=== PATIENT | male | born 1945 | race Caucasian/White ===

== ENCOUNTER → 2018-01-15 10:30 | Outpatient (CLI) | payer MEDICARE, SELFPAY ==
[2018-01-15 12:42] LABS: Absolute Neutrophil Count 4.2 X10^3/uL (2.0-7.7); Basophil# 0.05 X10^3/uL; Basophil% 0.7 % (0-1); Eosinophil# 0.19 X10^3/uL; Eosinophils% 2.8 % (0-5); Hemoglobin 14.4 g/dl (13.0-16.5); Lymphocyte % 23.9 % (19-41); Mean Corp Hgb Conc 34.3 g/gl (32-36); Mean Corpuscular Hgb 31.2 pg (27.0-32.0); Mean Corpuscular Volume 90.9 fL (80-94); Mean Platelet Vol. 11.2 fl (6.2-12.0); Monocyte# 0.69 X10^3/uL; Monocyte% 10.3 % (0-10); Neutrophil # 4.16 X10^3/uL (2.7-7.7); Neutrophil % 62.2 % (47-70); Platelet Count 171 K/mm3 (150-450); RBC Distribution Width CV 13.9 % (11.6-14.6); RBC Distribution Width SD 45.8 fl (35.1-43.9); Red Blood Count 4.62 M/mm3 (4.6-6.2); White Blood Count 6.7 K/mm3 (4.4-11.0)
[2018-01-15 12:48] LABS: POSITIVE COUNT NO; POSITIVE DIFFERENTIAL NO; POSITIVE MORPHOLOGY NO
[2018-01-15 13:01] LABS: ALB/GLOB Ratio 1.2 RATIO (0.9-2.4); AST(SGOT) 18 U/L (15-37); Alanine Aminotransfer ALT/SGPT 34 U/L (16-61); Albumin, Serum 3.8 g/dL (3.2-5.0); Alkaline Phosphatase 65 U/L (45-117); Anion Gap 4 (5-15); BUN 12 mg/dL (7-18); Calcium,Total 8.7 mg/dL (8.5-10.1); Chloride 111 mmol/L (98-107); Creatinine, Serum 1.09 mg/dL (0.70-1.30); EST Glomerular Filtration Rate 71 mL/min (>60); Est Glom Filt Rate - Afr Amer 86 mL/min (>60); Globulin 3.3 g/dL (2.2-4.2); Glucose 91 mg/dL (74-106); Potassium 4.7 mmol/L (3.5-5.1); Protein, Total 7.1 g/dL (6.4-8.2); Sodium Level 142 mmol/L (136-145); Thyroid Stim Hormone (TSH) 4.47 uIU/mL (0.358-3.74)
[2018-01-16 10:02] LABS: Vitamin D,25 Hydroxy 24.5 ng/mL (29.95-100.01)
== END ==
PROVIDERS: Family Provider Family Medicine Geriatric Medicine; PCP Family Medicine Geriatric Medicine; Visit Provider Family Medicine Geriatric Medicine
DX: E55.9 Vitamin D deficiency, unspecified (principal); F52.8 Other sexual dysfunction not due to a substance or known physiological condition; R53.83 Other fatigue
CPT/HCPCS: 36415; 80053; 82306; 84403; 84443; 85025

== ENCOUNTER → 2018-02-04 16:32 | Outpatient (CLI) | payer MEDICARE, SELFPAY ==
--- NOTE | 2018-02-04 16:40 | CT_ITS ---
STUDY: CT ABDOMEN AND PELVIS WITHOUT AND WITH CONTRAST REASON FOR EXAM: Male, 73 years old. Microhematuria RADIATION DOSAGE (If Supplied By Facility): CTDIvol = ( 19.08 ) mGy, DLP = ( 1478.71 ) mGycm TECHNIQUE: Transaxial images were obtained from the lower chest to the upper thighs without oral contrast. Imaging was obtained before and after administration of 100 ml of Isovue 300. Sagittal and coronal images were reconstructed. Individualized dose optimization techniques were used for this CT. COMPARISON: July 14, 2017 FINDINGS: There is minimal dependent atelectasis in both lung bases. There is no pleural effusion. The heart is normal in size. Numerous cysts are again seen in the liver with the largest measuring about 8.2 cm. The gallbladder is not visualized and is presumed surgically absent. The spleen is unremarkable. The pancreas is unremarkable. The adrenal glands are unremarkable. There are cysts in the right kidney with the largest measuring 4 cm in the upper pole. None show abnormal enhancement. There is no dilatation of the collecting system in the right kidney. There are cysts in the left kidney with the largest measuring 4.4 cm in the midpole. None show abnormal enhancement. There is no dilatation of the collecting system in the left kidney. The stomach is unremarkable. The small bowel is unremarkable. There are diverticula in the distal colon without adjacent stranding. The appendix is visualized and appears normal. There are minimal vascular calcifications. The inferior vena cava is unremarkable. The retroperitoneum is unremarkable. There is no free fluid in the abdomen. The urinary bladder is unremarkable. The prostate is normal in size with calcifications. There is a small umbilical hernia containing fat. There are mild degenerative changes in the visualized spine. CT/CT Abd/Pelvis W/WO Contrast IMPRESSION: No acute abnormalities are seen in the abdomen or pelvis. There are benign-appearing cysts in both kidneys. No renal stones are visualized. There is no urinary tract dilatation. No abnormalities are seen in the bladder. Again seen is diverticulosis of the distal colon. There are no acute bowel abnormalities. Electronically Signed: Amy Guo MD at 9:02 EDT Tel Direct: [phone], Service support ,
== END ==
PROVIDERS: Family Provider Family Medicine Geriatric Medicine; PCP Family Medicine Geriatric Medicine; Visit Provider Nurse Practitioner Adult Health
DX: R31.29 Other microscopic hematuria (principal)
CPT/HCPCS: 74178; Q9967

== ENCOUNTER → 2018-07-15 11:58 | Outpatient (CLI) | payer MEDICARE, SELFPAY ==
[2018-07-15 15:39] LABS: Absolute Lymphocyte Count 1.63 X10^3/ul (0.83-4.51); Absolute Neutrophil Count 4.6 X10^3/uL (2.0-7.7); Basophil# 0.04 X10^3/uL; Basophil% 0.6 % (0-1); Eosinophil# 0.13 X10^3/uL; Eosinophils% 1.9 % (0-5); Hematocrit 41.3 % (40-54); Hemoglobin 13.9 g/dl (13.0-16.5); Lymphocyte # 1.63 X10^3/ul (4.0); Lymphocyte % 23.4 % (19-41); Mean Corp Hgb Conc 33.7 g/gl (32-36); Mean Corpuscular Hgb 30.7 pg (27.0-32.0); Mean Corpuscular Volume 91.2 fL (80-94); Mean Platelet Vol. 11.1 fl (6.2-12.0); Monocyte# 0.57 X10^3/uL; Monocyte% 8.2 % (0-10); Neutrophil # 4.58 X10^3/uL (2.7-7.7); Neutrophil % 65.8 % (47-70); Platelet Count 168 K/mm3 (150-450); RBC Distribution Width SD 46.2 fl (35.1-43.9); Red Blood Count 4.53 M/mm3 (4.6-6.2)
[2018-07-15 15:47] LABS: POSITIVE COUNT NO; POSITIVE DIFFERENTIAL NO; POSITIVE MORPHOLOGY NO
[2018-07-15 16:01] LABS: Vitamin D,25 Hydroxy 20.1 ng/mL (29.95-100.01)
[2018-07-15 16:09] LABS: ALB/GLOB Ratio 1.2 RATIO (0.9-2.4); AST(SGOT) 16 U/L (15-37); Alanine Aminotransfer ALT/SGPT 32 U/L (16-61); Albumin, Serum 3.7 g/dL (3.2-5.0); Alkaline Phosphatase 66 U/L (45-117); Anion Gap 10 (5-15); BUN 16 mg/dL (7-18); BUN/Creat Ratio 15.5 RATIO (10-20); Calcium,Total 8.5 mg/dL (8.5-10.1); Chloride 111 mmol/L (98-107); Creatinine, Serum 1.03 mg/dL (0.70-1.30); EST Glomerular Filtration Rate 76 mL/min (>60); Est Glom Filt Rate - Afr Amer 91 mL/min (>60); Globulin 3.2 g/dL (2.2-4.2); Glucose 110 mg/dL (74-106); Potassium 3.9 mmol/L (3.5-5.1); Protein, Total 6.9 g/dL (6.4-8.2); Sodium Level 143 mmol/L (136-145); Thyroid Stim Hormone (TSH) 2.83 uIU/mL (0.358-3.74)
--- OUTSIDE RECORDS SUMMARY | 2018-10-16 16:25 | XMS RPT_ITS ---
:1945 Author Organization [facility] Care Team Providers Name Role Phone Steven, Francois Chi Attending Unavailable Steven, Francois Chi Primary Care Unavailable Steven, Francois Chi Attending Unavailable Steven, Francois Chi Primary Care Unavailable Vikki Kay Attending Unavailable Vikki Kay Referring Unavailable Steven, Francois Chi Primary Care Unavailable PROBLEMS PROBLEMS No Problem Records FoundPROCEDURES PROCEDURES No Procedure Records FoundRESULTS RESULTS CBC W/DIFF, AUTOMATED Collected: 07/15/2018 Status: F Source: [place] 12:00 PM [facility] REPOSITORY TYPE CODE TESTS RESULT OUT OF RANGE REFERENCE UNITS LAB L100.1000 4.4-11.0 K/mm3 Normal WBC 7.0 LAB L100.1200 4.6-6.2 M/mm3 Low RBC 4.53 LAB L100.1300 13.0-16.5 g/dl Normal HGB 13.9 LAB L100.1400 40-54 % Normal HCT 41.3 LAB L100.1500 80-94 fL Normal MCV 91.2 LAB L100.1600 27.0-32.0 pg Normal MCH 30.7 LAB L100.1700 32-36 g/gl Normal MCHC 33.7 LAB L100.1810 11.6-14.6 % Normal RDW CV 14.0 LAB L100.1820 35.1-43.9 fl High RDW SD 46.2 LAB L100.1900 150-450 K/mm3 Normal PLT 168 LAB L100.2000 6.2-12.0 fl Normal MPV 11.1 LAB L100.2100 47-70 % Normal NEUT% 65.8 LAB L100.2200 19-41 % Normal LY% 23.4 LAB L100.2300 0-10 % Normal MONO% 8.2 LAB L100.2400 0-5 % Normal EO% 1.9 LAB L100.2500 0-1 % Normal BASO% 0.6 LAB L100.2550 0.0-0.9 % Normal IM GRAN % 0.100 Result Comment: IG% - Immature Granulocytes (promyelocytes, myelocytes and metamyelocytes) > 1% indicates that a LEFT SHIFT is Present. LAB L100.2620 2.0-7.7 X10 3/uL Normal Absolute Neut 4.6 LAB L100.2720 0.83-4.51 X10 3/ul Normal Absolute Lymph 1.63 Performed By: #### L100.0100 #### [facility] [address] [place], [place], [address] VITAMIN D,25 HYDROXY Collected: 07/15/2018 Status: F Source: [place] 12:00 [facility] REPOSITORY TYPE CODE TESTS RESULT OUT OF REFERENCE UNITS RANGE LAB L506.1000 29.95-100.01 ng/mL Low Vitamin D 20.1 25-OH Result Comment: Vitamin D 25(OH) Status Range Deficiency <20 ng/mL (50nmol/L) Insuffciency 20 - 30 ng/mL (50 - 75 nmol/L) Sufficiency 30 - 100 ng/mL (75 - 250 nmol/L) Toxicity >100 ng/mL (>250 nmol/L) Performed By: #### L506.1000, L509.3000 #### [facility] [address] [place], [place], [address] TESTOSTERONE, SERUM TOTAL Collected: 07/15/2018 Status: F Source: [place] 12:00 PM [facility] REPOSITORY TYPE CODE TESTS RESULT OUT OF REFERENCE UNITS RANGE LAB L509.3000 ng/dL Testosterone Normal 452.06 Result Comment: NORMAL REFERENCE RANGES MALE AGE <50 123.06 - 813.86 ng/dL MALE AGE >50 89.98 - 780.10 ng/dL FEMALE PREMENOPAUSE AGE 21 - 60 9.01 - 47.94 ng/dL FEMALE POSTMENOPAUSE AGE 45 - 89 <7.00 - 45.62 ng/dL REFERENCE RANGE AND METHODOLOGY CHANGED 07/16/2017 Performed By: #### L506.1000, L509.3000 #### [facility] [address] [place], [address] COMPREHENSIVE METABOLIC Collected: 07/15/2018 Status: F [facility] REPOSITORY TYPE CODE TESTS RESULT OUT OF RANGE REFERENCE UNITS LAB L501.0100 74-106 mg/dL High GLU 110 Result Comment: Fasting Glucose result from 100 to 125 mg/dL suggests IMPAIRED HOMEOSTASIS per A.D.A. criteria. Please note revised GLUCOSE reference range effective 2017. LAB L501.1000 7-18 mg/dL Normal BUN 16 LAB L501.1100 0.70-1.30 mg/dL Normal CREAT,SERUM 1.03 Result Comment: The validity of the calculated GFR AND GFRAA in patients over 70 years has not been determined. Clinical correlation is essential. LAB L501.1110 >60 mL/min Normal EST GFR 76 Result Comment: Non- GFR Calc LAB L501.1115 >60 mL/min Normal EST GFR - AA 91 Result Comment: GFR Calc LAB L501.1300 10-20 RATIO Normal BUN/CRE 15.5 LAB L501.1500 6.4-8.2 g/dL T Normal PROT 6.9 LAB L501.1800 3.2-5.0 g/dL Normal ALB 3.7 LAB L501.1950 2.2-4.2 g/dL Normal GLOB 3.2 LAB L501.2000 0.9-2.4 RATIO Normal A/G 1.2 LAB L501.2200 8.5-10.1 mg/dL CA Normal 8.5 LAB L501.4100 15-37 U/L Normal AST 16 LAB L501.4305 45-117 U/L Normal ALK P 66 LAB L501.4405 16-61 U/L Normal ALT 32 LAB L501.4600 0.20-1.00 mg/dL T Normal BILI 0.40 LAB L501.5300 136-145 mmol/L NA Normal 143 LAB L501.5600 3.5-5.1 mmol/L K Normal 3.9 LAB L501.5900 98-107 mmol/L High CL 111 LAB L501.6100 21.0-32.0 mmol/L Normal CO2 22.0 LAB L501.6200 5-15 Normal GAP 10 Performed By: #### L500.4050, L501.9520 #### [facility] [address] [place], [address] THYROID STIM HORMONE Collected: 07/15/2018 Status: F Source: [place] (TSH) 12:00 PM [facility] REPOSITORY TYPE CODE TESTS RESULT OUT OF RANGE REFERENCE UNITS LAB L501.9520 0.358-3.74 uIU/mL Normal TSH 2.83 Performed By: #### L500.4050, L501.9520 #### [facility] [address] [place], [address] CT ABD/PELVIS W/WO Observed: 02/04/2018 Status: F Source: [place] CONTRAST 4:40 PM [facility] REPOSITORY [facility] Imaging Services [address] [place] [address] CT Abd/Pelvis W/WO Contrast MR#: [id number] Acct: [id number] Name: LEWIS WALLER Rep #: [id number] : 1945 M 73 From: Amy Guo MD PCP: Steven ANSARI,[facility] Status: REG CLI Study: CT Abd/Pelvis W/WO Contrast Date of Exam: 02/04/18 Exam# [id number] 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 Microhematuria RADIATION DOSAGE (If Supplied By Facility): CTDIvol = ( 19.08 ) mGy, DLP = ( 1478.71 ) mGycm TECHNIQUE: Transaxial images were obtained from the lower chest to the upper thighs without oral contrast. Imaging was obtained before and after administration of 100 ml of Isovue 300. Sagittal and coronal images were reconstructed. Individualized dose optimization techniques were used for this CT. COMPARISON: July 14, 2017 FINDINGS: There is minimal dependent atelectasis in both lung bases. There is no pleural effusion. The heart is normal in size. Numerous cysts are again seen in the liver with the largest measuring about 8.2 cm. The gallbladder is not visualized and is presumed surgically absent. The spleen is unremarkable. The pancreas is unremarkable. The adrenal glands are unremarkable. There are cysts in the right kidney with the largest measuring 4 cm in the upper pole. None show abnormal enhancement. There is no dilatation of the collecting system in the right kidney. There are cysts in the left kidney with the largest measuring 4.4 cm in the midpole. None show abnormal enhancement. There is no dilatation of the collecting system in the left kidney. The stomach is unremarkable. The small bowel is unremarkable. There are diverticula in the distal colon without adjacent stranding. The appendix is visualized and appears normal. There are minimal vascular calcifications. The inferior vena cava is unremarkable. The retroperitoneum is unremarkable. There is no free fluid in the abdomen. The urinary bladder is unremarkable. The prostate is normal in size with calcifications. There is a small umbilical hernia containing fat. There are mild degenerative changes in the visualized spine. CT/CT Abd/Pelvis W/WO Contrast IMPRESSION: No acute abnormalities are seen in the abdomen or pelvis. There are benign-appearing cysts in both kidneys. No renal stones are visualized. There is no urinary tract dilatation. No abnormalities are seen in the bladder. Again seen is diverticulosis of the distal colon. There are no acute bowel abnormalities. 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 CBC W/DIFF, AUTOMATED Collected: 01/15/2018 Status: F Source: [place] 10:31 AM [facility] REPOSITORY TYPE CODE TESTS RESULT OUT OF RANGE REFERENCE UNITS LAB L100.1000 4.4-11.0 K/mm3 Normal WBC 6.7 LAB L100.1200 4.6-6.2 M/mm3 Normal RBC 4.62 LAB L100.1300 13.0-16.5 g/dl Normal HGB 14.4 LAB L100.1400 40-54 % Normal HCT 42.0 LAB L100.1500 80-94 fL Normal MCV 90.9 LAB L100.1600 27.0-32.0 pg Normal MCH 31.2 LAB L100.1700 32-36 g/gl Normal MCHC 34.3 LAB L100.1810 11.6-14.6 % Normal RDW CV 13.9 LAB L100.1820 35.1-43.9 fl High RDW SD 45.8 LAB L100.1900 150-450 K/mm3 Normal PLT 171 LAB L100.2000 6.2-12.0 fl Normal MPV 11.2 LAB L100.2100 47-70 % Normal NEUT% 62.2 LAB L100.2200 19-41 % Normal LY% 23.9 LAB L100.2300 0-10 % High MONO% 10.3 LAB L100.2400 0-5 % Normal EO% 2.8 LAB L100.2500 0-1 % Normal BASO% 0.7 LAB L100.2550 0.0-0.9 % Normal IM GRAN % 0.100 Result Comment: IG% - Immature Granulocytes (promyelocytes, myelocytes and metamyelocytes) > 1% indicates that a LEFT SHIFT is Present. LAB L100.2620 2.0-7.7 X10 3/uL Normal Absolute Neut 4.2 LAB L100.2720 0.83-4.51 X10 3/ul Normal Absolute Lymph 1.60 Performed By: #### L100.0100 #### [facility] [address] [place], [address] COMPREHENSIVE METABOLIC Collected: 01/15/2018 Status: F Source: [facility] 10:31 AM [facility] REPOSITORY TYPE CODE TESTS RESULT OUT OF RANGE REFERENCE UNITS LAB L501.0100 74-106 mg/dL Normal GLU 91 Result Comment: Please note revised GLUCOSE reference range effective 2017. LAB L501.1000 7-18 mg/dL Normal BUN 12 LAB L501.1100 0.70-1.30 mg/dL Normal CREAT,SERUM 1.09 Result Comment: The validity of the calculated GFR AND GFRAA in patients over 70 years has not been determined. Clinical correlation is essential. LAB L501.1110 >60 mL/min Normal EST GFR 71 Result Comment: Non- GFR Calc LAB L501.1115 >60 mL/min Normal EST GFR - AA 86 Result Comment: GFR Calc LAB L501.1300 10-20 RATIO Normal BUN/CRE 11.0 LAB L501.1500 6.4-8.2 g/dL T Normal PROT 7.1 LAB L501.1800 3.2-5.0 g/dL Normal ALB 3.8 LAB L501.1950 2.2-4.2 g/dL Normal GLOB 3.3 LAB L501.2000 0.9-2.4 RATIO Normal A/G 1.2 LAB L501.2200 8.5-10.1 mg/dL CA Normal 8.7 LAB L501.4100 15-37 U/L Normal AST 18 LAB L501.4305 45-117 U/L Normal ALK P 65 LAB L501.4405 16-61 U/L Normal ALT 34 LAB L501.4600 0.20-1.00 mg/dL T Normal BILI 0.60 LAB L501.5300 136-145 mmol/L NA Normal 142 LAB L501.5600 3.5-5.1 mmol/L K Normal 4.7 LAB L501.5900 98-107 mmol/L High CL 111 LAB L501.6100 21.0-32.0 mmol/L Normal CO2 27.0 LAB L501.6200 5-15 Low GAP 4 Performed By: #### L500.4050, L501.9520 #### [facility] [address] [facility] [place], [place], [address] THYROID STIM HORMONE Collected: 01/15/2018 Status: F Source: [place] (TSH) 10:31 AM [facility] REPOSITORY TYPE CODE TESTS RESULT OUT OF RANGE REFERENCE UNITS LAB L501.9520 0.358-3.74 uIU/mL High TSH 4.47 Performed By: #### L500.4050, L501.9520 #### [facility] [address] [place], [place], [id number] VITAMIN D,25 HYDROXY Collected: 01/15/2018 Status: F Source: [place] 10:31 AM [facility] REPOSITORY TYPE CODE TESTS RESULT OUT OF REFERENCE UNITS RANGE LAB L506.1000 29.95-100.01 ng/mL Low Vitamin D 24.5 25-OH Result Comment: Vitamin D 25(OH) Status Range Deficiency <20 ng/mL (50nmol/L) Insuffciency 20 - 30 ng/mL (50 - 75 nmol/L) Sufficiency 30 - 100 ng/mL (75 - 250 nmol/L) Toxicity >100 ng/mL (>250 nmol/L) Performed By: #### L506.1000, L509.3000 #### [facility] [address] [place], [address] TESTOSTERONE, SERUM TOTAL Collected: 01/15/2018 Status: F Source: [place] 10:31 AM [facility] REPOSITORY TYPE CODE TESTS RESULT OUT OF REFERENCE UNITS RANGE LAB L509.3000 ng/dL Testosterone Normal 509.16 Result Comment: NORMAL REFERENCE RANGES MALE AGE <50 123.06 - 813.86 ng/dL MALE AGE >50 89.98 - 780.10 ng/dL FEMALE PREMENOPAUSE AGE 21 - 60 9.01 - 47.94 ng/dL FEMALE POSTMENOPAUSE AGE 45 - 89 <7.00 - 45.62 ng/dL REFERENCE RANGE AND METHODOLOGY CHANGED 07/16/2017 Performed By: #### L506.1000, L509.3000 #### [facility] [address] [place], [place], [address] ALLERGIES ALLERGIES No Allergies Records FoundENCOUNTERS ENCOUNTERS ADMIT/DISCHARGE ACCOUNT ADMITTING ENCOUNTER LOCATION SOURCE NUMBER CLASS 07/15/2018 [id number] Ambulatory [facility] 1 [facility] ing:POLAB3 Repository 02/04/2018 [id number] Ambulatory [address] ing:CT Repository 01/15/2018 [id number] Ambulatory [address] ing:POLAB3 Repository PAYERS PAYERS ENCOUNTER GUARANTOR PAYER SUBSCRIBER SOURCE 07/15/2018 Lewis Loera Primary Insurance:SATHYA Powellnick1471 MCR HMOPolicy Number: HostnickDOB: Community Mehul Dangelofective [id number] [place] Date[facility]15-[place]-[facility] BOX Repository [address]Ftw: [phone] [place], [place] [phone] (HP) [phone]: 07/15/2018 Secondary NOT GIVENUNK [place] Insurance:SELF PAY Community INSURANCEPolicy Number: Hospital Effective Repository Date:2018-02-02 02/04/2018 Lewis A Primary Insurance:AETNA Lewis A [place] [id number] [facility] HMOPolicy Number: HostnickDOB: Community Mehul Dangelofective [id number] [place] Date:6597-48-80OO BOX Repository [address]Jra: [phone] [place] [phone] (HP) [phone]: 02/04/2018 Secondary NOT GIVENUNK [place] Insurance:SELF PAY Community INSURANCEPolicy Number: Hospital Effective Repository Date:2018-01-20 01/15/2018 Lewis A Primary Insurance:AETNA Lewis A [place] [id number] [facility]: HostnickDOB: Community Mehul Dangelofective [id number] Date[place]5634-09-44CJ BOX Repository [address]Rqv: [phone] [place], [place] [phone] (HP) [phone]: 01/15/2018 Secondary NOT GIVENUNK [place] Insurance:SELF PAY Community INSURANCEPolicy Number: Hospital Effective Repository Date:2018-01-15
== END ==
PROVIDERS: Family Provider Family Medicine Geriatric Medicine; PCP Family Medicine Geriatric Medicine; Visit Provider Family Medicine Geriatric Medicine
DX: E55.9 Vitamin D deficiency, unspecified (principal); E03.9 Hypothyroidism, unspecified; R53.83 Other fatigue; F52.8 Other sexual dysfunction not due to a substance or known physiological condition
CPT/HCPCS: 36415; 80053; 82306; 84403; 84443; 85025

== ENCOUNTER → 2019-01-13 | Outpatient (CLI) | payer MEDICARE, SELFPAY ==
[2019-01-13 12:37] LABS: Absolute Lymphocyte Count 1.38 X10^3/ul (0.83-4.51); Absolute Neutrophil Count 4.3 X10^3/uL (2.0-7.7); Basophil# 0.03 X10^3/uL; Basophil% 0.5 % (0-1); Eosinophils% 1.6 % (0-5); Hematocrit 42.9 % (40-54); Hemoglobin 14.8 g/dl (13.0-16.5); Lymphocyte # 1.38 X10^3/ul (4.0); Lymphocyte % 21.7 % (19-41); Mean Corp Hgb Conc 34.5 g/gl (32-36); Mean Corpuscular Hgb 30.7 pg (27.0-32.0); Mean Platelet Vol. 10.7 fl (6.2-12.0); Monocyte# 0.51 X10^3/uL; Neutrophil # 4.34 X10^3/uL (2.7-7.7); Platelet Count 178 K/mm3 (150-450); RBC Distribution Width CV 13.9 % (11.6-14.6); Red Blood Count 4.82 M/mm3 (4.6-6.2); White Blood Count 6.4 K/mm3 (4.4-11.0)
[2019-01-13 12:38] LABS: POSITIVE COUNT NO; POSITIVE DIFFERENTIAL NO; POSITIVE MORPHOLOGY NO
[2019-01-13 13:03] LABS: Vitamin D,25 Hydroxy 24.8 ng/mL (29.95-100.01)
[2019-01-13 13:13] LABS: ALB/GLOB Ratio 1.1 RATIO (0.9-2.4); AST(SGOT) 18 U/L (15-37); Alanine Aminotransfer ALT/SGPT 32 U/L (16-61); Albumin, Serum 3.7 g/dL (3.2-5.0); Alkaline Phosphatase 68 U/L (45-117); Anion Gap 8 (5-15); BUN 14 mg/dL (7-18); BUN/Creat Ratio 11.8 RATIO (10-20); Calcium,Total 8.7 mg/dL (8.5-10.1); Chloride 111 mmol/L (98-107); Creatinine, Serum 1.19 mg/dL (0.70-1.30); EST Glomerular Filtration Rate 64 mL/min (>60); Est Glom Filt Rate - Afr Amer 77 mL/min (>60); Globulin 3.3 g/dL (2.2-4.2); Glucose 135 mg/dL (74-106); Potassium 4.1 mmol/L (3.5-5.1); Sodium Level 144 mmol/L (136-145); Thyroid Stim Hormone (TSH) 2.53 uIU/mL (0.358-3.74)
== END | disposition home or self-care (01) ==
PROVIDERS: Family Provider Family Medicine Geriatric Medicine; PCP Family Medicine Geriatric Medicine; Visit Provider Family Medicine Geriatric Medicine
DX: E55.9 Vitamin D deficiency, unspecified (principal); R53.83 Other fatigue; F52.8 Other sexual dysfunction not due to a substance or known physiological condition
CPT/HCPCS: 36415; 80053; 82306; 84403; 84443; 85025

== ENCOUNTER → 2019-08-26 09:01 | Outpatient (CLI) | payer MEDICARE, SELFPAY ==
[2019-08-26 10:47] LABS: ALB/GLOB Ratio 1.3 RATIO (0.9-2.4); AST(SGOT) 15 U/L (15-37); Alanine Aminotransfer ALT/SGPT 37 U/L (16-61); Albumin, Serum 3.9 g/dL (3.2-5.0); Alkaline Phosphatase 59 U/L (45-117); Anion Gap 4 (5-15); BUN 15 mg/dL (7-18); BUN/Creat Ratio 13.6 RATIO (10-20); Calcium,Total 8.8 mg/dL (8.5-10.1); Chloride 115 mmol/L (98-107); Cholesterol 132 mg/dL (200); EST Glomerular Filtration Rate 70 mL/min (>60); Est Glom Filt Rate - Afr Amer 85 mL/min (>60); Globulin 2.9 g/dL (2.2-4.2); Glucose 95 mg/dL (74-106); High Density Lipoprotein 57 mg/dL; Potassium 4.2 mmol/L (3.5-5.1); Protein, Total 6.8 g/dL (6.4-8.2); Sodium Level 144 mmol/L (136-145); T4 Free Direct 0.93 ng/dL (0.76-1.46); Thyroid Stim Hormone (TSH) 3.53 uIU/mL (0.358-3.74); Triglycerides 65 mg/dL; Very Low Density Lipoprotein 13 mg/dL (5-40)
[2019-08-27 19:24] LABS: Thyroglobulin Antibody < 1.0 IU/mL (0.0-0.9); Thyroid Peroxidase AB 9 IU/mL (0-34)
== END ==
PROVIDERS: PCP Family Medicine; Referring Provider Family Medicine; Visit Provider Family Medicine
DX: E03.9 Hypothyroidism, unspecified (principal); E78.00 Pure hypercholesterolemia, unspecified
CPT/HCPCS: 36415; 80053; 80061; 84439; 84443; 86376; 86800

== ENCOUNTER → 2019-09-21 11:55 | Outpatient (CLI) | payer MEDICARE, SELFPAY ==
[2019-09-21 14:06] LABS: Anion Gap 4 (5-15); BUN 14 mg/dL (7-18); BUN/Creat Ratio 10.9 RATIO (10-20); Calcium,Total 9.2 mg/dL (8.5-10.1); Chloride 110 mmol/L (98-107); Creatinine, Serum 1.29 mg/dL (0.70-1.30); EST Glomerular Filtration Rate 58 mL/min (>60); Est Glom Filt Rate - Afr Amer 70 mL/min (>60); Glucose 110 mg/dL (74-106); Potassium 3.7 mmol/L (3.5-5.1); Sodium Level 142 mmol/L (136-145)
== END ==
PROVIDERS: PCP Family Medicine; Referring Provider Family Medicine; Visit Provider Family Medicine
DX: I10 Essential (primary) hypertension (principal)
CPT/HCPCS: 36415; 80048

== ENCOUNTER 2019-10-01 15:03 | Emergency (ER) | payer MEDICARE, SELFPAY ==
[2019-10-01 15:04] VITALS: BP 175/93; PULSE 65; RESP 18; TEMP 36; O2SAT 98; BMI 28.1
--- NOTE | 2019-10-01 15:30 | CT_ITS ---
STUDY: CT BRAIN WITHOUT CONTRAST REASON FOR EXAM: Male, 74 years old. DIZZINESS RADIATION DOSAGE (If Supplied By Facility): CTDIvol = ( 60.81 ) mGy, DLP = ( 1112.69 ) mGycm TECHNIQUE: Transaxial CT imaging of the brain was performed without administration of intravenous contrast material. Individualized dose optimization techniques were used for this CT. COMPARISON: No relevant priors. FINDINGS: Normal soft tissue structures. Normal calvarium. There is mild cerebral atrophy with widening of the extra-axial spaces and ventricular dilatation. There are areas of decreased attenuation within the white matter tracts of the supratentorial brain, consistent with microvascular disease changes. Normal basal ganglia and thalami. Normal brainstem. There is mild cerebellar atrophy. There is no intracranial hemorrhage. There are no findings of an acute ischemic infarction. Normal visualized paranasal sinuses. CT/Brain/Head without Contrast IMPRESSION: Chronic involutional changes of the brain. No acute abnormalities are seen. Electronically Signed: Brent Pepe MD at 16:25 EST , Service support ,
--- NOTE | 2019-10-01 15:30 | EKG12_ITS ---
Test Reason : DIZZINESS Blood Pressure : / mmHG Vent. Rate : 056 BPM Atrial Rate : 056 BPM P-R Int : 136 ms QRS Dur : 104 ms QT Int : 442 ms P-R-T Axes : 002 -20 026 degrees QTc Int : 426 ms Sinus bradycardia Otherwise normal ECG Confirmed by GERALDINE ANSARI, ARTURO ([id number]), pictures editor VJ PARMAR ([id number]) on 10/04/2019 3:28:24 PM Referred By: NOEL Confirmed By:ARTURO CHANDLER MD
--- NOTE | 2019-10-01 15:33 | ED.VISSUMM ---
- ER Visit Summary Date of Service: 10/01/19 Chief Complaint: Dizziness History of Present Illness: The patient is a 74 M who presents with dizziness that began yesterday. Patient states it has been intermittent. Patient states he saw his primary care physician today and was given a prescription for Antivert. Patient states he took 1 dose earlier today which helped. Patient states she laid down and when he woke back up the dizziness had returned. Patient describes the dizziness as a spinning sensation. Patient states nothing makes it better or worse. Patient denies any ear pain or tinnitus. Patient admits to nausea but denies any vomiting. Physical Examination: Vital signs are stable. Patient is afebrile. Patient is in no acute distress. Pupils are equal, round, and reactive to light bilaterally. Extraocular muscles are intact. There is no nystagmus noted. Oral mucosa is pink and moist. Neck is supple. Trachea is midline. There is no JVD. Heart was regular rate and rhythm. Lungs are clear and equal bilaterally. Abdomen is soft. Bowel sounds are normal. There is no tenderness. Cranial nerves II through XII are intact. There are no focal motor or sensory deficits noted. Test Results: CT scan of the brain was obtained. There are chronic changes. This was interpreted by the radiologist. EKG showed a normal sinus rhythm with a rate of 56. There are no acute ST or T wave changes. CBC and comprehensive metabolic profile was obtained and was within normal limits. Troponin was normal. Emergency Department Course and Treatment: Patient was given a dose of Valium here. Patient was feeling better on reevaluation. Patient was given a prescription for Valium to take. Patient was instructed to follow-up with his primary care physician in 5 to 7 days. Patient understood and was agreeable with the plan. All questions were answered. Disposition: Discharge home Impression: Vertigo This note was generated with Proficient dictation software. It may contain incorrect words, spelling, and punctuation that were not noted in review of the chart prior to signing ED Disposition - Plan for ED Patient: Disposition: Home or Assisted Living Diagnosis: Vertigo Instructions: VERTIGO, Unspecified Prescriptions: Diazepam [Valium] 2 mg PO TID PRN PRN #10 tab PRN Reason: Vertigo Prescription Printed Referrals: Mele Monroe MD [Primary Care Provider] - 3-5 Days
--- NOTE | 2019-10-01 15:36 | NURSING ---
NO OLD EKGS
[2019-10-01 15:48] VITALS: PULSE 54; RESP 16
[2019-10-01 15:49] LABS: Absolute Lymphocyte Count 1.24 X10^3/uL (0.83-4.51); Absolute Neutrophil Count 4.3 X10^3/uL (2.0-7.7); Basophil# 0.04 X10^3/uL; Basophil% 0.7 % (0-1); Eosinophil# 0.09 X10^3/uL; Eosinophils% 1.5 % (0-5); Hematocrit 40.2 % (40-54); Hemoglobin 13.7 g/dL (13.0-16.5); Lymphocyte # 1.24 X10^3/ul (4.0); Lymphocyte % 20.2 % (19-41); Mean Corp Hgb Conc 34.1 g/dL (32-36); Mean Corpuscular Hgb 30.9 pg (27.0-32.0); Mean Corpuscular Volume 90.7 fL (80-94); Mean Platelet Vol. 10.5 fl (6.2-12.0); Monocyte# 0.51 X10^3/uL; Monocyte% 8.3 % (0-10); NRBC Flagged by Analyzer 0 % (0-5); Neutrophil # 4.25 X10^3/uL (2.7-7.7); Platelet Count 154 K/mm3 (150-450); RBC Distribution Width CV 13.8 % (11.6-14.6); RBC Distribution Width SD 46.2 fl (35.1-43.9); Red Blood Count 4.43 M/mm3 (4.6-6.2); White Blood Count 6.2 K/mm3 (4.4-11.0)
[2019-10-01] MEDS: 0.9% Normal Saline 1,000 ML 1000 ML IV (15:51)
[2019-10-01] MEDS: diazePAM 5 MG Tablet 2.5 MG PO (15:51)
[2019-10-01 16:07] LABS: ALB/GLOB Ratio 1.1 RATIO (0.9-2.4); AST(SGOT) 17 U/L (15-37); Alanine Aminotransfer ALT/SGPT 33 U/L (16-61); Albumin, Serum 3.5 g/dL (3.2-5.0); Alkaline Phosphatase 54 U/L (45-117); Anion Gap 4 (5-15); BUN 13 mg/dL (7-18); BUN/Creat Ratio 12.1 RATIO (10-20); Calcium,Total 8.5 mg/dL (8.5-10.1); Chloride 114 mmol/L (98-107); Creatinine, Serum 1.07 mg/dL (0.70-1.30); EST Glomerular Filtration Rate 72 mL/min (>60); Est Glom Filt Rate - Afr Amer 87 mL/min (>60); Estimated Creatinine Clearance 60.37 ml/min; Globulin 3.1 g/dL (2.2-4.2); Glucose 117 mg/dL (74-106); Potassium 4.1 mmol/L (3.5-5.1); Protein, Total 6.6 g/dL (6.4-8.2); Sodium Level 143 mmol/L (136-145)
[2019-10-01 16:40] VITALS: BP 136/78; PULSE 51; RESP 14; O2SAT 99
[2019-10-01 17:44] VITALS: RESP 16
== END 2019-10-01 17:45 | disposition home or self-care (01) ==
PROVIDERS: Emergency Provider Emergency Medicine; PCP Family Medicine
DX: R42 Dizziness and giddiness (principal)
CPT/HCPCS: 70450; 80053; 84484; 85025; 93005; 96360; 99283; J7030; A4216

== ENCOUNTER → 2019-12-30 10:16 | Outpatient (CLI) | payer MEDICARE, SELFPAY ==
[2019-12-30 12:39] LABS: ALB/GLOB Ratio 1.2 RATIO (0.9-2.4); AST(SGOT) 20 U/L (15-37); Alanine Aminotransfer ALT/SGPT 37 U/L (16-61); Albumin, Serum 3.7 g/dL (3.2-5.0); Alkaline Phosphatase 56 U/L (45-117); Anion Gap 6 (5-15); BUN 11 mg/dL (7-18); BUN/Creat Ratio 10.7 RATIO (10-20); Calcium,Total 8.9 mg/dL (8.5-10.1); Chloride 111 mmol/L (98-107); Creatinine, Serum 1.03 mg/dL (0.70-1.30); EST Glomerular Filtration Rate 75 mL/min (>60); Est Glom Filt Rate - Afr Amer 91 mL/min (>60); Globulin 3.1 g/dL (2.2-4.2); Glucose 97 mg/dL (74-106); Potassium 4.1 mmol/L (3.5-5.1); Protein, Total 6.8 g/dL (6.4-8.2); Sodium Level 143 mmol/L (136-145)
== END ==
PROVIDERS: PCP Family Medicine; Referring Provider Family Medicine; Visit Provider Family Medicine
DX: E78.00 Pure hypercholesterolemia, unspecified (principal)
CPT/HCPCS: 36415; 80053

== ENCOUNTER → 2020-03-30 17:42 | Outpatient (CLI) | payer MEDICARE, SELFPAY | PROVIDERS: PCP Family Medicine; Referring Provider Family Medicine; Visit Provider Family Medicine | DX: N45.1 Epididymitis (principal) | CPT/HCPCS: 87086; 87088 ==

== ENCOUNTER → 2020-06-29 09:27 | Outpatient (CLI) | payer MEDICARE, SELFPAY ==
[2020-06-29 12:19] LABS: Absolute Lymphocyte Count 1.81 X10^3/uL (0.83-4.51); Absolute Neutrophil Count 5.1 X10^3/uL (2.0-7.7); Basophil# 0.06 X10^3/uL; Basophil% 0.8 % (0-1); Eosinophil# 0.15 X10^3/uL; Eosinophils% 1.9 % (0-5); Hematocrit 44.2 % (40-54); Hemoglobin 14.2 g/dL (13.0-16.5); Lymphocyte # 1.81 X10^3/ul (4.0); Lymphocyte % 23.1 % (19-41); Mean Corp Hgb Conc 32.1 g/dL (32-36); Mean Corpuscular Hgb 30.3 pg (27.0-32.0); Mean Corpuscular Volume 94.4 fL (80-94); Mean Platelet Vol. 11.2 fl (6.2-12.0); Monocyte# 0.64 X10^3/uL; Monocyte% 8.2 % (0-10); NRBC Flagged by Analyzer 0 % (0-5); Neutrophil # 5.14 X10^3/uL (2.7-7.7); Neutrophil % 65.7 % (47-70); Platelet Count 175 K/mm3 (150-450); RBC Distribution Width CV 14.1 % (11.6-14.6); RBC Distribution Width SD 49.1 fl (35.1-43.9); Red Blood Count 4.68 M/mm3 (4.6-6.2); White Blood Count 7.8 K/mm3 (4.4-11.0)
[2020-06-29 12:39] LABS: ALB/GLOB Ratio 1.2 RATIO (0.9-2.4); AST(SGOT) 15 U/L (15-37); Alanine Aminotransfer ALT/SGPT 27 U/L (16-61); Alkaline Phosphatase 63 U/L (45-117); Anion Gap 4 (5-15); BUN 16 mg/dL (7-18); BUN/Creat Ratio 13.9 RATIO (10-20); Chloride 114 mmol/L (98-107); Cholesterol 138 mg/dL (200); Creatinine, Serum 1.15 mg/dL (0.70-1.30); EST Glomerular Filtration Rate 66 mL/min (>60); Est Glom Filt Rate - Afr Amer 80 mL/min (>60); Globulin 3.3 g/dL (2.2-4.2); Glucose 90 mg/dL (74-106); High Density Lipoprotein 57 mg/dL; Potassium 4.2 mmol/L (3.5-5.1); Protein, Total 7.3 g/dL (6.4-8.2); Sodium Level 144 mmol/L (136-145); T4 Free Direct 1.03 ng/dL (0.76-1.46); Thyroid Stim Hormone (TSH) 3.77 uIU/mL (0.358-3.74); Triglycerides 55 mg/dL; Very Low Density Lipoprotein 11 mg/dL (5-40)
== END ==
PROVIDERS: PCP Family Medicine; Visit Provider Family Medicine
DX: E03.9 Hypothyroidism, unspecified (principal); E78.00 Pure hypercholesterolemia, unspecified
CPT/HCPCS: 36415; 80053; 80061; 84439; 84443; 85025

== ENCOUNTER → 2020-07-20 12:45 | Outpatient (CLI) | payer MEDICARE, SELFPAY | PROVIDERS: PCP Family Medicine; Referring Provider Family Medicine; Visit Provider Family Medicine | DX: B34.9 Viral infection, unspecified (principal) | CPT/HCPCS: 87635; U0003 ==

== ENCOUNTER → 2020-08-02 09:59 | Outpatient (CLI) | payer MEDICARE, SELFPAY ==
--- NOTE | 2020-08-02 10:02 | RAD_ITS ---
STUDY: X-RAY CHEST REASON FOR EXAM: Male, 75 years old. chest pain TECHNIQUE: PA and lateral views of the chest. COMPARISON: 05/23/2016 FINDINGS: The lungs are clear and expanded. There is no demonstrated pleural abnormality. Normal size heart. Normal mediastinum and berhane. Normal visualized pulmonary arteries. Normal visualized aortic arch and descending thoracic aorta. Normal visualized thoracic spine. Normal visualized ribs, clavicles, and shoulders. There is no demonstrated abnormality of the visualized soft tissue structures of the upper abdomen. RAD/Chest PA and Lateral IMPRESSION: Normal x-ray examination of the chest. Electronically Signed: Atif Banks MD at 17:16 EST Tel , Service support ,
[2020-08-02 10:14] LABS: Bacteria 0 SEEN /hpf (None Seen); Mucous, Urine 0 SEEN /hpf (<or=2+); Red Blood Cells-Urine 0 SEEN /hpf (0-5); Squamous Epithelial Cells - UA 0 SEEN /hpf (0-5); White Blood Cells 0 SEEN /hpf (0-5)
[2020-08-02 12:49] LABS: ALB/GLOB Ratio 1.2 RATIO (0.9-2.4); AST(SGOT) 10 U/L (15-37); Alanine Aminotransfer ALT/SGPT 30 U/L (16-61); Alkaline Phosphatase 63 U/L (45-117); BUN 13 mg/dL (7-18); BUN/Creat Ratio 11.8 RATIO (10-20); Calcium,Total 8.6 mg/dL (8.5-10.1); Chloride 114 mmol/L (98-107); Cholesterol 138 mg/dL (200); EST Glomerular Filtration Rate 70 mL/min (>60); Est Glom Filt Rate - Afr Amer 84 mL/min (>60); Globulin 3.3 g/dL (2.2-4.2); Glucose 94 mg/dL (74-106); Potassium 4.3 mmol/L (3.5-5.1); Protein, Total 7.3 g/dL (6.4-8.2); Sodium Level 142 mmol/L (136-145); Triglycerides 58 mg/dL
[2020-08-02 12:50] LABS: Absolute Lymphocyte Count 1.42 X10^3/uL (0.83-4.51); Absolute Neutrophil Count 3.8 X10^3/uL (2.0-7.7); Anion Gap 2 (5-15); Basophil# 0.04 X10^3/uL; Basophil% 0.7 % (0-1); Eosinophil# 0.12 X10^3/uL; Eosinophils% 2.1 % (0-5); Hemoglobin 14.7 g/dL (13.0-16.5); High Density Lipoprotein 55 mg/dL; Lymphocyte # 1.42 X10^3/ul (4.0); Lymphocyte % 24.3 % (19-41); Mean Corp Hgb Conc 33.4 g/dL (32-36); Mean Corpuscular Hgb 30.8 pg (27.0-32.0); Mean Corpuscular Volume 92.2 fL (80-94); Mean Platelet Vol. 11.3 fl (6.2-12.0); Monocyte# 0.46 X10^3/uL; Monocyte% 7.9 % (0-10); NRBC Flagged by Analyzer 0 % (0-5); Neutrophil % 64.8 % (47-70); Platelet Count 158 K/mm3 (150-450); RBC Distribution Width CV 13.1 % (11.6-14.6); RBC Distribution Width SD 44.3 fl (35.1-43.9); Red Blood Count 4.77 M/mm3 (4.6-6.2); Thyroid Stim Hormone (TSH) 3.57 uIU/mL (0.358-3.74); Very Low Density Lipoprotein 12 mg/dL (5-40); White Blood Count 5.9 K/mm3 (4.4-11.0)
[2020-08-02 13:11] LABS: Color, Urine Yellow (Yellow); Glucose, Dipstick Normal (Normal); Ketone-Dipstick Negative (Negative); Leukocyte Esterase-Dipstick Negative /ul (Negative); Nitrite-Dipstick Negative (Negative); Occult Blood-Urine Negative /ul (Negative); Protein-Dipstick Negative (Negative); Urine Bilirubin Dipstick Negative (Negative); Urine Clarity Clear (Clear); Urine Urobilinogen Normal (Normal)
== END ==
PROVIDERS: PCP Family Medicine; Referring Provider Family Medicine; Visit Provider Family Medicine
DX: R07.9 Chest pain, unspecified (principal); R03.0 Elevated blood-pressure reading, without diagnosis of hypertension; E03.9 Hypothyroidism, unspecified
CPT/HCPCS: 71046; 80053; 80061; 81001; 84443; 84484; 85025

== ENCOUNTER → 2020-08-03 07:10 | Outpatient (CLI) | payer MEDICARE, SELFPAY ==
--- NOTE | 2020-08-03 07:13 | ECHOD_ITS ---
Version 2 Reason For Study: SOB Procedure This was a 2D Doppler, Color Flow transthoracic echocardiogram. Exam performed in department. Left Ventricle Normal LV size. Left ventricular systolic function is normal. The estimated ejection fraction is 60 %. Stage 1 diastolic dysfunction. No regional wall motion abnormalities noted. Right Ventricle Normal RV size. Normal systolic function. Atria Normal left atrium. Normal right atrium. Mitral Valve Normal mitral valve. Mild (1+) eccentric mitral valve insufficiency. Tricuspid Valve Normal tricuspid valve. Mild (1+) tricuspid valve insufficiency. Pulmonary artery systolic pressure is 38 mmHg. Aortic Valve Normal aortic valve. Trisinus/trileaflet aortic valve. Pulmonic Valve Normal pulmonic valve. Great Vessels Normal aortic root. The pulmonary artery is normal size. Normal inferior vena cava. Pericardium/Pleural No pericardial effusion. Large hepatic cyst 8 x 8cm. MMode/2D Measurements & Calculations LVIDd: 4.2 cm IVSd: 1.1 cm Ao root diam: 4.0 cm LVIDs: 2.9 cm LVPWd: 1.1 cm RVDd: 3.3 cm FS: 30.4 % LAV(MOD-bp): 58.9 ml LA A4 area: 18.4 cm2 LA dimension(2D): 4.3 cm LAV(MOD-bp) Indexed: 30.1 ml/m2 LAV(MOD-sp2): 61.7 ml LAV(MOD-sp4): 50.9 ml RA A4 area: 17.1 cm2 Time Measurements MV dec time: 0.17 sec Doppler Measurements & Calculations MV E max osorio: 44.7 cm/sec Lat Peak E' Osorio: 7.4 cm/sec Med Peak E' Osorio: 5.7 cm/sec MV A max osorio: 71.9 cm/sec E/E' lat: 6.0 E/E' med: 7.9 MV E/A: 0.62 Ao V2 max: 106.6 cm/sec LV V1 max: 83.5 cm/sec PA V2 max: 101.9 cm/sec Ao max P.6 mmHg LV V1 max P.8 mmHg PI end-d osorio: 88.8 cm/sec TR max osorio: 294.5 cm/sec TR max P.7 mmHg Interpretation Summary Normal LV size. Left ventricular systolic function is normal. The estimated ejection fraction is 60 %. Stage 1 diastolic dysfunction. Pulmonary artery systolic pressure is 38 mmHg. Ordering Physician: Mele Monroe Referring Physician: Mele Monroe Performed By: Smitha Coker RDCS, RVT
--- NOTE | 2020-08-03 16:33 | STRESSREP ---
Stress Test Report Exercise myocardial perfusion protocol. 75-year-old man with a history of chest pain. Medications thyroxine and finasteride. Stress protocol: Resting EKG demonstrates sinus rhythm with a rate of 65 bpm normal intervals are noted resting blood pressure 148/84 mmHg. The patient exercised according to regular Munir protocol for a total duration of 9 minutes completing stage III of the Munir protocol. The maximum heart rate attained was 148 bpm which is 100% of max impacted heart rate the maximum workload was 10.1 metabolic equivalents. The patient maintained sinus rhythm throughout the recording. At rest there were no ST or T wave changes noted suggest ischemia at peak exercise upsloping ST changes only were noted we did not meet the criteria for ischemia. The test was terminated due to target heart rate being achieved and fatigue. Myocardial perfusion protocol. 11.1 mCi of technetium 99m sestamibi was injected. The patient exercised according to regular Munir protocol for 9 minutes and at peak exercise 33.3 mCi of technetium 99m sestamibi was injected. Stress and rest images were reconstructed and compared in the short axis vertical long horizontal long axis. Gated images were also obtained Perfusion SPECT analysis: Review of the stress images demonstrate normal uptake of tracer noted in all areas of the myocardium the resting images similar demonstrate normal uptake of tracer noted in all areas of the myocardium. No areas of reversibility are noted suggest ischemia. Gated SPECT analysis: The gated ejection fraction is noted to be 64%. Conclusion: Normal exercise myocardial perfusion stress test at a high workload. Preserved ejection fraction. Good functional aerobic capacity.
== END ==
PROVIDERS: PCP Family Medicine; Referring Provider Family Medicine; Visit Provider Family Medicine
DX: R06.02 Shortness of breath (principal); R07.9 Chest pain, unspecified
CPT/HCPCS: 78452; 93017; 93306; A9500; A4216

== ENCOUNTER → 2020-08-04 15:33 | Outpatient (CLI) | payer MEDICARE, SELFPAY | PROVIDERS: PCP Family Medicine; Visit Provider Family Medicine | DX: B34.9 Viral infection, unspecified (principal) | CPT/HCPCS: 87635; U0005; U0003 ==

== ENCOUNTER → 2020-10-20 07:58 | Outpatient (CLI) | payer MEDICARE, SELFPAY ==
[2020-09-21 15:07] VITALS: BMI 27.7
--- NOTE | 2020-10-21 07:21 | PFT ---
INTRODUCTION: The patient is a 75-year-old male that presents for pulmonary function studies secondary to a diagnosis of dyspnea on exertion. Respiratory therapy reports good patient effort. Bronchodilators were used during testing. INTERPRETATION: Forced expiration spirometry demonstrates no evidence of a large airways obstructive ventilatory defect. There was no significant response to aerosolized bronchodilators. Spirograms are of good quality and plateau normally. Body plethysmography was performed and revealed diffusely elevated lung volumes, likely spurious in nature. Diffusing capacity by single breath CO was within normal limits. IMPRESSION: Grossly normal pulmonary function studies.
== END ==
PROVIDERS: PCP Family Medicine; Referring Provider Internal Medicine Cardiovascular Disease; Visit Provider Internal Medicine Cardiovascular Disease
DX: R06.00 Dyspnea, unspecified (principal)
CPT/HCPCS: 94060; 94726; 94729

== ENCOUNTER → 2020-11-24 14:29 | Outpatient (CLI) | payer MEDICARE, SELFPAY ==
[2020-11-06 10:04] VITALS: BMI 25.5
--- NOTE | 2020-11-24 14:34 | CT_ITS ---
STUDY: CARDIAC CALCIUM SCORING - CT CHEST REASON FOR EXAM: Male, 75 years old. Chest pain. RADIATION DOSAGE (If Supplied By Facility): CTDIvol = ( 25.21 ) mGy, DLP = ( 1308.86 ) mGycm TECHNIQUE: Axial non-enhanced images were acquired through the heart for the sole purpose of measuring coronary artery calcium. Individualized dose optimization techniques were used for this CT. COMPARISON: None. FINDINGS: This portion of the report is being generated solely for the evaluation of noncoronary artery structures which have been assessed on plain another report. Left Main Coronary Artery: The visualized lungs are well expanded and free of infiltrate or mass. There is no pleural abnormality. Heart is normal size. There are coronary artery calcifications. Nonspecific subcentimeter mediastinal lymphadenopathy. Normal berhane. Normal pulmonary arteries. Normal thoracic aorta. Degenerative changes of the thoracic spine. There are large cysts within the liver. The upper abdomen is otherwise unremarkable. CT/Limited Chest CT w/CCTA IMPRESSION: 1. No acute cardiopulmonary disease. 2. Multiple hepatic cysts. Electronically Signed: Roberto Carlos Madrigal DO at 22:52 EDT Tel [phone], Service support ,
[2020-11-24 14:38] VITALS: BP 172/59; PULSE 53; RESP 16; O2SAT 100; BMI 26.6
[2020-11-24 14:49] VITALS: BP 174/59; PULSE 53
[2020-11-24] MEDS: Nitroglycerin SL (ED/IMG/CATH) 0.4 MG TABLET SL (14:49)
[2020-11-24 14:56] VITALS: BP 169/59; PULSE 68; RESP 14; O2SAT 99
--- NOTE | 2020-11-24 18:11 | CA.SCORE ---
Calcium Scoring Date of Study:: 11/24/20 Coronary Calcium Scoring: High-resolution Computed Tomographic imaging of the chest was performed on 11-24-2020, with particular attention paid to the coronary arteries. Images from the examination were analyzed for the presence and extent of coronary artery calcification , using coronary calcium quantification software. The patient tolerated the procedure well and there were no complications. The results of the coronary calcification analysis are provided below. Findings Coronary Artery Left Main (LM): 15.1 Left Anterior Descending (LAD): 137 Left Circumflex (LCX): 9.54 Right Coronary Artery (RCA): 0 Total Agatston Score: 161.64 Percentile Ranking: According to prepublished reference tables between 25% and 50% of patients of the same gender/similar age had the same/lower scores Calcium Scoring Interpretation: 0 No identifiable atherosclerotic plaque. Very low cardiovascular disease risk. <5% chance of presence coronary artery disease A Negative Examination 1-10 Minimal Plaque burden. Significant coronary artery disease very unlikely. 11-100 Mild plaque burden. Likely mild or minimal coronary atherosclerosis. 101-400 Moderate plaque burden Moderate non-obstructive coronary artery disease highly likely. Over 400 Extensive plaque burden. High likelihood of at least one significant coronary stenosis (>50% diameter) Calcium Score: 101 - 400 Moderate non-obstructive coronary artery disease highly like Conclusion: Continue cardiovascular evaluation and care as deemed appropriate.
--- NOTE | 2020-11-24 18:13 | CCTA_ITS ---
CCTA w/Cont Coronary Arteries Technique: High-resolution Computed Tomographic imaging of the chest was performed on 11-24-2020, with particular attention paid to the coronary arteries. Images from the examination were analyzed for the presence and extent of coronary artery calcification , using coronary calcium quantification software. The patient t olerated the procedure well and there were no complications. The results of the coronary calcification analysis are provided below.? Technique: Noted for misregistration artifact LEFT MAIN CORONARY ARTERY: The left main coronary appears to be a large vessel giving rise to the left anterior descending and left circumflex coronary artery. It appears to have mild nonobstructive calcified plaque. LEFT ANTERIOR DESCENDING CORONARY ARTERY: The left anterior descending coronary artery appears to be a large vessel which demonstrates proximal mild to moderate nonobstructive calcified plaque. LEFT CIRCUMFLEX CORONARY ARTERY: The left circumflex coronary artery appears to be a large vessel which demonstrates a mid mild nonobstructive calcified plaque. RIGHT CORONARY ARTERY: The right coronary artery appears to be a large probable dominant vessel. There is the appearance of calcification near the ostia of the right coronary artery. A proximal moderate nonobstructive soft plaque cannot be excluded. THORACIC AORTA: The thoracic aorta demonstrates calcification in the aortic root near the ostium of the right coronary artery as well as calcification of the descending thoracic aorta. PULMONARY ARTERY: The pulmonary artery with respect to the main pulmonary artery and the proximal portions of the right and left pulmonary artery appear to be patent with no obvious angiographic filling defect. LEFT ATRIUM/APPENDAGE: The left atrium/appendage appears to be patent with no obvious angiographic filling defect. MITRAL VALVE: The mitral valve appears to be bileaflet. AORTIC VALVE: The aortic valve appears to be trileaflet. LEFT VENTRICLE: The left ventricle demonstrates grossly normal left ventricular size, wall motion and systolic function. The reported LVEF is 59%. CORONARY CALCIUM SCORE: The coronary calcium score is 161 which based upon prepublished reference tables is compatible with moderate plaque burden with moderate nonobstructive coronary artery disease being highly likely.
== END ==
PROVIDERS: PCP Family Medicine; Referring Provider Nurse Practitioner Family; Visit Provider Nurse Practitioner Family
DX: R07.2 Precordial pain (principal); I47.2 Ventricular tachycardia; R00.2 Palpitations; E78.00 Pure hypercholesterolemia, unspecified; R07.9 Chest pain, unspecified
CPT/HCPCS: 75571; 75574; 76380; Q9967

== ENCOUNTER → 2020-12-18 15:34 | Outpatient (CLI) | payer MEDICARE, SELFPAY ==
[2020-11-24 14:38] VITALS: BMI 26.6
[2020-12-18 16:14] LABS: Hematocrit 40.2 % (40-54); Hemoglobin 13.4 g/dL (13.0-16.5); Mean Corp Hgb Conc 33.3 g/dL (32-36); Mean Corpuscular Volume 93.1 fL (80-94); Mean Platelet Vol. 11.3 fl (6.2-12.0); Platelet Count 154 K/mm3 (150-450); RBC Distribution Width CV 14.3 % (11.6-14.6); Red Blood Count 4.32 M/mm3 (4.6-6.2); White Blood Count 6.3 K/mm3 (4.4-11.0)
[2020-12-18 16:29] LABS: International Normalized Ratio 1.1; Prothrombin Time (Protime)PT. 13.1 SECONDS (11.7-14.9)
[2020-12-18 16:30] LABS: Partial Thromboplast Time 27.8 Seconds (24.1-36.2)
[2020-12-18 16:42] LABS: Anion Gap 7 (5-15); BUN 13 mg/dL (7-18); BUN/Creat Ratio 12.9 RATIO (10-20); Calcium,Total 9.1 mg/dL (8.5-10.1); Chloride 109 mmol/L (98-107); Creatinine, Serum 1.01 mg/dL (0.70-1.30); EST Glomerular Filtration Rate 77 mL/min (>60); Est Glom Filt Rate - Afr Amer 93 mL/min (>60); Glucose 98 mg/dL (74-106); Potassium 3.9 mmol/L (3.5-5.1); Sodium Level 142 mmol/L (136-145)
== END ==
PROVIDERS: PCP Family Medicine; Visit Provider Internal Medicine Cardiovascular Disease
DX: R06.02 Shortness of breath (principal); R93.1 Abnormal findings on diagnostic imaging of heart and coronary circulation; R94.39 Abnormal result of other cardiovascular function study; I47.2 Ventricular tachycardia; R07.2 Precordial pain; R00.2 Palpitations; E78.00 Pure hypercholesterolemia, unspecified
CPT/HCPCS: 36415; 80048; 85027; 85610; 85730

== ENCOUNTER 2020-12-26 12:43 | Observation (INO) | payer MEDICARE, SELFPAY ==
[2020-09-21 15:07] VITALS: BMI 27.7
[2020-10-31 16:04] LABS: Absolute Lymphocyte Count 1.14 X10^3/uL (0.83-4.51); Basophil# 0.05 X10^3/uL; Basophil% 0.9 % (0-1); Eosinophil# 0.06 X10^3/uL; Eosinophils% 1.1 % (0-5); Hematocrit 41.9 % (40-54); Lymphocyte # 1.14 X10^3/ul (4.0); Mean Corp Hgb Conc 33.4 g/dL (32-36); Mean Corpuscular Hgb 30.9 pg (27.0-32.0); Mean Corpuscular Volume 92.5 fL (80-94); Mean Platelet Vol. 10.8 fl (6.2-12.0); NRBC Flagged by Analyzer 0 % (0-5); Neutrophil # 4.04 X10^3/uL (2.7-7.7); Neutrophil % 70.8 % (47-70); Platelet Count 183 K/mm3 (150-450); RBC Distribution Width CV 14.5 % (11.6-14.6); RBC Distribution Width SD 48.7 fl (35.1-43.9); Red Blood Count 4.53 M/mm3 (4.6-6.2); White Blood Count 5.7 K/mm3 (4.4-11.0)
[2020-10-31 16:13] LABS: International Normalized Ratio 1.1
[2020-10-31 16:29] LABS: Anion Gap 5 (5-15); BUN 11 mg/dL (7-18); Chloride 110 mmol/L (98-107); Creatinine, Serum 0.92 mg/dL (0.70-1.30); EST Glomerular Filtration Rate 86 mL/min (>60); Est Glom Filt Rate - Afr Amer 104 mL/min (>60); Glucose 92 mg/dL (74-106); Sodium Level 141 mmol/L (136-145)
[2020-11-06 10:04] VITALS: BMI 25.5
--- NOTE | 2020-11-07 08:00 | HP_ITS ---
HPI HPI History of Present Illness Surgical H&P: Yes Details: This is a 75-year-old white male who presents for evaluation of a combination of palpitations, chest discomfort, and shortness of breath/dyspnea on exertion. He states prior to July this year he was feeling as if he was misfire with respect to his heartbeats. He would notice this when he sits down to work with his computer. He underwent echocardiogram on 08/03/2020 that showed ejection fraction of 60%. He underwent stress test on 08/03/2020 that was negative for ischemia at a high workload. His 30-day event monitor revealed an 8 beat run of ventricular tachycardia. He continues with chest pain and SOB. His chest pain is noted over the last two days. There is no specific relieving or aggravating factors. This does not get worse with activity. His shortness of breath is mostly when going up the steps and improves with rest. He denies arm, jaw, or neck discomfort. His exercise tolerance is stable. He denies symptoms of palpitations, dizziness, near syncope, or syncopal episodes. He denies edema or claudication issues. He denies orthopnea, PND, fever, chills, blood in urine, blood in stool, myalgia, or unexplainable fatigue. Intake Vital Signs 10/31/20 Height 5 ft 8 in 10/31/20 Weight: 168 lb 10/31/20 BMI 25.5 10/31/20 BP 147/77 H 10/31/20 Blood Pressure Location Lt brachial 10/31/20 Position Sitting 10/31/20 Respiration 18 10/31/20 Pulse 64 10/31/20 Pulse Source Monitor 10/31/20 Pulse Oximetry (%) 97 Intake Visit Reasons: update [employer] Required: No Is patient in pain?: No Allergies No Known Allergies Allergy (Verified 10/31/20 14:03) Medications levothyroxine 50 mcg tablet 50 mcg PO DAILY 09/19/20 [History Confirmed 10/31/20] multivitamin 1 tab PO DAILY 09/19/20 [History Confirmed 10/31/20] rosuvastatin 10 mg tablet 10 mg PO DAILY 09/19/20 [History Confirmed 10/31/20] amlodipine 5 mg tablet 5 mg PO DAILY 09/21/20 [History Confirmed 10/31/20] finasteride 1 mg tablet 1 mg PO DAILY tab 09/21/20 [History Confirmed 10/31/20] aspirin 81 mg tablet,delayed release 81 mg PO DAILY #30 tablet 10/31/20 [Rx Confirmed 10/31/20] clopidogrel 75 mg tablet 75 mg PO QDAY #30 tablet 10/31/20 [Rx Confirmed 10/31/20] [facility] Medical History (Updated 10/25/20 @ 12:47 by Cortney Pires) Palpitations (Acute) Pure hypercholesterolemia (Chronic) Hypothyroidism (Chronic) Surgical History History of cholecystectomy (Resolved) History of tonsillectomy and adenoidectomy (Resolved) History of vasectomy (Resolved) Family History Father Heart disease Mother Heart disease Social History (Updated 10/31/20 @ 14:52 by Mele Martinez [employer], [employer]-C) Smoking Status: Never smoker alcohol intake: never substance use type: does not use caffeine: Yes Type: carbonated beverages Number of servings: 1, coffee Number of servings: 1 ROS Const Const: Negative for fatigue, weakness, body ache, fever(s) or chills ENT ENT: Negative for dizziness Cardio Chest Pain: Yes Palpitations: No Edema: None Muscle aches with walking: None Resp Respiratory: Positive for SOB with activity; negative for SOB at rest, SOB orthopnea\SOB lying down or paroxysmal nocturnal dyspnea GI GI: Negative nausea, vomiting blood/hematemesis, bright, red blood in stools or black,tarry stools : Negative for hematuria or frequent nighttime urination/ nocturia Musc Musc: Negative for muscle aches/ myalgia Skin Skin: Negative non-healing lesions or rash Neuro Neuro: Positive for lightheadedness (position change); negative for dizziness, near syncope, syncope, orthostatic symptoms or weakness Endo Endo: Negative for fatigue Allergy Allergy/Immunology: Negative for rash Cardiology Exam Const Appearance: cooperative, healthy appearing, comfortable and no acute distress Nutritional Appearance: well nourished and overweight Orientation: alert, awake and oriented x3 Head Head: normal to inspection Ears: hearing grossly normal bilaterally Nose: external nose normal Face and Sinus: face symmetric Mouth: oral mucosae normal Eyes General: appearance normal, both eyes and all related structures Eyelids: eyelids normal EOM: EOM intact bilaterally Neck Neck: normal visual inspection and no JVD Carotids: normal carotid upstroke Chest Chest inspection: normal inspection of the chest, symmetric chest movement and normal respiratory effort; negative cough Auscultation: Bilateral: Clear to Auscultation Cardio Rate: regular rate Rhythm: regular rhythm Heart sounds: S1 normal and S2 normal; negative rub, gallop or murmur GI GI: normal to inspection Neuro General: alert, awake, oriented x3 and CN's II-XI intact bilaterally Skin Skin: no rashes or lesions noted Extremities Pulses: Normal: Right Posterior Tibial Pulse, Left Posterior Tibial Pulse, Right Radial Pulse, Left Radial Pulse Lower Extremity Edema: None: Bilateral Psych Psychological: normal affect Assessment & Plan 1. Paroxysmal ventricular tachycardia I47.2 Plan This was noted during most recent 30-day event monitor. His most recent laboratory tests were within satisfactory range including thyroid. He will proceed with a heart catheterization to assess further. Based on results, further recommendation be made. 2. Precordial pain R07.2 Plan This is an ongoing concern. His most recent stress test in July 2020 was negative for ischemia. Given the ongoing symptom in conjunction with the findings such as ventricular tachycardia, he will proceed with heart catheterization to assess further. Based on results, further recommendation be made. Due to undergoing heart catheterization, he was asked to begin aspirin and Plavix today. He will proceed with laboratory testing prior to such procedure. 3. Palpitations R00.2 Plan This appears stable. We can can consider beta-delano therapy based on long- term response. His EKG today in office shows normal sinus rhythm at a rate of 66 bpm, W[place] interval 144, QTc 400, and QRS [address] or T wave changes. Orders Orders: 12 Lead EKG performed by [facility] Today 4. Pure hypercholesterolemia E78.00 Plan He will continue current statin medication. Plan Detail Other Medications New: aspirin (Adult Low Dose Aspirin) 81 mg PO DAILY 30 tabs 11RF clopidogrel (Plavix) 75 mg PO QDAY 30 tabs 11RF Additional Comments Thank you for allowing us to participate in the patients plan of care, if you have any questions please do not hesitate to call. This note was generated using a voice recognition system and there may be incorrect words, spelling or punctuation that were not noted when reviewing the office note prior to saving. Follow Up Keep as is Coding Level of Care Code Off vis,est,level 3 Diagnoses Paroxysmal ventricular tachycardia I47.2 Precordial pain R07.2 ??Chest pain type: precordial pain Palpitations R00.2 Pure hypercholesterolemia E78.00 Coding Level of Care Code Off vis,est,level 3 Diagnoses Paroxysmal ventricular tachycardia I47.2 Precordial pain R07.2 ??Chest pain type: precordial pain Palpitations R00.2 Pure hypercholesterolemia E78.00 Supplemental Info Supplemental Information Echocardiogram: 08-03-2020 Interpretation Summary Normal LV size. Left ventricular systolic function is normal. The estimated ejection fraction is 60 %. Stage 1 diastolic dysfunction. Pulmonary artery systolic pressure is 38 mmHg. Stress Test Report: 08-03-2020 Exercise myocardial perfusion protocol. 75-year-old man with a history of chest pain. Medications thyroxine and finasteride. Stress protocol: Resting EKG demonstrates sinus rhythm with a rate of 65 bpm normal intervals are noted resting blood pressure 148/84 mmHg. The patient exercised according to regular Munir protocol for a total duration of 9 minutes completing stage III of the Munir protocol. The maximum heart rate attained was 148 bpm which is 100% of max impacted heart rate the maximum workload was 10.1 metabolic equivalents. The patient maintained sinus rhythm throughout the recording. At rest there were no ST or T wave changes noted suggest ischemia at peak exercise upsloping ST changes only were noted we did not meet the criteria for ischemia. The test was terminated due to target heart rate being achieved and fatigue. Myocardial perfusion protocol. 11.1 mCi of technetium 99m sestamibi was injected. The patient exercised according to regular Munir protocol for 9 minutes and at peak exercise 33.3 mCi of technetium 99m sestamibi was injected. Stress and rest images were reconstructed and compared in the short axis vertical long horizontal long axis. Gated images were also obtained Perfusion SPECT analysis: Review of the stress images demonstrate normal uptake of tracer noted in all areas of the myocardium the resting images similar demonstrate normal uptake of tracer noted in all areas of the myocardium. No areas of reversibility are noted suggest ischemia. Gated SPECT analysis: The gated ejection fraction is noted to be 64%. Conclusion: Normal exercise myocardial perfusion stress test at a high workload. Preserved ejection fraction. Good functional aerobic capacity. Labs LDL Cholesterol 71 mg/dL (0-130) 08/02/20 HDL Cholesterol 55 mg/dL (40-) 08/02/20 Triglycerides 58 mg/dL (-199) 08/02/20 VLDL Cholesterol 12 mg/dL (5-40) 08/02/20 Diagnostics Electrocardiogram 10/31/20 Echocardiogram 08/03/20 Stress Test Nuclear Medicine 08/03/20 Stress Test 08/03/20 Chest X-Ray 08/02/20 Pulmonary Pulmonary Function Test 10/21/20
[2020-12-18 15:51] VITALS: BMI 24.3
[2020-12-26] VITALS (9 sets, daily range): BP systolic 121–139; BP diastolic 39–51; PULSE 53–60; RESP 12–17; TEMP 36.2–37.1; O2SAT 98–100; BMI 25.2
--- NOTE | 2020-12-26 08:09 | HP.PCM_ITS ---
History and Physical Date of Admission: 12/26/20 [facility] [address], [place] [phone] OFFICE VISITDate of Service: 12/18/20 MR#:[id number]:[id number]: ANANDA WALLER ARep #[id number]:[id number] Provider: LOURDSE Richard RoofAge/Sex: 75/M [facility] HPI History of Present Illness Surgical H&P: Yes Details: This is a 75-year-old white male who presents for evaluation of a combination of palpitations, chest discomfort, and shortness of breath/dyspnea on exertion. He states prior to July this year he was feeling as if he was misfire with respect to his heartbeats. He would notice this when he sits down to work with his computer. He underwent echocardiogram on 08/03/2020 that showed ejection fraction of 60%. He underwent stress test on 08/03/2020 that was negative for ischemia at a high workload. His 30-day event monitor revealed an 8 beat run of ventricular tachycardia. He underwent CT scan of coronary arteries on 11/24/2020. This showed a calcium score of 161 (between 25% and 50%). This was most noted in his LAD territory. Based on his CT scan report nonobstructive soft plaque in the right coronary artery could not be excluded. Thus, based on previous symptoms, 30-day event monitor, and CT scan results, he will proceed with heart catheterization to define coronary artery disease. He does acknowledge improvement in chest pain, and shortness of breath since last office visit. He states he has engaged in healthy lifestyle most notably weight loss. He denies arm, jaw, or neck discomfort. His exercise tolerance is stable. He denies symptoms of palpitations, dizziness, near syncope, or syncopal episodes. He denies edema or claudication issues. He denies orthopnea, PND, fever, chills, blood in urine, blood in stool, or myalgia. He does acknowledge ongoing fatigue. Thus, he has changed his metoprolol to evening, which has helped. He notes low blood pressure at home at 114/69, 93/63, 95/60, and 104/54. Intake Vital Signs 12/18/20 15:51 Height 5 ft 8 in Weight: 160 lb BMI 24.3 BP 140/87 H Blood Pressure Location Lt brachial Position Sitting Respiration 18 Pulse 52 L Pulse Source Monitor Pulse Oximetry (%) 97 Intake Visit Reasons: update H [employer] P [employer] Finisher Required: No Is patient in pain?: No Allergies No Known Allergies Allergy (Verified 12/18/20 15:49) PFSH Medical History (Updated 11/28/20 @ 10:35 by Cortney Pires) Hypothyroidism Palpitations Pure hypercholesterolemia Surgical History History of cholecystectomy History of tonsillectomy and adenoidectomy History of vasectomy Family History Father Heart disease Mother Heart disease Social History (Updated 10/31/20 @ 14:[address] [employer], [facility]-C) Smoking Status: Never smoker alcohol intake: never substance use type: does not use caffeine: Yes Type: carbonated beverages Number of servings: 1 and coffee Number of servings: 1 ROS Const Const: Negative for fatigue, weakness, body ache, fever(s) or chills ENT ENT: Negative for dizziness Cardio Chest Pain: No Palpitations: No Edema: None Muscle aches with walking: None Resp Respiratory: Negative for SOB with activity, SOB at rest, SOB orthopnea\SOB lying down or paroxysmal nocturnal dyspnea GI GI: Negative nausea, vomiting blood/hematemesis, bright, red blood in stools or black,tarry stools : Negative for hematuria or frequent nighttime urination/ nocturia Musc Musc: Negative for muscle aches/ myalgia Skin Skin: Negative non-healing lesions or rash Neuro Neuro: Negative for dizziness, lightheadedness, near syncope, syncope, orthostatic symptoms or weakness Endo Endo: Negative for fatigue Allergy Allergy/Immunology: Negative for rash Cardiology Exam Const Appearance: cooperative, healthy appearing, comfortable and no acute distress Nutritional Appearance: average body habitus and well nourished Orientation: alert, awake and oriented x3 Head Head: normal to inspection Ears: hearing grossly normal bilaterally Nose: external nose normal Face and Sinus: face symmetric Mouth: oral mucosae normal Eyes General: appearance normal, both eyes and all related structures Eyelids: eyelids normal EOM: EOM intact bilaterally Neck Neck: normal visual inspection and no JVD Carotids: normal carotid upstroke Chest Chest inspection: normal inspection of the chest, symmetric chest movement and normal respiratory effort; Negative cough Auscultation: Bilateral: Clear to Auscultation Cardio Rate: regular rate Rhythm: regular rhythm Heart sounds: S1 normal and S2 normal; Negative rub, gallop or murmur GI GI: normal to inspection Neuro General: patient alert, patient awake, patient oriented x3 and CN's II-XI intact bilaterally Skin Skin: no rashes or lesions noted Extremities Pulses: Normal: Right Posterior Tibial Pulse, Left Posterior Tibial Pulse, Right Radial Pulse and Left Radial Pulse Lower Extremity Edema: None: Bilateral Psych Psychological: normal affect Assessment and Plan Assessment and Plan (1) Paroxysmal ventricular tachycardia: Status: Acute Korin - Mele Martinez RO[employer], [employer]-C: His EKG today in office shows sinus bradycardia rate of 53 beats minute, SD interval 142, QTc 422, and QRS 104. He denies any symptomatic recurrence. He will continue current low-dose beta-delano. Depending on overall progress and work-up, will consider reducing dosage on account of lower blood pressure and fatigue as well as heart catheterization results. (2) Abnormal cardiac CT angiography: Status: Acute Korin - Mele Martinez NP, RO[employer]-C: His cardiac CT angiography scan showed moderate plaque burden with moderate nonobstructive coronary artery disease highly likely. The patient will proceed with heart catheterization based on previous test results including 30-day event monitors and symptoms. Based on results, further recommendation will be made. This may include input regarding long-term beta-delano and Plavix therapy. (3) Pure hypercholesterolemia: Status: Chronic Plan - Mele Martinez NP, [facility]-C: He will continue risk factor and lifestyle modification. He will continue Crestor 10 mg p.o. nightly. (4) Chest pain: Status: Acute Qualifiers: Chest pain type: precordial pain Qualified Code(s): R07.2 - Precordial pain Korin Martinez NP, [facility]-C: This appears to be improved since last office visit. He will continue current beta-delano therapy. He will proceed with heart catheterization to assess further. (5) Palpitations: Status: Acute Orders: Orders: 12 Lead EKG performed by BASIL 12/18/20 Korin Martinez NP, [facility] [employer]-C: This too appears to be improved since last office visit. He will continue current beta-delano therapy. Plan Details Follow Up: 10 Months (PFM) COVID (Procedure Consent) Procedure Criteria Procedure Criteria: Yes Elective The surgeon/proceduralist and patient have discussed in detail the risk of exposure to and/or potential harm posed by the COVID-19 virus with having a surgery/procedure at this time versus the risk of delaying the surgery/procedure. It is not possible to know either the risk of delaying the surgery or procedure or chance of getting an infection with perfect accuracy, but a joint decision was made between the patient and the surgeon/proceduralist to proceed at this time with the scheduled surgery/procedure as indicated on the consent form. Coding Level of Care Code Off vis,est,level 3 Diagnoses Paroxysmal ventricular tachycardia I47.[address] angiography R93.1 Pure hypercholesterolemia E78.00 Chest pain R07.2 Chest pain type: precordial pain Palpitations R00.2 Coding Level of Care Code Off vis,est,level 3 Diagnoses Paroxysmal ventricular tachycardia I47.[address] angiography R93.1 Pure hypercholesterolemia E78.00 Chest pain R07.2 Chest pain type: precordial pain Palpitations R00.2 Supplemental Info Supplemental Information Echocardiogram: 08-03-2020 Interpretation Summary Normal LV size. Left ventricular systolic function is normal. The estimated ejection fraction is 60 %. Stage 1 diastolic dysfunction. Pulmonary artery systolic pressure is 38 mmHg. Stress Test Report: 08-03-2020 Exercise myocardial perfusion protocol. 75-year-old man with a history of chest pain. Medications thyroxine and finasteride. Stress protocol: Resting EKG demonstrates sinus rhythm with a rate of 65 bpm normal intervals are noted resting blood pressure 148/84 mmHg. The patient exercised according to regular Munir protocol for a total duration of 9 minutes completing stage III of the Munir protocol. The maximum heart rate attained was 148 bpm which is 100% of max impacted heart rate the maximum workload was 10.1 metabolic equivalents. The patient maintained sinus rhythm throughout the recording. At rest there were no ST or T wave changes noted suggest ischemia at peak exercise upsloping ST changes only were noted we did not meet the criteria for ischemia. The test was terminated due to target heart rate being achieved and fatigue. Myocardial perfusion protocol. 11.1 mCi of technetium 99m sestamibi was injected. The patient exercised according to regular Munir protocol for 9 minutes and at peak exercise 33.3 mCi of technetium 99m sestamibi was injected. Stress and rest images were reconstructed and compared in the short axis vertical long horizontal long axis. Gated images were also obtained Perfusion SPECT analysis: Review of the stress images demonstrate normal uptake of tracer noted in all areas of the myocardium the resting images similar demonstrate normal uptake of tracer noted in all areas of the myocardium. No areas of reversibility are noted suggest ischemia. Gated SPECT analysis: The gated ejection fraction is noted to be 64%. Conclusion: Normal exercise myocardial perfusion stress test at a high workload. Preserved ejection fraction. Good functional aerobic capacity. CCTA w/Cont Coronary Arteries: 11/24/2020 Technique: Noted for misregistration artifact LEFT MAIN CORONARY ARTERY: The left main coronary appears to be a large vessel giving rise to the left anterior descending and left circumflex coronary artery. It appears to have mild nonobstructive calcified plaque. LEFT ANTERIOR DESCENDING CORONARY ARTERY: The left anterior descending coronary artery appears to be a large vessel which demonstrates proximal mild to moderate nonobstructive calcified plaque. LEFT CIRCUMFLEX CORONARY ARTERY: The left circumflex coronary artery appears to be a large vessel which demonstrates a mid mild nonobstructive calcified plaque. RIGHT CORONARY ARTERY: The right coronary artery appears to be a large probable dominant vessel. There is the appearance of calcification near the ostia of the right coronary artery. A proximal moderate nonobstructive soft plaque cannot be excluded. THORACIC AORTA: The thoracic aorta demonstrates calcification in the aortic root near the ostium of the right coronary artery as well as calcification of the descending thoracic aorta. PULMONARY ARTERY: The pulmonary artery with respect to the main pulmonary artery and the proximal portions of the right and left pulmonary artery appear to be patent with no obvious angiographic filling defect. LEFT ATRIUM/APPENDAGE: The left atrium/appendage appears to be patent with no obvious angiographic filling defect. MITRAL VALVE: The mitral valve appears to be bileaflet. AORTIC VALVE: The aortic valve appears to be trileaflet. LEFT VENTRICLE: The left ventricle demonstrates grossly normal left ventricular size, wall motion and systolic function. The reported LVEF is 59%. CORONARY CALCIUM SCORE: The coronary calcium score is 161 which based upon prepublished reference tables is compatible with moderate plaque burden with moderate nonobstructive coronary artery disease being highly likely. Labs: LDL Cholesterol 71 mg/dL (0-130) HDL Cholesterol 55 mg/dL (40-) Triglycerides 58 mg/dL (-199) VLDL Cholesterol 12 mg/dL (5-40) Diagnostics: Electrocardiogram Echocardiogram Stress Test NM Stress Test Chest X-Ray Coronary Angiography CT Pulmonary: Pulmonary Function Test 12/20/20 0837<Electronically signed by Mele Martinez NP RO[facility] [employer]-C>Date Mele Martinez NP RO[facility] [employer]-C Cosigner Signature:Date (if applicable) CC: Dr. Mele Monroe MD ~ The surgeon/proceduralist and patient have discussed in detail the risk of exposure to and/or potential harm posed by the COVID-19 virus with having a surgery/procedure at this time versus the risk of delaying the surgery/procedure. It is not possible to know either the risk of delaying the surgery or procedure or chance of getting an infection with perfect accuracy, but a joint decision was made between the patient and the surgeon/proceduralist to proceed at this time with the scheduled surgery/procedure as indicated on the consent form. I have re-examined the patient. There are no clinical changes since date of exam.
--- NOTE | 2020-12-26 13:10 | CL.D_ITS ---
Patient Name: ANANDA WALLER Study Date: 12/26/2020 Performing: Yung Bethea MD Ht: 68.11 inches 173 cm : 1945 Wt: 167.55 lbs 76 kg Age: 75 Gender: male BSA: 1.9 PROCEDURE(S) PERFORMED SF02-CEO/COR/LV TN27-ZDO W OR WO PTCA, SINGLE CORONARY ARTERY CLINICAL PROFILE AND INDICATIONS Indications: Cardiac Arrythmia, Other: abnormal coronary artery CTA Heart Failure: None Stress/Imaging Date: 08/03/2020tress Test with SPECT MPI: Negative Angina Classification Anginal Classification w/in 2 Weeks: Anginal Equivalent Dyspnea CAD Presentations: Other: palpitations; chest pain; shortness of breath CONCLUSIONS Elevated Left Ventricular End Diastolic Pressure Normal LV size, wall motion,and systolic function LVEF: by LV gram 65 % Single vessel CAD of the LAD RECOMMENDATIONS Risk factor modification Medical therapy Interventional Cardiology consult: review / discuss the case for the need for additional catheter bas ed diagnostic evaluation / PCI DESCRIPTION OF PROCEDURE The patient arrived to the procedure lab. The risks and benefits of the procedure as well as a full d escription of our services here and current unavailability of surgical backup were fully explained to the patient and/or their significant other prior to the catheterization. The Timeout was completed, verifying the correct patient and procedure. The patient's procedural site was prepped and draped in the usual fashion. Local anesthetic was given subcutaneously to right radial region with Lidocaine 2% per Dr. Arnold. Using a modified Seldinger technique, arterial access was obtained via the right r adial artery, a 6Fr sheath was inserted. per Dr. Arnold Left Coronary Artery selective angiograph y was performed in multiple views using a 5 Fr. 4.0 Coleharbor catheter. Right Coronary Artery selective a ngiography was then performed in multiple views using a 5 Fr. 4.0 Coleharbor catheter. Left Ventriculograp hy was performed in KAUFMAN projection using a 5 Fr. Pigtail catheter. LV to AO pullback pressures were t hen recorded.The arterial sheath was pulled and a TR Band was applied for hemostasis CORONARY ANGIOGRAPHY DOMINANCE: Right Dominant LEFT HEART ASSESSMENT Left Ventricular Ejection Fraction: by LV Gram 65 % Normal LV wall motion Elevated Left Ventricular End Diastolic Pressure LVEDP: 32 mmHg LEFT ANTERIOR DESCENDING ARTERY: OSTIAL LAD: hazy: 25 - 50 % Stenosis PROX LAD: Mild calcification, 50 - 75 % Stenosis CIRCUMFLEX ARTERY: Angiographically normal RIGHT CORONARY ARTERY: Angiographically normal AORTIC ROOT: Angiographically normal COMPLICATIONS No Complications PROCEDURE MEDICATIONS Fentanyl 50 mcg IV Versed 1 mg IV Fentanyl 50 mcg IV Versed 1 mg IV Adenosine 21.6 mg IV @ 12/26/2020 12:24:16 Heparin given IA 12/26/2020 11:26:37 Heparin 3000 unit(s) IV 12/26/2020 12:14:56 Plavix 75 mg PO 12/26/2020 10:26:32 Verapamil 2.5mg, Ntg 100mcgs, 3000 units of Heparin given IA 12/26/2020 11:26:37 SUMMARY OF HEMODYNAMIC DATA Time AIR REST ECG 09:21:19 AO 153/81 (112) SA 11:28:24 LV 146/-6, 30 11:46:54 LV 147/-5, 32 11:47:00 LV 138/0, 32 11:47:54 LVp 138/-1, 31 11:47:58 AO 133/66 (93) 12:15:07 Signed By Yung Bethea MD On 12/26/2020 1:09:23 PM Yung Bethea MD
--- NOTE | 2020-12-26 14:14 | CRPHASE1_ITS ---
Patient Communication Former Patient:: Phase I PHII Cardiac Rehab Discussed with Patient:: Yes Guide to Cardiac Rehab Given to Patient:: Yes Cardiac Rehab Facility Choice List Given to Patient:: Yes Choice Program [facility] CR PHII:: Communication Given to CR Choice Program Other:: Communication Given to CR Film Or Videotape Editor:: Ulisses Arnold Refer Phase II Cardiac Rehab:: Yes Sessions:: 36 sessions - 3 days/wk, 12 weeks Cardiac Rehabilitation Info Cardiac Rehabilitation Program Information: Cardiac Rehabilitation is important for patients like you who are recovering from a heart problem. Cardiac rehabilitation programs are recognized as integral to the continued care of the patient with coronary heart disease. The cardiac rehabilitation program is designed to optimize a patient's physical, psychological, and social functioning. Health manager [employer] marketing work in cardiac rehabilitation programs and assist you with getting the treatments you need to get stronger and healthier - like exercise, healthy eating habits, and medications. Cardiac rehabilitation has been show to help people with heart problems live longer and have better life enjoyment than people who do not go to cardiac rehabilitation. Please contact the Cardiac Rehabilitation Program at [facility] at in two weeks if you have not heard from them.
--- NOTE | 2020-12-26 14:15 | CRPH1.INSTRU ---
General Education CAD and cardiac anatomy and function:: Patient communicates acknowledgment Explanation of diagnoses and procedures:: Patient communicates acknowledgment Sign/Symptoms of [place]:: Patient communicates acknowledgment Antiplatelet therapy: Patient communicates acknowledgment Smoking Patient Nicotine/Smoking Risk Factors Are:: Never smoked Dyslipidemia Patient Dyslipidemia Risk Factors Are:: Total Cholesterol, Triglycerides, HDL, LDL Recommendations Include:: Lipid profile provided Dyslipidemia Response Code:: Patient communicates acknowledgment Overweight/Obesity Patient Overweight/Obesity Risk Factors Are:: BMI Normal [18-25 & < 65 years old] Recommendations Include:: Weight loss of 5-10%, Reduced calorie diet, Exercise 5-7 times/week Overweight/Obesity:: Patient communicates acknowledgment Hypertension Recommendations Include:: Maintain BP <130/85, BP <130/80 if diabetic, DASH dietary guidelines, Decrease/maintain normal body weight, Moderation of ETOH Hypertension:: Patient communicates acknowledgment Diabetes Patient Diabetes Risk Factors Are:: No documented hx of diabetes Stress Patient Stress Risk Factors Are:: Patient denies stress as a risk factor
[2020-12-26] MEDS: 0.9% Normal Saline 1,000 ML 80 ML IV (16:16)
[2020-12-26] MEDS: CLARIFY ORDER NOTE (20:47)
[2020-12-26] MEDS: Atorvastatin Calcium 40 MG Tablet PO (22:15)
[2020-12-27 03:03] VITALS: PULSE 52
[2020-12-27 03:41] VITALS: BP 128/47; PULSE 53; RESP 18; TEMP 36.6; O2SAT 98
[2020-12-27 05:38] LABS: Absolute Lymphocyte Count 1.03 X10^3/uL (0.83-4.51); Absolute Neutrophil Count 4.6 X10^3/uL (2.0-7.7); Basophil# 0.04 X10^3/uL; Basophil% 0.6 % (0-1); Eosinophil# 0.14 X10^3/uL; Eosinophils% 2.2 % (0-5); Hematocrit 37.9 % (40-54); Hemoglobin 12.7 g/dL (13.0-16.5); Lymphocyte # 1.03 X10^3/ul (0.83-4.51); Mean Corp Hgb Conc 33.5 g/dL (32-36); Mean Corpuscular Hgb 31.8 pg (27.0-32.0); Mean Corpuscular Volume 94.8 fL (80-94); Mean Platelet Vol. 11.4 fl (6.2-12.0); Monocyte# 0.63 X10^3/uL; Monocyte% 9.8 % (0-10); NRBC Flagged by Analyzer 0 % (0-5); Neutrophil # 4.57 X10^3/uL (2.7-7.7); Neutrophil % 71.2 % (47-70); Platelet Count 124 K/mm3 (150-450); RBC Distribution Width CV 14.2 % (11.6-14.6); RBC Distribution Width SD 49.2 fl (35.1-43.9); White Blood Count 6.4 K/mm3 (4.4-11.0)
[2020-12-27] MEDS: Levothyroxine 50 MCG Tablet PO (05:56)
[2020-12-27 06:04] LABS: ALB/GLOB Ratio 1.2 RATIO (0.9-2.4); AST(SGOT) 19 U/L (15-37); Alanine Aminotransfer ALT/SGPT 30 U/L (16-61); Albumin, Serum 3.1 g/dL (3.2-5.0); Alkaline Phosphatase 51 U/L (45-117); Anion Gap 5 (5-15); BUN 16 mg/dL (7-18); BUN/Creat Ratio 15.8 RATIO (10-20); Calcium,Total 8.2 mg/dL (8.5-10.1); Chloride 113 mmol/L (98-107); Creatinine, Serum 1.01 mg/dL (0.70-1.30); EST Glomerular Filtration Rate 77 mL/min (>60); Est Glom Filt Rate - Afr Amer 93 mL/min (>60); Estimated Creatinine Clearance 63.02 ml/min; Globulin 2.6 g/dL (2.2-4.2); Glucose 103 mg/dL (74-106); Potassium 4.1 mmol/L (3.5-5.1); Protein, Total 5.7 g/dL (6.4-8.2); Sodium Level 142 mmol/L (136-145)
[2020-12-27 07:28] VITALS: PULSE 56
--- NOTE | 2020-12-27 09:20 | PCM.DC ---
Discharge Instructions Diet Discharge Diet: Low fat / Low cholesterol Activity Discharge Activity: May Not Drive (x 48 hours), May Shower (Today) and May Take a Tub Bath (in 7 days) May resume sexual activity in: 1-2 weeks Weight Bearing Status: - (avoid heavy exertional activity x 2 weeks) Dressing / Incision Call your doctor if your incision/area has: Continuous Slow Oozing, Sudden Increased Bleeding, Increased Pain/ Swelling, Increased Redness, Foul Smelling Discharge and Swelling at the incision site Call your doctor if you observe: Fever of 101 or Higher, Shortness of breath, Dizziness, Fainting spells, Chest pain and Increased palpitations (irregular heartbeat) Remove Dressing in: 1 day Cleanse incision/area with: Soap & Water Follow Up Care Please Follow Up With: Yung Bethea MD When: [place] to arrange an outpatient follow up appointment Test Results: Test results from this visit will be discussed in further detail at your follow-up appointment, if applicable. Discharge Plan Admission Admit Date/Time: 12/26/20 12:43 Primary Reason for Your Visit: Cardiac catheterization Attending Provider: Yung Bethea Primary Care Provider: Mele Monroe Instructions Patient Instructions: ED Chest Pain, Noncardiac Discharge Orders/Prescriptions Prescriptions: No Action finasteride 1 mg tablet 1 mg PO DAILY RF: 0 aspirin [Adult Low Dose Aspirin] 81 mg tablet,delayed release (DR/EC) 81 mg PO DAILY Qty: 30 RF: 11 rosuvastatin 10 mg tablet 10 mg PO DAILY RF: 0 multivitamin Tablet 1 tab PO DAILY RF: 0 levothyroxine 50 mcg tablet 50 mcg PO DAILY RF: 0 metoprolol succinate 25 mg tablet extended release 24 hr 25 mg PO DAILY Qty: 30 RF: 3 clopidogrel 75 mg tablet 75 mg PO DAILY RF: 0 Referrals / Follow Up: Mele Monroe MD [Primary Care Provider] - Yung Bethea MD [STAFF PHYSICIAN] - Disposition Disposition (needs filled in before D/C Order can be placed): Home, self care
--- NOTE | 2020-12-27 09:28 | DS.PCM_ITS ---
Providers Date of Admission: 12/26/20 Primary Care Physician: Dr. Mele Monroe MD Reason For Visit: CHEST PAIN,SOB,ABN STRESS,PAT,ABN CT ANGIO Diagnosis Discharge Diagnosis (1) S/P PTCA (percutaneous transluminal coronary angioplasty): Status: Acute Code(s): Z98.61 - Coronary angioplasty status (2) Atherosclerotic heart disease of [place] coronary artery without angina pectoris: Status: Acute Code(s): I25.10 - Atherosclerotic heart disease of [place] coronary artery without angina pectoris (3) Abnormal cardiac CT angiography: Status: Acute Code(s): R93.1 - Abnormal findings on diagnostic imaging of heart and coronary circulation (4) Paroxysmal ventricular tachycardia: Status: Acute Code(s): I47.2 - Ventricular tachycardia (5) Pure hypercholesterolemia: Status: Chronic Code(s): E78.00 - Pure hypercholesterolemia, unspecified (6) Hypothyroidism: Status: Chronic Code(s): E03.9 - Hypothyroidism, unspecified Qualifiers: Hypothyroidism type: unspecified Qualified Code(s): E03.9 - Hypothyroidism, unspecified Medications at Discharge Home Medications levothyroxine 50 mcg tablet 50 mcg PO DAILY 09/19/20 multivitamin 1 tab PO DAILY 09/19/20 rosuvastatin 10 mg tablet 10 mg PO DAILY 09/19/20 finasteride 1 mg tablet 1 mg PO DAILY tab 09/21/20 aspirin 81 mg tablet,delayed release 81 mg PO DAILY #30 tablet 10/31/20 metoprolol succinate 25 mg tablet,extended release 24 hr 25 mg PO DAILY #30 tablet 11/07/20 clopidogrel 75 mg tablet 75 mg PO DAILY 11/28/20 Hospital Course Procedures Cardiac catheterization and - (Cardiac intervention: PTCA/YECENIA) Summary of Care Provided Minutes Spent on Discharge: 45 Hospital Course: The patient presented to [facility] for further evaluation of concerns of ventricular tachycardia and an abnormal coronary artery CTA for further evaluation with diagnostic cardiac catheterization. The patient underwent diagnostic cardiac catheterization and subsequent LAD FFR. This led to LAD PTCA/YECENIA. The patient was monitored overnight. He remains symptomatically and hemodynamically stable. He remained in sinus rhythm and his ECG demonstrated no acute ECG changes. The patient appeared to be stable for release home for continued outpatient cardiovascular follow-up. Physical Exam Const alert, oriented x3 and no apparent distress General Appearance: cooperative, comfortable, well kempt and well developed HEENT normocephalic, head/scalp atraumatic and hearing grossly normal bilaterally Head and Scalp: normal to inspection, normocephalic and atraumatic Nose: external nose normal External Ear: external ears normal Eyes PERRL, EOMs intact bilaterally, conjunctivae normal and no scleral icterus General Eye: normal appearance of both eyes Neck full ROM General: normal visual inspection Chest inspection of chest normal Chest: symmetrical chest wall rise Resp normal respiratory effort and clear to auscultation bilaterally Cardio regular rate, regular rhythm, S1 normal heart sound and S2 normal heart sound GI normal to inspection, nondistended, normoactive bowel sounds Extremity normal to inspection Extremity Narrative: Right radial artery area: Pulse 2+/4+: No bruits: No hematoma Peripheral Pulses: Yes radial pulses present right 2+ Skin General Skin Exam: no breakdown Neuro oriented x3, moves all extremities, no focal motor deficits and no sensory deficits noted Psych mental status grossly normal ABG / Lab / Microbiology Data Result Diagrams: 12/27/20 05:14 12/27/20 05:14 Laboratory: Laboratory Results - last 24 hr 12/27/20 12/27/20 05:14 05:14 WBC 6.4 RBC 4.00 L Hgb 12.7 L Hct 37.9 L MCV 94.8 H MCH 31.8 MCHC 33.5 RDW Std Deviation 49.2 H RDW Coeff of Jong 14.2 Plt Count 124 L MPV 11.4 Immature Gran % (Auto) 0.200 Neut % (Auto) 71.2 H Lymph % (Auto) 16.0 L [place] % (Auto) 9.8 Eos % (Auto) 2.2 Baso % (Auto) 0.6 Absolute Neuts (auto) 4.6 Absolute Lymphs (auto) 1.03 Nucleated RBC % 0 Sodium 142 Potassium 4.1 Chloride 113 H Carbon Dioxide 24.0 Anion Gap 5 BUN 16 Creatinine 1.01 Estim Creat Clear Calc 63.02 Est GFR (MDRD) Af Amer 93 Est GFR (MDRD) Non-Af 77 BUN/Creatinine Ratio 15.8 Glucose 103 Calcium 8.2 L Total Bilirubin 0.50 AST 19 ALT 30 Alkaline Phosphatase 51 Total Protein 5.7 L Albumin 3.1 L Globulin 2.6 Albumin/Globulin Ratio 1.2 D/C Instructions Discharge Diet: Low fat / Low cholesterol Discharge Activity: May Not Drive (x 48 hours), May Shower (Today) and May Take a Tub Bath (in 7 days) May resume sexual activity in: 1-2 weeks Weight Bearing Status: - (avoid heavy exertional activity x 2 weeks) Call your doctor if your incision/area has: Continuous Slow Oozing, Sudden Increased Bleeding, Increased Pain/ Swelling, Increased Redness, Foul Smelling Discharge and Swelling at the incision site Call your doctor if you observe: Fever of 101 or Higher, Shortness of breath, Dizziness, Fainting spells, Chest pain and Increased palpitations (irregular heartbeat) Cleanse incision/area with: Soap & Water Please Follow Up With: Yung Bethea MD When: [facility] to arrange an outpatient follow up appointment Meaningful Use Info Meaningful Use Diagnoses (Choose all that apply): None applicable Discharge Plan Admission Admit Date/Time: 12/26/20 12:43 Primary Reason for Your Visit: Cardiac catheterization Attending Provider: Yung Bethea Primary Care Provider: Mele Monroe Instructions Patient Instructions: ED Chest Pain, Noncardiac Discharge Orders/Prescriptions Prescriptions: No Action finasteride 1 mg tablet 1 mg PO DAILY RF: 0 aspirin [Adult Low Dose Aspirin] 81 mg tablet,delayed release (DR/EC) 81 mg PO DAILY Qty: 30 RF: 11 rosuvastatin 10 mg tablet 10 mg PO DAILY RF: 0 multivitamin Tablet 1 tab PO DAILY RF: 0 levothyroxine 50 mcg tablet 50 mcg PO DAILY RF: 0 metoprolol succinate 25 mg tablet extended release 24 hr 25 mg PO DAILY Qty: 30 RF: 3 clopidogrel 75 mg tablet 75 mg PO DAILY RF: 0 Referrals / Follow Up: Mele Monroe MD [Primary Care Provider] - Yung Bethea MD [STAFF PHYSICIAN] - Disposition Disposition (needs filled in before D/C Order can be placed): Home, self care
--- NOTE | 2020-12-27 09:55 | CL.I_ITS ---
Patient Name: ANANDA WALLER Study Date: 12/26/2020 Performing: Tabby Arnold MD Ht: 68 inches 173 cm : 1945 Wt: 167.8 lbs 76 kg Age: 75 Gender: male BSA: 1.9 PROCEDURE(S) PERFORMED SH08-PSU W OR WO PTCA, SINGLE CORONARY ARTERY CLINICAL PROFILE AND CO-MORBIDITIES Indications: Cardiac Arrythmia, Other: abnormal coronary artery CTA Heart Failure: None Stress/Imaging Date: 08/03/2020 Stress Test with SPECT MPI: Negative Angina Classification Anginal Classification w/in 2 Weeks: Anginal Equivalent Dyspnea CAD Presentations: Other: palpitations; chest pain; shortness of breath CONCLUSIONS Successful YECENIA to ostial, proximal and mLAD RECOMMENDATIONS DESCRIPTION OF PROCEDURE The patient arrived to the procedure lab. The risks and benefits of the procedure as well as a full d escription of our services here and current unavailability of surgical backup were fully explained to the patient and/or their significant other prior to the catheterization. The Timeout was completed, verifying the correct patient and procedure. The patient's procedural site was prepped and draped in the usual fashion. Local anesthetic was given subcutaneously to right radial region with Lidocaine 2% per Dr. Arnold Using a modified Seldinger technique,arterial access was obtained via the right rad ial artery, a 6Fr sheath was inserted. per Dr. Arnold Left Coronary Artery selective angiography w as performed in multiple views using a 5 Fr. 4.0 [place] catheter. Right Coronary Artery selective holly ography was then performed in multiple views using a 5 Fr. 4.0 [place] catheter. Left Ventriculography was performed in [place]AUF[place] projection using a 5 Fr. [place] catheter. LV to AO pullback pressures were then recorded.The images were reviewed and options discussed. A decision was then made to proceed with an Intervention, IVUS or other adjunct procedure. XB3 Guide catheter was inserted and engaged into the LCA. The FFR/iFR wire was inserted. Adenosin e was then given per protocol. FFR Ratio Baseline: 0.98 FFR Ratio post Adenosine: 0.80 The FFR/iFR wi re was left in place as guide wire. 2.5 x 15 Emerge Balloon catheter was advanced across lesion in th e LAD, mid. PTCA balloon inflated at 10 atms for 18 secs. PTCA balloon inflated at 6 atms for 10 secs . Angiogram performed post balloon dilatation. 3.0 x 40 Orsiro Drug Eluting stent was advanced across the lesion in the LAD, mid. Angiogram performed post stent deployment. The arterial sheath was pul led and a TR Band was applied for hemostasis INTERVENTION INFORMATION LESION SITE: LAD (Mid) Lesion Complexity: High/C, chronic total occlusion: No, lesion at bifurcation: Yes, thrombus present: No, lesion length: 36 mm, culprit lesion: Yes, Previously treated lesion: No Pre Stenosis: 75 % Pre intervention GARRY flow: 3 PROCEDURE: Drug Eluting Stent with pre dilatation. There was a 50% stenosis in the ostial LAD and the mLAD lesion did exend to the distal edge of proxim al LAD. One stent was used to cover the stenoses from the ostial LAD to the mid LAD with excellent an giographic result Post Stenosis: 0 % Post intervention GARRY flow: 3 Lesion Devices: Cardinal 6 Fr XB3.0 100cm Guide Catheter IGT Devices ( [employer]ly [email or web address]) Coronary FFR Wire Dusty Sci EMERGE MR 2.50x15 BALLOON COMPLICATIONS No Complications PROCEDURE MEDICATIONS Fentanyl 50 mcg IV Versed 1 mg IV Fentanyl 50 mcg IV Versed 1 mg IV Adenosine 21.6 mg IV @ 12/26/2020 12:24:16 Heparin given IA 12/26/2020 11:26:37 Heparin 3000 unit(s) IV 12/26/2020 12:14:56 Plavix 75 mg PO 12/26/2020 10:26:32 Verapamil 2.5mg, Ntg 100mcgs, 3000 units of Heparin given IA 12/26/2020 11:26:37 SUMMARY OF HEMODYNAMIC DATA Time AIR REST ECG 09:21:19 AO 153/81 (112) SA 11:28:24 LV 146/-6, 30 11:46:54 LV 147/-5, 32 11:47:00 LV 138/0, 32 11:47:54 LVp 138/-1, 31 11:47:58 AO 133/66 (93) 12:15:07 Signed By Tabby Arnold MD On 12/27/2020 09:54:38 Tabby Arnold MD
--- NOTE | 2020-12-27 10:00 | EKG12_ITS ---
Test Reason : AM Blood Pressure : / mmHG Vent. Rate : 052 BPM Atrial Rate : 052 BPM P-R Int : 146 ms QRS Dur : 098 ms QT Int : 444 ms P-R-T Axes : 023 -02 036 degrees QTc Int : 412 ms Sinus bradycardia Otherwise normal ECG Confirmed by AMRIK ANSARI, YUNG ([id number]), publishing editor BRENDON LUGO ([id number]) on 12/28/2020 12:46:57 PM Referred By: Yung Rowley Confirmed By:YUNG ROWLEY MD
[2020-12-27 10:05] VITALS: BP 138/63; PULSE 53; RESP 16; TEMP 36.6; O2SAT 98
[2020-12-27] MEDS: Aspirin 81 MG TAB.CHEW PO (10:12)
[2020-12-27] MEDS: Clopidogrel Bisulfate 75 MG Tablet PO (10:12)
--- NOTE | 2020-12-27 10:18 | PHA.DC.MR ---
Pharmacy Service has performed discharge medication reconciliation for this patient. The patient's discharge medication list was reviewed for discrepancies and discrepancies were resolved. Home Medications levothyroxine 50 mcg tablet 50 mcg PO DAILY 09/19/20 multivitamin 1 tab PO DAILY 09/19/20 rosuvastatin 10 mg tablet 10 mg PO DAILY 09/19/20 finasteride 1 mg tablet 1 mg PO DAILY tab 09/21/20 aspirin 81 mg tablet,delayed release 81 mg PO DAILY #30 tablet 10/31/20 metoprolol succinate 25 mg tablet,extended release 24 hr 25 mg PO DAILY #30 tablet 11/07/20 clopidogrel 75 mg tablet 75 mg PO DAILY 11/28/20
== END 2020-12-27 09:27 | disposition home or self-care (01) ==
LOC: PCU 14:47
PROVIDERS: Nurse Practitioner Family; Specialist; Admitting Provider Internal Medicine Cardiovascular Disease; PCP Family Medicine; Referring Provider Internal Medicine Cardiovascular Disease; Visit Provider Internal Medicine Cardiovascular Disease
DX: I25.10 Atherosclerotic heart disease of native coronary artery without angina pectoris (principal); I47.2 Ventricular tachycardia; E03.9 Hypothyroidism, unspecified; Z79.899 Other long term (current) drug therapy; Z79.02 Long term (current) use of antithrombotics/antiplatelets; Z79.82 Long term (current) use of aspirin; E78.00 Pure hypercholesterolemia, unspecified; R00.1 Bradycardia, unspecified; R93.1 Abnormal findings on diagnostic imaging of heart and coronary circulation
CPT/HCPCS: 36415; 80048; 80053; 85025; 85610; 85730; 92928; 93005; 93458; 96360; 96361; 99152; 99153; 99218; J0153; J7030; J7040; Q9967; C1725; C1769; C1874; C1887; C1894; C9600; G0378; G0379

== ENCOUNTER → 2021-01-08 12:54 | Outpatient (CLI) | payer MEDICARE, SELFPAY ==
[2020-12-26 14:58] VITALS: BMI 25.2
--- NOTE | 2021-01-08 13:01 | PCM.CR.HP2 ---
CR - History & Physical - General Arrival date:: 01/08/21 Arrival time:: 13:02 Date of Referral:: 12/26/20 Date of CR Evaluation:: 01/08/21 Referring Physician: Dr. Yung Bethea Primary Diagnosis: PCI with coronary stent - History of Present Cardiac Event Onset Date: Enter Onset Date of cardiac illnesses in Comment field below PTCA or coronary stenting:: Yes - 12/26/2020 - Sleep Disorder Evaluation Hx of Sleep Apnea: No Do you snore loudly (louder than talking or can be heard through closed doors)?: No Do you often feel tired/ fatigued/ sleepy during daytime?: Yes - Pt declines Has anyone observed you stop breathing during sleep?: No History of Hypertension (for STOP score): Yes STOP Results: Positive - Medications Home Medications: Ambulatory Orders Medication Instructions Recorded levothyroxine 50 mcg tablet 50 mcg PO DAILY 09/19/20 multivitamin 1 tab PO DAILY 09/19/20 rosuvastatin 10 mg tablet 10 mg PO DAILY 09/19/20 finasteride 1 mg tablet 1 mg PO DAILY tab 09/21/20 aspirin 81 mg tablet,delayed 81 mg PO DAILY #30 tablet 10/31/20 release metoprolol succinate 25 mg 25 mg PO DAILY #30 tablet 11/07/20 tablet,extended release 24 hr clopidogrel 75 mg tablet 75 mg PO DAILY 11/28/20 - Allergies Allergies/Adverse Reactions: Allergies No Known Allergies Allergy (Verified 12/18/20 15:49) Advanced Directives - Advanced Directives Power of Analog Ic Design Architect: Yes Living Will: Yes Advance Directives Information Provided: Yes Advance Directives on File: No - unsure DNR Order?:: No Past Medical History - Covid-19 Screening Fever: No Unexplained muscle aches: No Current respiratory symptoms: No Upper respiratory infections symptoms: No Gastro-intestinal symptoms: No Xha-[id number] symptoms: No Has tested positive for COVID-19 in last 30 days: No Had contact w/person w/symptoms or Covid-19 (+) last 14 days: No Has High Risk Exposures ID'd by Health dept/Inf Control team: No 65 years or older:: Yes Lives in Assisted Living facility:: No Has a chronic lung disease or moderate to severe asthma:: No Has a serious heart condition:: Yes Immunocompromised:: No Severely obese (Body Mass Index of 40 or higher):: No Diabetic:: No Has chronic kidney disease undergoing dialysis:: No Has liver disease:: No - Past Medical Illness Medical History: Past Medical History (Last Updated 12/28/20 @ 16:53 by Cortney Pires) Atherosclerotic heart disease of [place] coronary artery without angina pectoris I25.10 Hypothyroidism E03.9 Palpitations R00.2 Presence of stent in coronary artery Onset Date: ~12/26/20 Z95.5 Successful YECENIA to ostial, proximal and mLAD per Cardiac cath 12/26/20 Dr. 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 Arnold S/P PTCA (percutaneous transluminal coronary angioplasty) Z98.61 - Family History Summary Family History: Family History (Last Reviewed 12/26/20 @ 15:03 by Dennise Oconnell) Father Heart disease Mother Heart disease Social History - Smoking History Smoking Status: Never smoker Hx Tobacco Use: No Hx Smoking Exposure: No - Alcohol Use Alcohol Usage: No - Substance Abuse Hx Substance Use: No - Occupation Occupation (List type of work in comments):: Retired - Hobbies, Recreation, Social Activities Hobbies: Other - music, gardening Recreational Activities: I am able to engage in all my recreational activities Social Environment - Status Marital Status: - Current Living Arrangements Living Environment:: Spouse - Children How many children do you have?: 0 Do any of your children live nearby?: No - Safety Do you feel safe in your surroundings?: Yes - Assistance Do you need any assistance at home?: none Review of Systems - Review of Systems Hints: Right click = Denies (Slash). Left click = Reports ([place]) Review of Present Symptoms: Reports: Angina, Fatigue, Heart Arrhythmia/Irregularities, Appetite - Normal, Appetite - Special Diet, Sleep - Normal. Denies: Shortness of Breath at Rest, Shortness of Breath with Exertion, PVD, Operative Discomfort, Wound Healing, Dizziness/Lightheadedness, Sexual Changes - Pain Is Patient Pain Free?: Yes Pain Location: none Risk Factor Assessment - Chief Complaint Chief Complaint: PCI with coronary stent - Vital Signs Pulse Ox: 99 Blood Pressure: 122/62 - Pulse Pulse Rate: 52 Pulse Rhythm: Regular - Diabetes Nutrition Referral for Diabetes: No - Obesity Height: 5 ft 8 in Weight:: 72.575 kg Weight in Pounds: 160.0 lbs Body Mass Index (BMI): 24.3 Nutritional Referral for Obesity: No - Physical Inactivity Physical Inactivity: Reg Exercise 30 min/day - Risk Stratification Risk Guidelines: Lowest Risk: Risk Factor for Smoking, Moderate Risk: Risk Factor for Dyslipidemia, Risk Factor for Diabetes, Risk Factor for Obesity, Risk Factor for Hypertension, Risk Factor for Sedentary Lifestyle, Risk Factor for Depression - Family History Family History: Family History (Last Reviewed 12/26/20 @ 15:03 by Dennise Oconnell) Father Heart disease Mother Heart disease Motivation - Motivation to Participate On a scale of 1 to 10, how prepared are you to commit to attending program?: 5 What do you see as barriers to successfully being able to complete the program?: none What do you see as the benefits of succesfully completing the program? In other words, what do you hope to get out of participating in the program?: improved health Are there issues you are dealing with that will interfere with completing the program?: none Do you have a spouse or signficant other, family or friends who will help support you to complete the program?: family
--- NOTE | 2021-01-08 13:02 | CR.ITP_ITS ---
Diagnosis - General Information Admitting Diagnosis: PCI with coronary stent Personal Learning Style:: Audio/Visual, Demonstration, Group, Individual Preference, Written Barriers to Learning: Vision Impairment Stage of change r/t lifestyle modifications:: Contemplation Gave educational material for:: Treating Heart Disease, Emotions & Heart Disease, Stress Management & Relaxation, Sleep Disorders & Heart Disease, How The Heart Works, What it means to have Heart Disease, How Coronary Artery Disease is Diagnosed, Heart Procedures, What Heart Medications Do, Risk Factors & Modifications, Living an Active Life, Nutrition - Education/Goals Cardiac Rehabilitation Goals: 1. Maintain the individual as the primary focus of care. 2. To improve the patient's quality of life. 3. Identification of cardiac risk factors and provide cardiac risk factor management. 4. Enhance the psychosocial status of the patient. 5. Reconditioning enough to allow the patient to resume customary activities. 6. Control symptoms of cardiac disease Personal Goals: Initial Assessment: Improve muscle strength and endurance, Control risk factors (learn risk factor modification) Scale for measuring improvement of personal goals: Enter appropriate number in Comments. 2 = Unchanged. 3 = Slightly Better. 4 = Moderate Improvement. 5 = Met my Goal - Diagnosis & Disease Process Outcomes/Goals: Pt IDs own risk factors & lifestyle modifications by Session 10, Verbalizes symptoms of angina & response by session 3., Pt independently manages, Other Additional Outcomes/Goals: Plan/Interventions: Assist Pt to ID & engage in lifestyle modification to reduce CVD risk, Instruct on individual risk factors, Review symptoms of angina & emergency actions, Review secondary diagnosis & identify educational needs., Other see comment 30 day Reassessments:: Not Met 30 day Reassessments:: Not Met 30 day Reassessments:: Not Met 30 day Reassessments:: Not Met Final Reassessments:: Not Met - Safety Referral to Physical Therapy: No Referral to [facility] Case Management: No Fall Risk Assessed:: Yes Assistive Devices:: None Exercise - Initial Assessment - Visit Date of Eval: 01/08/21 - initial eval Mets: Pre-: >7 METS for 30 minutes by discharge - Physician Prescribed Exercise Modalities: Treadmill, Biodyne, Rower, Airdyne, NuStep, SciFit Frequency: 3x/week for 12 weeks [36 sessions] Intensity: 60-80% of age predicted maximum heart rate reserve Current METSs:: 3 Target Heart Rate:: 95-124 Resting Blood Pressure: 122/62 EKG Type: Sinus osman - Outcomes & Goals Goals:: Verbalizes understanding of THR, RPE & goal METS by session 6, Documents in home exercise log/reports 30 min aerobic 5 day/wk by DC, Demonstrates accurate pulse taking by DC, Other additional outcome/goals: see below - Intervention & Plan Exercise Program Goals: Instruct on personal THR & RPE, Instruct on MET level & personal MET goal, Show patient to take own pulse /validate performance until accurate, Instruct on home exercise, Other additional plan/int - Physical Activity Home Exercise Physical Activity - Home Exercise: Safe Exercise, Warm-up, Self-monitoring, Cool-Down, Home Exercise > 30 min Daily, Sitting Time <3 hours/daily - Outcomes & Goals Outcomes/Goals: Demonstrates correct Warm-up/exercise Cool-Down (S3) if = 2.5 METs, Verbalizes symptoms of exercise intolerance by Session 3 (S3), Demonstrate safe equipment use (S3) & follows exercise prescrition (6), Other: See below - Intervention & Plan Plan/Intervention: Instruct warm-up & cool-down if exercising at > 2 METs, Instruct on symptoms of exercise intolerance & actions to take, Instruct & monitor on saf, Assess intial functional capacity & safety risk, Other See below Nutrition - Initial Assessment - Program Goals Nutrition Program Goals: LDL <100 optimal. 100 - 129 Near optimal. 130 - 159 Borderline High. 160 - 189 High. Total Cholesterol <200 desirable. 200 - 239 Borderline High. >/= 240 High. HDL < 40 Low >/=60 High. Triglycerides <150 desirable. <199 optimal. VlDL 5 - 40. HgbA1C <7%. BMI <25 Patient has diagnosis of Hyperlipidemia (ICD E78)?: Yes - Visit Date of Assessment:: 01/08/21 - initial evaal - Cholesterol/Lipids Determine presence & major risk factors that modify LDL goal: Hypertension or hypertensive medication, Low HDL cholesterol <40 mg/dL*, Family history of premature CHD in Male < 55 years: female <65 yearsFa, Age men > 45 years; women >/= 55 years Outcomes/Goals: Pt IDs own risk factors & lifestyle modifications by Session 10, Verbalizes symptoms of angina & response by session 3., Pt independently manages, Other Additional Outcomes/Goals: Intervention/Plan: Advocate for lipid panel cholesterol medication if applicable, Instruct on personal lipid levels & lipid goals/NCEP guidelines, Instruct on cholesterol, Other additional plan/int Referral to dietitian:: No - Diabetes (Other Core Measures) Diabetes Type: Not Applicable - Weight Mgt (Other Care) Height: 5 ft 8 in Weight:: 72.575 kg BMI: 24.3 Diagnosis Overweight/Obesity BMI> 30% ICD-10 E66: No Diagnosis High BMI/Morbid Obesity BMI> 35% ICD-10 Z68: No Outcomes/Goals: Pt sets, maintains & shows weight loss goal & trend during rehab, Other additional outcomes/goals Intervention/Plan: Instruct on ideal BMI & set weight loss goal w/patient, Assist pt to ID & incorporate diet changes for weight loss by S9, Refer to Structured Weight Loss program as appropriate, Encourage goal of using 250- 300dcal per session for weight loss, Other additional plan/interventions - Healthy Eating Habits Will attend diet classes:: Yes Outcomes/Goals:: Consume diet rich in vegs,fruits,whole grain/high fiber,fish,lean meat, Limit sat/trans fats,cholesterol & added salts & sugars, Other additional outcome/goals: Intervention/Plan:: Assess current eating habits, Other Additional plan/interventions - Education Gave educational materials for:: Signs & symptoms of hypoglycemia, Signs & symptoms of hyperglycemia, Relate diabetes to coronary artery disease, Healthy eating Nutrition - 30-Day Assessment Nutrition - 60-Day Assessment Nutrition - 90-Day Assessment Nutrition - Final Assessment Medical - Initial Assessment - Visit Date of Eval: 01/08/21 - initial eval - Medication Compliance Preventative Medication(s):: Clopidogrel/P2Y12 inhibit, Beta delano H/O mental health issues: depression, anxiety, or addiction?: No Doesn?t believe in the benefits of treatment?: No Believes medications are unnecessary or harmful?: No Has a concern about medication side effects?: No Expresses concern over the cost of medications?: No Outcomes/Goals: Verbalizes medications,desired effect & common side effects @ DC, Pt self-reports following medication regimen, Keeps card in wallet w/medications listed by DC, Other additional outcome/goals: Interventions/plans: Instruct on medication effects & side effects, Review medication list w/patient every two weeks, Instruct importance of taking meds as ordered & assist problem solving, Other additional - Tobacco Use Tobacco Use: Non-smoker Do you use smokeless tobacco?: No Outcomes/Goals: Smoking cessation achieved or maintained by discharge, Identify aids/strategies for achieving smoking cessation by session 6, Other additional outcome/goals Interventions/plan: Instruct on effects of smoking & provide smoking cessation resource, Assist pt to set quit date & provide encouragement, Assist pt to develop strategies to achieve/maintain quit date, Assist pt w/nicotine replacement & medication for cessation success, Other additional plan/interventions - Hypertension Hypertension Diagnosis:: Hypertension ICD-10 I10 [place] [employer] Hypertension Guidelines: [place] [employer] Hypertension Guidelines. Normal BP Less than 120/80. Elevated BP 120/80. Hypertension Stage 1: BP 130-139/80-89. Hypertesnion Stage 2: BP 140 or higher/90 or higher. Hypertension Crisis: BP higher than 180/120 Outcomes/Goals: Able to verbalize/achieve optimal blood pressure <130/80, Incorporates diet changes & exercise for blood pressure control by DC, Other additional outcomes/goals Interventions/plan: Instruct on optimal blood pressure, hypertension & medications, Instruct on effects of sodium, alcohol, stress, exercise &hypertension, Other additional plan/interventions - Tobacco Cessation Referral Smoking Cessation Referral:: No Individual Education/Counseling:: No Education Schedule Given:: Yes Medical- 30-Day Assessment Medical- 60-Day Assessment Medical- 90-Day Assessment Medical - Final Assessment Psychosocial - Initial Assess - VIsit Date of Eval: 01/08/21 - initial eval History of previous Mental disease:: No - Referral to Behavioral Health PS - Interventions: Yes Referral to Physician if PHQ-9 if score is 5-9:, Yes Attend Stress Management Classes - Outcomes/Goals: See list Psychosocial Outcomes/Goals:: ID's personal stressors & 2 strategies to manage stress by discharge, Other Additional outcome/goals: - Intervention/Plan: See List Interventions/Plan:: Assess stressors,coping strategies & signs of derpression on admission, Instruct/assist pt to develop coping & personal stress Mgt strategies, Refer to Behavioral Health if appropriate, Refer to Physician if appropriate, Instruct patient to recognize signs & symptoms of depression, Instruct patient to recog, Other additional plan/intervention Psychosocial - 30-Day Assess Psychosocial - 60-Day Assess Psychosocial - 90-Day Assess Psychosocial - Final Assessmen Patient Health Questionnaire Initial Assessment 1. Little interest or pleasure in doing things: Not at all 2. Feeling down, depressed, or hopeless: Not at all 3. Trouble falling or staying asleep, or sleeping too much: Several days 4. Feeling tired or having little energy: More than half the days 5. Poor appetite or overeating: Not at all 6. Feeling bad about yourself -- or that you are a failure or have let yourself or your family down: Not at all 7. Trouble concentrating on things, such as reading the newspaper or watching television: Not at all 8. Moving or speaking so slowly that other people could have noticed. Or the opposite - being so fidgety or restless that you have been moving around a lot more than usual: Not at all 9. Thoughts that you would be better off , or of hurting yourself in some way: Not at all How difficult have these problems made it for you to do your work, take care of things at home, or get along with other people?: Somewhat difficult Total Score: 3 MACHO-Q SV Test - Statements CAD is a disease of the arteries in the heart: False Examples of risk factors for heart disease: True Angina is chest pain or discomfort: True The benefits of resistance training include: True Eating more meat and dairy products: False Anti-platelet medications such as aspirin are important: True The only effective way to manage stress: False An exercise warm-up slowly increases heart rate: True Prepared, processed foods usually have high sodium: True Depression is common after a heart attack: True The statin medications lower cholesterol: True To control blood pressure, lower the amount of sodium: True If someone gets chest discomfort during walking: False Transfats are partially hydrogenated vegetable oils: True Sleep apnea that is not treated increases the risk: False To control cholesterol, one should become a vegetarian: False Someone knows if he/she is exercising at the right level: True Diabetes cannot be prevented with exercise & health eating: True Stress is a large risk for heart attack: True A diet that can help lower blood pressure is rich in: True - Total Score Total Correct Responses: 19 Self-Efficacy Initial Assessment We would like to know how confident you are in doing certain activities. Please select your confidence level for:: Select your confidence level for the following using the scale 1-10 where 1 is not at all confident and 10 is totally confident. Your score is the average of all 6 responses. Fatigue: How confident are you that you can keep the fatigue caused by your disease from interfering with the things you want to do? Select Number: 10 Physical Discomfort or Pain: How confident are you that you can keep the physical discomfort or pain of your disease from interfering with the things you want to do? Select Number: 9 Emotional Distress: How confident are you that you can keep the emotional distress caused by your disease from interfering with the things you want to do? Select Number: 10 Other Symptoms or Health Problems: How confident are you that you can keep other symptoms or health problems from interfering with the things you want to do? Select Number: 9 Different Tasks and Activities: How confident are you that you can do the different tasks and activities needed to manage your health condition so as to reduce your need to see a doctor? Select Number: 8 Medication: How confident are you that you can do things other than just taking medication to reduce how much your illness affects your everyday life? Select Number: 10 Total Score:: 9 Nutrition Survey - Nutrition Survey Initial Have you lost >10 lbs over the past 2 months without trying?: No Are you following a special diet at home for diabetes, low fat, or low salt?: No Are you interested in meeting with a dietitian for help understanding your diet?: No Do you eat less than 3 meals a day?: Yes Do you eat fatty meats (soriano, sausage, ribs, etc), fried foods, desserts, large amounts of salad dressings, margarine, butter, or cheese most days?: No Do you have food allergies? [Enter types in comment field]: No Do you eat in restaurants more than 3 times a week?: No Do you season food with salt, seasoning salt, or garlic salt?: Yes Do you used canned, boxed, frozen meals, or soups, seasoning packets?: Yes Total Score:: 3
[2021-01-08 13:54] VITALS: BP 122/62; PULSE 52; O2SAT 99; BMI 24.3
== END ==
PROVIDERS: PCP Family Medicine; Referring Provider Internal Medicine Cardiovascular Disease; Visit Provider Internal Medicine Cardiovascular Disease
DX: Z95.5 Presence of coronary angioplasty implant and graft (principal); I25.10 Atherosclerotic heart disease of native coronary artery without angina pectoris; I10 Essential (primary) hypertension; E03.9 Hypothyroidism, unspecified; R00.2 Palpitations; E78.00 Pure hypercholesterolemia, unspecified

== ENCOUNTER → 2021-01-11 10:26 | Outpatient (CLI) | payer MEDICARE, SELFPAY ==
[2021-01-08 13:54] VITALS: BMI 24.3
[2021-01-11 11:37] LABS: Hematocrit 41.1 % (40-54); Hemoglobin 13.7 g/dL (13.0-16.5); Mean Corp Hgb Conc 33.3 g/dL (32-36); Mean Corpuscular Hgb 31.1 pg (27.0-32.0); Mean Corpuscular Volume 93.2 fL (80-94); Mean Platelet Vol. 11.3 fl (6.2-12.0); Platelet Count 163 K/mm3 (150-450); RBC Distribution Width SD 48.1 fl (35.1-43.9); Red Blood Count 4.41 M/mm3 (4.6-6.2)
[2021-01-11 12:16] LABS: Anion Gap 6 (5-15); BUN 15 mg/dL (7-18); BUN/Creat Ratio 14.2 RATIO (10-20); Calcium,Total 8.7 mg/dL (8.5-10.1); Chloride 110 mmol/L (98-107); Creatinine, Serum 1.06 mg/dL (0.70-1.30); EST Glomerular Filtration Rate 73 mL/min (>60); Est Glom Filt Rate - Afr Amer 88 mL/min (>60); Glucose 100 mg/dL (74-106); Potassium 4.3 mmol/L (3.5-5.1); Sodium Level 142 mmol/L (136-145)
== END ==
PROVIDERS: PCP Family Medicine; Visit Provider Physician Assistant Medical
DX: R53.83 Other fatigue (principal); R06.02 Shortness of breath; R07.2 Precordial pain; R00.2 Palpitations; Z95.5 Presence of coronary angioplasty implant and graft
CPT/HCPCS: 36415; 80048; 85027

== ENCOUNTER 2021-01-24 10:15 | Outpatient (RCR) | payer MEDICARE, SELFPAY ==
[2021-01-08 13:54] VITALS: BMI 24.3
== END 2021-01-24 23:59 ==
LOC: CR 10:15
PROVIDERS: PCP Family Medicine; Referring Provider Internal Medicine Cardiovascular Disease; Visit Provider Internal Medicine Cardiovascular Disease
DX: I25.10 Atherosclerotic heart disease of native coronary artery without angina pectoris (principal); Z95.5 Presence of coronary angioplasty implant and graft
CPT/HCPCS: 93798

== ENCOUNTER → 2021-02-08 14:19 | Outpatient (CLI) | payer MEDICARE, SELFPAY ==
[2021-01-08 13:54] VITALS: BMI 24.3
[2021-01-25 13:29] VITALS: BMI 24.3
[2021-02-08 14:22] LABS: Bacteria 0 SEEN /hpf (None Seen); Mucous, Urine 0 SEEN /hpf (<or=2+); Red Blood Cells-Urine 0 SEEN /hpf (0-5); White Blood Cells 0 SEEN /hpf (0-5)
[2021-02-08 17:40] LABS: Absolute Lymphocyte Count 1.14 X10^3/uL (0.83-4.51); Basophil# 0.04 X10^3/uL; Basophil% 0.6 % (0-1); Eosinophil# 0.13 X10^3/uL; Eosinophils% 1.9 % (0-5); Hematocrit 41.6 % (40-54); Hemoglobin 13.6 g/dL (13.0-16.5); Lymphocyte # 1.14 X10^3/ul (0.83-4.51); Lymphocyte % 16.3 % (19-41); Mean Corp Hgb Conc 32.7 g/dL (32-36); Mean Corpuscular Hgb 30.4 pg (27.0-32.0); Mean Corpuscular Volume 93.1 fL (80-94); Mean Platelet Vol. 11.3 fl (6.2-12.0); Monocyte# 0.67 X10^3/uL; Monocyte% 9.6 % (0-10); NRBC Flagged by Analyzer 0 % (0-5); Neutrophil # 4.99 X10^3/uL (2.7-7.7); Neutrophil % 71.5 % (47-70); Platelet Count 166 K/mm3 (150-450); RBC Distribution Width CV 13.5 % (11.6-14.6); RBC Distribution Width SD 46.1 fl (35.1-43.9); Red Blood Count 4.47 M/mm3 (4.6-6.2)
[2021-02-08 17:41] LABS: Color, Urine Yellow (Yellow); Glucose, Dipstick Normal (Normal); Ketone-Dipstick Negative (Negative); Leukocyte Esterase-Dipstick Negative /ul (Negative); Nitrite-Dipstick Negative (Negative); Occult Blood-Urine Negative /ul (Negative); Protein-Dipstick Negative (Negative); Urine Bilirubin Dipstick Negative (Negative); Urine Clarity Sl. Cloudy (Clear); Urine Urobilinogen Normal (Normal)
[2021-02-08 17:58] LABS: Amorphous Sediment 1+ URATE; Squamous Epithelial Cells - UA 0-5 SEEN /hpf (0-5)
[2021-02-08 18:04] LABS: ALB/GLOB Ratio 1.2 RATIO (0.9-2.4); AST(SGOT) 21 U/L (15-37); Alanine Aminotransfer ALT/SGPT 37 U/L (16-61); Albumin, Serum 3.8 g/dL (3.2-5.0); Alkaline Phosphatase 57 U/L (45-117); Anion Gap 4 (5-15); BUN 15 mg/dL (7-18); Calcium,Total 8.6 mg/dL (8.5-10.1); Chloride 110 mmol/L (98-107); Cholesterol 126 mg/dL (200); Creatinine, Serum 1.07 mg/dL (0.70-1.30); EST Glomerular Filtration Rate 72 mL/min (>60); Est Glom Filt Rate - Afr Amer 87 mL/min (>60); Globulin 3.2 g/dL (2.2-4.2); Glucose 106 mg/dL (74-106); High Density Lipoprotein 58 mg/dL; Potassium 4.2 mmol/L (3.5-5.1); Sodium Level 140 mmol/L (136-145); T4 Free Direct 0.89 ng/dL (0.76-1.46); Thyroid Stim Hormone (TSH) 1.96 uIU/mL (0.358-3.74); Triglycerides 95 mg/dL; Very Low Density Lipoprotein 19 mg/dL (5-40)
[2021-02-09 12:39] LABS: Hemoglobin A1c 5.6 % (3.8-5.6)
== END ==
PROVIDERS: PCP Family Medicine; Referring Provider Family Medicine; Visit Provider Family Medicine
DX: E03.9 Hypothyroidism, unspecified (principal); E78.00 Pure hypercholesterolemia, unspecified; I10 Essential (primary) hypertension; R73.9 Hyperglycemia, unspecified; I25.10 Atherosclerotic heart disease of native coronary artery without angina pectoris
CPT/HCPCS: 36415; 80053; 80061; 81001; 83036; 84439; 84443; 85025

== ENCOUNTER → 2021-06-12 14:48 | Outpatient (CLI) | payer MEDICARE, SELFPAY ==
[2021-01-08 13:54] VITALS: BMI 24.3
[2021-06-12 17:57] LABS: PSA,Total - Annual Screen 0.44 ng/mL (0.00-4.00)
== END ==
PROVIDERS: PCP Family Medicine; Referring Provider Family Medicine; Visit Provider Family Medicine
DX: N45.1 Epididymitis (principal); Z12.5 Encounter for screening for malignant neoplasm of prostate
CPT/HCPCS: 36415; 84153; 87086; G0103

== ENCOUNTER → 2021-12-11 | Outpatient (CLI) | payer MEDICARE, SELFPAY ==
[2021-01-08 13:54] VITALS: BMI 24.3
[2021-12-11 12:18] LABS: Absolute Lymphocyte Count 1.14 X10^3/uL (0.83-4.51); Absolute Neutrophil Count 3.7 X10^3/uL (2.0-7.7); Basophil# 0.06 X10^3/uL; Basophil% 1.1 % (0-1); Eosinophil# 0.17 X10^3/uL; Hematocrit 42.2 % (40-54); Hemoglobin 14.2 g/dL (13.0-16.5); Lymphocyte # 1.14 X10^3/ul (0.83-4.51); Lymphocyte % 20.4 % (19-41); Mean Corp Hgb Conc 33.6 g/dL (32-36); Mean Corpuscular Hgb 31.3 pg (27.0-32.0); Mean Platelet Vol. 10.9 fl (6.2-12.0); Monocyte# 0.53 X10^3/uL; Monocyte% 9.5 % (0-10); NRBC Flagged by Analyzer 0 % (0-5); Neutrophil # 3.67 X10^3/uL (2.7-7.7); Neutrophil % 65.8 % (47-70); Platelet Count 172 K/mm3 (150-450); RBC Distribution Width SD 47.8 fl (35.1-43.9); Red Blood Count 4.54 M/mm3 (4.6-6.2); White Blood Count 5.6 K/mm3 (4.4-11.0)
[2021-12-11 12:30] LABS: ALB/GLOB Ratio 1.3 RATIO (0.9-2.4); AST(SGOT) 16 U/L (15-37); Alanine Aminotransfer ALT/SGPT 31 U/L (16-61); Albumin, Serum 3.9 g/dL (3.2-5.0); Alkaline Phosphatase 54 U/L (45-117); Anion Gap 6 (5-15); BUN 14 mg/dL (7-18); BUN/Creat Ratio 14.5 RATIO (10-20); Calcium,Total 8.9 mg/dL (8.5-10.1); Chloride 111 mmol/L (98-107); Cholesterol 128 mg/dL (200); Creatinine, Serum 0.97 mg/dL (0.70-1.30); EST Glomerular Filtration Rate 80 mL/min (>60); Est Glom Filt Rate - Afr Amer 97 mL/min (>60); Globulin 3.1 g/dL (2.2-4.2); Glucose 93 mg/dL (74-106); High Density Lipoprotein 57 mg/dL; Potassium 3.9 mmol/L (3.5-5.1); Sodium Level 141 mmol/L (136-145); T4 Free Direct 1.07 ng/dL (0.76-1.46); Triglycerides 65 mg/dL; Very Low Density Lipoprotein 13 mg/dL (5-40)
== END | disposition home or self-care (01) ==
LOC: MFPLAB 10:02
PROVIDERS: PCP Family Medicine; Visit Provider Family Medicine
DX: I25.10 Atherosclerotic heart disease of native coronary artery without angina pectoris (principal); E03.9 Hypothyroidism, unspecified
CPT/HCPCS: 36415; 80053; 80061; 84439; 84443; 85025

== ENCOUNTER 2022-03-07 08:31 | Day surgery (SDC) | payer MEDICARE, SELFPAY ==
[2021-01-08 13:54] VITALS: BMI 24.3
--- NOTE | 2022-01-25 11:46 | EKG12_ITS ---
Test Reason : PRE-OP Blood Pressure : / mmHG Vent. Rate : 060 BPM Atrial Rate : 060 BPM P-R Int : 142 ms QRS Dur : 102 ms QT Int : 436 ms P-R-T Axes : 009 -17 019 degrees QTc Int : 436 ms Normal sinus rhythm Normal ECG Confirmed by AMRIK ANSARI, JIMBO ([id number]), newspaper copy editor BRENDON LUGO ([id number]) on 01/29/2022 10:22:48 AM Referred By: Thien Zimmer Confirmed By:JIMBO ROWLEY MD
[2022-01-25 12:40] LABS: Hematocrit 40.3 % (40-54); Hemoglobin 13.7 g/dL (13.0-16.5); Mean Corpuscular Hgb 31.2 pg (27.0-32.0); Mean Corpuscular Volume 91.8 fL (80-94); Mean Platelet Vol. 10.3 fl (6.2-12.0); Platelet Count 160 K/mm3 (150-450); RBC Distribution Width CV 13.7 % (11.6-14.6); RBC Distribution Width SD 46.5 fl (35.1-43.9); Red Blood Count 4.39 M/mm3 (4.6-6.2); White Blood Count 6.1 K/mm3 (4.4-11.0)
[2022-01-25 13:04] LABS: Anion Gap 6 (5-15); BUN 15 mg/dL (7-18); BUN/Creat Ratio 13.6 RATIO (10-20); Calcium,Total 8.9 mg/dL (8.5-10.1); Chloride 111 mmol/L (98-107); EST Glomerular Filtration Rate 69 mL/min (>60); Est Glom Filt Rate - Afr Amer 84 mL/min (>60); Glucose 99 mg/dL (74-106); Potassium 4.2 mmol/L (3.5-5.1); Sodium Level 143 mmol/L (136-145)
[2022-03-01 11:18] LABS: Hematocrit 41.9 % (40-54); Hemoglobin 14.1 g/dL (13.0-16.5); Mean Corp Hgb Conc 33.7 g/dL (32-36); Mean Corpuscular Hgb 31.1 pg (27.0-32.0); Mean Corpuscular Volume 92.5 fL (80-94); Mean Platelet Vol. 10.6 fl (6.2-12.0); Platelet Count 158 K/mm3 (150-450); RBC Distribution Width CV 14.1 % (11.6-14.6); RBC Distribution Width SD 48.2 fl (35.1-43.9); Red Blood Count 4.53 M/mm3 (4.6-6.2); White Blood Count 6.9 K/mm3 (4.4-11.0)
[2022-03-01 11:50] LABS: Anion Gap 4 (5-15); BUN 15 mg/dL (7-18); BUN/Creat Ratio 13.8 RATIO (10-20); Calcium,Total 8.7 mg/dL (8.5-10.1); Chloride 111 mmol/L (98-107); Creatinine, Serum 1.09 mg/dL (0.70-1.30); EST Glomerular Filtration Rate 70 mL/min (>60); Est Glom Filt Rate - Afr Amer 85 mL/min (>60); Estimated Creatinine Clearance 56.65 ml/min; Glucose 107 mg/dL (74-106); Potassium 3.9 mmol/L (3.5-5.1); Sodium Level 141 mmol/L (136-145)
[2022-03-07] VITALS (10 sets, daily range): BP systolic 126–177; BP diastolic 67–88; PULSE 46–75; RESP 16–18; TEMP 36.6–37.7; O2SAT 96–99; BMI 26.1
[2022-03-07] MEDS: Lactated Ringers 1,000 ML 15 ML IV (09:00)
--- NOTE | 2022-03-07 10:02 | HP.PCM_ITS ---
History and Physical Date of Admission: 03/07/22 Chief Complaint: Inguinal Hernia Rechecker Required: No Is patient in pain?: No Allergies No Known Allergies Allergy (Verified 02/19/22 13:56) Medications levothyroxine 50 mcg tablet 50 mcg PO DAILY 09/19/20 [History Confirmed 2] multivitamin 1 tab PO DAILY 09/19/20 [History Confirmed 02/19/22] rosuvastatin 10 mg tablet 10 mg PO DAILY 09/19/20 [History Confirmed 02/19/22] finasteride 1 mg tablet 1 mg PO DAILY 09/21/20 [History Confirmed 02/19/22] aspirin 81 mg tablet,delayed release (Adult Low Dose Aspirin) 81 mg PO DAILY #30 tabs 10/31/20 [Rx Confirmed 02/19/22] biotin 1,000 mcg chewable tablet 1,000 mcg PO DAILY 05/18/21 [History Confirmed 02/19/22] cholecalciferol (vitamin D3) 50 mcg (2,000 unit) capsule 25 mcg PO DAILY 12/31/21 [History Confirmed 02/19/22] melatonin 5 mg capsule 5 mg PO QHS PRN Sleep 12/31/21 [History Confirmed 02/19/22] clopidogrel 75 mg tablet (Plavix) 75 mg PO DAILY 01/24/22 [History Confirmed 02/19/22] metoprolol succinate 25 mg tablet,extended release 24 hr 25 mg PO 1500 01/24/22 [History Confirmed 02/19/22] amlodipine 5 mg tablet 5 mg PO DAILY #90 tabs 02/18/22 [Rx Confirmed 02/19/22] PFSH Medical History? Atherosclerotic heart disease of [place] coronary artery without angina pectoris Back pain Bladder disease Cardiology follow-up encounter Heartburn History of echocardiogram History of edema History of irregular heartbeat History of stress test Hypertension Hypothyroidism Leg cramps Non-smoker Palpitations Presence of stent in coronary artery (~12/26/20) Pure hypercholesterolemia Restless legs Shortness of breath on exertion Thin skin Thyroid disease Wears glasses Surgical History? History of cardiac catheterization History of cholecystectomy History of tonsillectomy and adenoidectomy History of vasectomy Presence of aortocoronary bypass graft Presence of coronary angioplasty implant and graft (~12/26/20) S/P PTCA (percutaneous transluminal coronary angioplasty) Family History? Father Heart disease HypertensionMother Heart disease HypertensionGrandmother DiabetesSister Cancer ?? ? lung Social History? Smoking Status:? Never smoker alcohol intake:? never substance use type:? does not use caffeine:? Yes Type: carbonated beverages Number of servings: 1 and coffee Number of servings: 1 HPI HPI Surgical H&P: Yes HPI: ANANDA WALLER, is a 77 M who presents to the office today for an update history and physical for an upcoming laparoscopic bilateral inguinal hernia repairs. Patient notes he has allergies every summer, which causes phlegm. He denies excessive sneezing or coughing. He notes intermittent discomfort at the hernia sites depending on activity. He denies recent change in bowel habits. He states he has no difficulties with urination. He states he follows with Dr. Bethea. He had a cardiac stent placed approximately 1 year ago. He is maintained on Plavix and ASA. He denies previous myocardial infarction, stroke or blood clots. He denies pulmonary history. Patient also has a subcutaneous mass in the right groin consistent with a lipoma, which will also be excised during the procedure. Patient's previous history per Dr. Zimmer: ANANDA WALLER, is a 76 M who presents to the office today for surgical consultation regarding a right inguinal hernia.? Patient is referred by Dr Mele Monroe and a written copy of my surgical consult recommendations will return to him.? 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 Yung Bethea.? The patient has coronary artery disease with a previous history of a drug-eluting stent to the ostial proximal and mid LAD on December 26, 2020.? He has a history of paroxysmal ventricular tachycardia.? Hypercholesterolemia.? Among his other medications he is on low-dose aspirin and clopidogrel in addition to rosuvastatin The patient notes discomfort intermittently right groin.? He always thought that this was simply some fibrofatty tissue.? He is now passed his 1 year alysha from his coronary stenting.? He is maintained on clopidogrel therapy.? He denies any current chest pain or shortness of breath.? Prior to his coronary stenting he just simply felt fatigued and weak.? He does not have the symptoms currently? ? ROS General General: No weight change, appetite, fatigue, colon cancer, breast cancer or weakness HEENT HEENT: No difficulty swallowing, eye injury, eye surgery, swollen glands or hoarseness Endo Endocrine: No thyroid disease, diabetes mellitus, thyroid cancer, Hair loss, heat intolerance or cold intolerance Skin Skin: No rash or changing moles Musc Musculoskeletal: No back problems, arthritis, rheumatoid arthritis, gout or joint pain Cardio Cardiovascular: Yes heart disease, high blood pressure and heart stent; No murmur, pacemaker, atrial fibrillation, heart attack, palpitations, shortness of breat with exertion or chest pain Psych Psychiatric: No depression, anxiety or hearing voices Resp Respiratory: No shortness of breath, No sleep apnea, No cough, No COPD, No asthma, No emphysema and No wheezing Gastro Gastrointestinal: Yes abdominal pain, No nausea or vomiting, No diarrhea, No constipation, No blood in stool, No acid reflux, Yes hemorrhoids, No ulcers, No gallbladder problem and No black,tarry stools Felix Hematologic: Yes blood thinners, No blood disorders, No bleeding, No anemia and No blood clots Neuro Neurologic: No system reviewed and no additional complaints, except as documented, No as per HPI, No abnormal gait, No abnormal hearing, No abnormal movements, No abnormal speech, No behavioral changes, No burning sensations, No confusion, No convulsions, No disequilibrium, No dizziness, No localized weakness, No frequent falls, No headache(s), No lack of coordination, No loss of vision, No memory loss, No numbness, No other visual disturbances, No radicular pain, No restless legs, No sensory deficit, No syncope, No tingling, No tremor(s), No weakness and No other Exam Const General: cooperative, healthy appearing, comfortable and no acute distress [facility] Head: normal to inspection Eyes General: appearance normal, both eyes and all related structures Neck Neck: normal visual inspection Neck mass: No Resp Effort & Inspection: normal respiratory effort Auscultation: clear to auscultation bilaterally Cardio Rate: regular rate Rhythm: regular rhythm GI Inspection: normal to inspection Palpation: soft and hernia (bilateral inguinal hernias. Right groin subcutaneous mass) Auscultation: normal bowel sounds Skin General: no rashes or lesions noted Neuro General: no focal motor deficits and CN's II-XI intact bilaterally Extrem General: normal to inspection Psych Appearance: grossly normal Affect: normal affect Assessment and Plan Assessment and Plan (1) Bilateral inguinal hernia without obstruction or gangrene: ?Status:?Acute ?Qualifiers: ?Recurrence:?non-recurrent? Qualified Code(s):?K40.20 - Bilateral inguinal hernia, without obstruction or gangrene, not specified as recurrent ?Plan: Dr. Zimmer will plan to perform a laparoscopic bilateral inguinal hernia repair with mesh possible laparoscopic removal of subcutaneous right groin mass. If removal of the subcutaneous mass can not be performed laparoscopic, an incision will be performed directly over top of the area to dissect the lipoma free. Procedure details, risks and benefits have been explained and reviewed. Patient has had the opportunity to ask and have questions answered. Patient verbally understands and agrees with the plan. Patient will hold Plavix 5 days prior to the procedure. (2) Lipoma: ?Status:?Acute ?Qualifiers: I have re-examined the patient. There are no clinical changes since date of exam. Thien Zimmer M.D., F.A.C.S.
[2022-03-07] MEDS: Cefazolin 2 GM in 0.9% Normal Saline 100 ML IV (10:45)
--- NOTE | 2022-03-07 10:50 | DCINST_ITS ---
Discharge Instructions Procedure General Surgery Diet Discharge Diet: Light diet - advance as tolerated (if you have questions about your diet instructions, please talk to you doctor.) Activity Discharge Activity: May Not Drive (for 3-5 days or while taking narcotic pain medicine.) May shower in (days): 1 Lifting Restrictions: 10 pounds Additional Activity Instructions:: You may resume your clopidogrel on Friday March 11, 2022 You may resume your low-dose aspirin barring any evidence of bleeding on Friday, March 10, 2022 Dressing / Incision Call your doctor if your incision/area has: Continuous Slow Oozing, Sudden Increased Bleeding, Increased Pain/ Swelling, Increased Redness and Foul Smelling Discharge Call your doctor if you observe: Fever of 101 or Higher Suture Line Care: Avoid Pulling/Pushing and Avoid Pinching/Bending Additional Dressing/Incision Instructions:: Change or remove dressing in 4 days. Leave steri-strips in place for 1 week. Follow Up Care Please Follow Up With: Thien Zimmer MD When: Call [phone] to make an appointment to be seen in about 10 days. Test Results: Test results from this visit will be discussed in further detail at your follow- up appointment, if applicable. Discharge Plan Admission Primary Reason for Your Visit: Bilateral inguinal hernias Attending Provider: Thien Zimmer Primary Care Provider: Mele Monroe Discharge Orders/Prescriptions Prescriptions: New hydrocodone-acetaminophen 5-325 mg tablet 1 tab PO Q6H PRN (Reason: pain) 2 Days Qty: 6 0RF Continued finasteride 1 mg tablet 1 mg PO DAILY aspirin [Adult Low Dose Aspirin] 81 mg tablet,delayed release (DR/EC) 81 mg PO DAILY Qty: 30 11RF biotin 1,000 mcg tablet,chewable 1,000 mcg PO DAILY cholecalciferol (vitamin D3) 50 mcg (2,000 unit) capsule 25 mcg PO DAILY melatonin 5 mg capsule 5 mg PO QHS PRN (Reason: Sleep) clopidogrel [Plavix] 75 mg Tablet 75 mg PO DAILY Label Comments: PT WILL STOP PLAVIX 03/02/[address] ZIMMER INSTRUCTIONS FOR SURGERY ON 03/07/22 metoprolol succinate 25 mg tablet extended release 24 hr 25 mg PO 1500 amlodipine 5 mg tablet 5 mg PO DINNER rosuvastatin 10 mg tablet 10 mg PO DAILY multivitamin Tablet 1 tab PO DAILY levothyroxine 50 mcg tablet 50 mcg PO QHS Referrals / Follow Up: Mele Monroe MD [Primary Care Provider] - Disposition Disposition (needs filled in before D/C Order can be placed): Home, Self Care
--- NOTE | 2022-03-07 11:00 | LIP_PTH ---
PATIENT: ANANDA WALLER [place] [facility] [id number] AGE/SX: 77/M ROOM: RE03/07/[address]: Dr. Thien Zimmer MD : [id number] BED: DIS: 03/07/2022 SPEC #: [id number] RECD: 03/07/22 15:36 STATUS: DODIE ANDREY #: [id number] CHRIS: 03/07/22 11:[address]: Thien Zimmer DEPT: SURGICAL PATHOLOGY RECD BY: Veronica Go ENTERED: 03/08/22 08:16 SP TYPE: LIPOMA OTHR DR: Dr. eMle Monroe MD Tissues: Soft tissues, NOS Procedures: Surgery Specimen Level III HEADER OPERATION: Laparoscopic bilateral inguinal hernia repair PRE-OP DIAGNOSIS: Bilateral inguinal hernia TISSUE SUBMITTED: Right groin lipoma 8 x 6 cm MICROSCOPIC DIAGNOSIS Right groin lipoma, excisional biopsy: Mature adipose tissue, consistent with lipoma. SJ:[email or web address] 03/11/2022 MICROSCOPIC DESCRIPTION Slides are reviewed. GROSS DESCRIPTION Received in fixative is one container labeled with the patient's name and designated right groin lipoma 8 x 6 cm. The specimen consists of a partially disrupted lobular piece of yellow adipose tissue measuring 8 x 6 x 3 cm. Sections reveal yellow adipose cut surfaces without area of hemorrhage, necrosis or cystic degeneration. Powder Room Attendant sections are submitted in three cassettes. / JOZEF:bernice 03/08/2022 TC:1 CPT:
[2022-03-07] MEDS: Bupivacaine 0.25% 30 ML Vial (11:14)
--- NOTE | 2022-03-07 12:44 | OP.PCM_ITS ---
Report of Operation Date of Procedure: 03/07/22 Pre-Operative Diagnosis: Bilateral inguinal hernias, right groin subcutaneous l ipoma Post-Operative Diagnosis: Bilateral direct and indirect inguinal hernias, umbilical hernia, right groin subcutaneous lipoma Surgery/Procedure Performed:: Laparoscopic bilateral inguinal herniorrhaphies with Bard 3D max extra-large mesh. Suture repair umbilical herniorrhaphy Excision right groin 8 x 6 cm subcutaneous lipoma Right Bard 3D max extra-large mesh lot number [id number], reference #[id number], expiry date 09/24/2026 Left Bard 3D max extra-large mesh Lot number [id number], reference #[id number], expiry date 09/24/2026 Secure strap Lot [id number] Description of Surgical Findings:: Timeout informed consent was obtained. 77-year-old gentleman was taken to the operating placed on the table underwent general endotracheal ovation anesthesia. Ancef 2 g were given intravenously. The abdomen scrotum was sterilely prepped and draped. 0.25% Marcaine was used as a local anesthetic. Throughout the proc edure a total of 30 cc was used. Skin sites were anesthetized. A vertical infraumbilical incision was created holding sutures of 0 Vicryl placed varies needle inserted single drop this performed the abdomen was insufflated with CO2 to a pressure of 10 mmHg pressure. 10 mm trocar was inserted. 10 mm laparoscope inserted. No evidence of any trocar injuries. 5 mm ports were placed in the right left lower quadrant and visualization. Bilateral ilioinguinal nerve blocks were performed with the Marcaine under laparoscopic visualization. The peritoneum superior right of the internal ring was incised carried medially and then the peritoneum on the right was completely dissected free. A small cord lipoma was dissected free on the right and this was kept internally. The direct and indirect inguinal hernias identified on the right. Dissection was performed cross the midline. A similar procedure was now performed on the left. The peritoneum was incised. There were some adhesions of the sigmoid colon to the peritoneum and the peritoneum had to be generously dissected free. Sharp blunt dissection was required. Gain visualization to the dissected area from the right. The pubic tubercle identified. The urinary bladder was reflected posteriorly. There was both direct and indirect hernias on the left as well. The right mesh was placed first and was extra-large Bard 3D max. Placed exposed to lie sufficiently laterally and then superiorly in the overlie the pubic ramus I secured it medially superiorly and laterally with secure strap. I then placed the mesh from the left again taking care to make sure it was appropriately placed laterally and then secured it in place there was overlap with the mesh from the right. I secured both meshes to the pubic ramus. Good positioning was achieved with good coverage of the double hernial defect areas bilaterally. I approximated the peritoneum to itself using combination of secure strap and Hem-o-cassandra clips. Complete obliteration of the mesh was achieved. The abdomen was allowed to deflate of the CO2. The fascial defect at the umbilicus was repaired with a awsbrd-gn-flgov suture of 0 Vicryl and so doing it became evident that there was a small umbilical hernia with fibrofatty tissue superior to this incision. I dissected that enough free to then put a licbgo-mx-cbxbc suture of [address] to close that defect. A transverse incision was made in the right groin and sharp dissection identified a large subcutaneous lipoma. This was circumferentially dissected free and excised with cautery and hemostasis attained with the same. It measured 8 x 6 cm. Hemostasis was intact. The subcutaneous tissues were approximate interrupted 3-0 Vicryl as were the subdermal tissues. Now for all skin edges they were approximated with either interrupted or running subicular 4-0 Monocryl. Steri-Strips Telfa OpSite dressings applied. Sponge and instrument and needle counts were reported to the surgeon to be correct. Specimen includes the right groin subcutaneous lipoma. Drains none. Blood loss minimal. The patient was taken to the recovery room in satisfactory addition without apparent complication Thien Zimmer M.D., F.A.C.S. Surgeon: Thien Zimmer Type of Anesthesia: General and Local Anesthesiologist: Lindsay Pérez
[2022-03-07] MEDS: HYDROcodone Bitartrate/Apap 5/325 Tablet PO (14:30)
== END 2022-03-07 16:33 | disposition home or self-care (01) ==
LOC: SDC 08:32 → AC 08:33
PROVIDERS: PCP Family Medicine; Referring Provider Surgery; Visit Provider Surgery
PROC: (CPT 49650; principal; 2022-03-07 10:40)
DX: K40.20 Bilateral inguinal hernia, without obstruction or gangrene, not specified as recurrent (principal); K42.9 Umbilical hernia without obstruction or gangrene; D17.6 Benign lipomatous neoplasm of spermatic cord; D17.1 Benign lipomatous neoplasm of skin and subcutaneous tissue of trunk; E78.00 Pure hypercholesterolemia, unspecified; I25.10 Atherosclerotic heart disease of native coronary artery without angina pectoris; I10 Essential (primary) hypertension; E03.9 Hypothyroidism, unspecified; Z95.5 Presence of coronary angioplasty implant and graft; Z95.1 Presence of aortocoronary bypass graft; Z79.82 Long term (current) use of aspirin; Z79.899 Other long term (current) drug therapy; Z79.01 Long term (current) use of anticoagulants
CPT/HCPCS: 49650; 49585; 11406; 00840; 36415; 80048; 85027; 88304; 93005; J7120; C1781; J2405

== ENCOUNTER → 2022-03-18 | Outpatient (CLI) | payer MEDICARE, SELFPAY ==
[2021-01-08 13:54] VITALS: BMI 24.3
[2022-03-18 14:32] LABS: Bacteria 0 SEEN /hpf (None Seen); Mucous, Urine 0 SEEN /hpf (<or=2+); Red Blood Cells-Urine 0 SEEN /hpf (0-5); Squamous Epithelial Cells - UA 0 SEEN /hpf (0-5); White Blood Cells 0 SEEN /hpf (0-5)
[2022-03-18 14:34] LABS: Color, Urine Straw (Yellow); Glucose, Dipstick Normal (Normal); Ketone-Dipstick Negative (Negative); Leukocyte Esterase-Dipstick Negative /ul (Negative); Nitrite-Dipstick Negative (Negative); Occult Blood-Urine Negative /ul (Negative); Protein-Dipstick Negative (Negative); Urine Bilirubin Dipstick Negative (Negative); Urine Clarity Clear (Clear); Urine Urobilinogen Normal (Normal)
== END | disposition home or self-care (01) ==
LOC: LABSPEC 13:48
PROVIDERS: Physician Assistant; PCP Family Medicine; Referring Provider Surgery; Visit Provider Surgery
DX: R30.0 Dysuria (principal); R53.83 Other fatigue
CPT/HCPCS: 81001; 87086

== ENCOUNTER → 2022-04-22 | Outpatient (CLI) | payer MEDICARE, SELFPAY ==
[2021-01-08 13:54] VITALS: BMI 24.3
[2022-04-22 17:08] LABS: Absolute Lymphocyte Count 1.79 X10^3/uL (0.83-4.51); Absolute Neutrophil Count 5.1 X10^3/uL (2.0-7.7); Basophil% 1.3 % (0-1); Eosinophil# 0.21 X10^3/uL; Eosinophils% 2.7 % (0-5); Hemoglobin 15.1 g/dL (13.0-16.5); Lymphocyte # 1.79 X10^3/ul (0.83-4.51); Lymphocyte % 22.8 % (19-41); Mean Corp Hgb Conc 34.3 g/dL (32-36); Mean Corpuscular Hgb 31.6 pg (27.0-32.0); Mean Corpuscular Volume 92.1 fL (80-94); Mean Platelet Vol. 10.2 fl (6.2-12.0); Monocyte# 0.65 X10^3/uL; Monocyte% 8.3 % (0-10); NRBC Flagged by Analyzer 0 % (0-5); Neutrophil # 5.06 X10^3/uL (2.7-7.7); Neutrophil % 64.4 % (47-70); Platelet Count 212 K/mm3 (150-450); RBC Distribution Width CV 13.4 % (11.6-14.6); RBC Distribution Width SD 45.4 fl (35.1-43.9); Red Blood Count 4.78 M/mm3 (4.6-6.2); White Blood Count 7.9 K/mm3 (4.4-11.0)
[2022-04-22 18:19] LABS: BNP,B-Type NATRIURETIC PEPTIDE 26.9 pg/mL (0-100)
[2022-04-22 18:38] LABS: Anion Gap 6 (5-15); BUN 13 mg/dL (7-18); BUN/Creat Ratio 12.5 RATIO (10-20); Calcium,Total 9.4 mg/dL (8.5-10.1); Chloride 110 mmol/L (98-107); Creatinine, Serum 1.04 mg/dL (0.70-1.30); EST Glomerular Filtration Rate 74 mL/min (>60); Est Glom Filt Rate - Afr Amer 90 mL/min (>60); Glucose 95 mg/dL (74-106); Magnesium 2.2 mg/dL (1.6-2.6); Potassium 4.1 mmol/L (3.5-5.1); Sodium Level 142 mmol/L (136-145); T4 Free Direct 0.99 ng/dL (0.76-1.46); Thyroid Stim Hormone (TSH) 2.98 uIU/mL (0.358-3.74)
== END | disposition home or self-care (01) ==
LOC: LAB 16:37
PROVIDERS: PCP Family Medicine; Referring Provider Nurse Practitioner Family; Visit Provider Nurse Practitioner Family
DX: R06.02 Shortness of breath (principal); R55 Syncope and collapse; R00.0 Tachycardia, unspecified; E03.9 Hypothyroidism, unspecified
CPT/HCPCS: 36415; 80048; 83735; 83880; 84439; 84443; 85025

== ENCOUNTER → 2022-05-01 | Outpatient (CLI) | payer MEDICARE, SELFPAY ==
[2021-01-08 13:54] VITALS: BMI 24.3
--- NOTE | 2022-05-01 09:26 | STRESSREP_ITS ---
Stress Test Report Date: 05-01-2022 Procedure: Exercise tolerance test/imaging study Indications: Shortness of breath/dyspnea; palpitations; CAD; status post PCI Consent: Per the patient Procedure: The patient exercised on a Munir protocol for 9 minutes completing Stage III achieving a peak heart rate of 150 bpm (103% predicted maximal heart rate) with resting blood pressure of 148/82 mmHg and a peak blood pressure 178/86 mmHg and a peak MET capacity of 10 METs. The baseline ECG demonstrated normal sinus rhythm. The peak exercise ECG demonstrated no obvious ECG changes. There was an isolated PVC during recovery. The functional capacity was considered good. There was no complaint of chest discomfort during exercise or recovery. The examination was discontinued secondary to dyspnea. Impression: 1. Technically adequate (percent predicted maximal heart rate greater than 85%) exercise tolerance test 2. Peak exercise ECG with no obvious ECG changes 3. There was an isolated PVC during recovery 4. Nuclear images pending Myocardial perfusion imaging study: Technique: The patient was injected with 11.9 mCi of technetium 99m Cardiolite and subsequently rest SPECT Cardiolite nuclear imaging was obtained in the horizontal long, vertical long, and short axis views. The patient exercised on a Munir protocol for 9 minutes completing Stage III achieving a peak heart rate of 150 bpm (103% predicted maximal heart rate) with resting blood pressure of 148/82 mmHg and a peak blood pressure 178/86 mmHg and a peak MET capacity of 10 METs. The patient was injected with 33.6 mCi of technetium 99m Cardiolite and subsequently stress SPECT Cardiolite nuclear imaging was obtained in the horizontal long, vertical long, and short axis views. A gated Cardiolite study at peak stress was obtained. Interpretation: Rest and stress SPECT Cardiolite nuclear imaging status post realignment, normalization, and attenuation correction, demonstrates the appearance of relative uniform tracer uptake and myocardial perfusion appearing within normal limits. There is end systolic thickening and brightening. The gated Cardiolite study demonstrates myocardial thickening and inward wall motion. The reported LVEF is 70%. Impression: 1. Rest and stress SPECT Cardiolite nuclear imaging demonstrate relative uniform tracer uptake and myocardial perfusion appearing within normal limits. 2. The gated Cardiolite study reports an LVEF of 70%. This note was generated with [employer]ation software. It may contain incorrect words, spelling, and punctuation that were not noted in checking the note before signing.
== END | disposition home or self-care (01) ==
LOC: CVS 06:15
PROVIDERS: PCP Family Medicine; Referring Provider Nurse Practitioner Family; Visit Provider Nurse Practitioner Family
DX: R06.09 Other forms of dyspnea (principal); I25.10 Atherosclerotic heart disease of native coronary artery without angina pectoris; R00.0 Tachycardia, unspecified; R55 Syncope and collapse; R06.02 Shortness of breath; Z95.5 Presence of coronary angioplasty implant and graft
CPT/HCPCS: 78452; 93017; 93225; 93226; A9500; A4216

== ENCOUNTER → 2022-06-13 | Outpatient (CLI) | payer MEDICARE, SELFPAY ==
[2021-01-08 13:54] VITALS: BMI 24.3
[2022-06-13 12:19] LABS: Absolute Lymphocyte Count 1.41 X10^3/uL (0.83-4.51); Absolute Neutrophil Count 4.1 X10^3/uL (2.0-7.7); Basophil# 0.07 X10^3/uL; Basophil% 1.1 % (0-1); Eosinophil# 0.22 X10^3/uL; Eosinophils% 3.4 % (0-5); Hematocrit 44.1 % (40-54); Hemoglobin 14.5 g/dL (13.0-16.5); Lymphocyte # 1.41 X10^3/ul (0.83-4.51); Lymphocyte % 21.9 % (19-41); Mean Corp Hgb Conc 32.9 g/dL (32-36); Mean Corpuscular Hgb 30.4 pg (27.0-32.0); Mean Corpuscular Volume 92.5 fL (80-94); Mean Platelet Vol. 10.8 fl (6.2-12.0); Monocyte# 0.62 X10^3/uL; Monocyte% 9.6 % (0-10); NRBC Flagged by Analyzer 0 % (0-5); Neutrophil # 4.11 X10^3/uL (2.7-7.7); Neutrophil % 63.7 % (47-70); Platelet Count 190 K/mm3 (150-450); RBC Distribution Width CV 14.2 % (11.6-14.6); RBC Distribution Width SD 48.7 fl (35.1-43.9); Red Blood Count 4.77 M/mm3 (4.6-6.2); White Blood Count 6.5 K/mm3 (4.4-11.0)
[2022-06-13 12:44] LABS: ALB/GLOB Ratio 1.1 RATIO (0.9-2.4); AST(SGOT) 19 U/L (15-37); Alanine Aminotransfer ALT/SGPT 39 U/L (16-61); Albumin, Serum 3.9 g/dL (3.2-5.0); Alkaline Phosphatase 68 U/L (45-117); Anion Gap 8 (5-15); BUN 13 mg/dL (7-18); BUN/Creat Ratio 12.7 RATIO (10-20); Calcium,Total 9.2 mg/dL (8.5-10.1); Chloride 110 mmol/L (98-107); Cholesterol 151 mg/dL (200); Creatinine, Serum 1.02 mg/dL (0.70-1.30); EST Glomerular Filtration Rate 76 mL/min (>60); Est Glom Filt Rate - Afr Amer 92 mL/min (>60); Globulin 3.5 g/dL (2.2-4.2); Glucose 101 mg/dL (74-106); High Density Lipoprotein 63 mg/dL; Potassium 4.4 mmol/L (3.5-5.1); Protein, Total 7.4 g/dL (6.4-8.2); Sodium Level 142 mmol/L (136-145); T4 Free Direct 0.96 ng/dL (0.76-1.46); Triglycerides 66 mg/dL; Very Low Density Lipoprotein 13 mg/dL (5-40)
== END | disposition home or self-care (01) ==
LOC: MFPLAB 10:14
PROVIDERS: PCP Family Medicine; Referring Provider Family Medicine; Visit Provider Family Medicine
DX: I10 Essential (primary) hypertension (principal); E03.9 Hypothyroidism, unspecified
CPT/HCPCS: 36415; 80053; 80061; 84439; 84443; 85025

== ENCOUNTER → 2022-06-17 | Outpatient (CLI) | payer MEDICARE, SELFPAY ==
[2021-01-08 13:54] VITALS: BMI 24.3
--- NOTE | 2022-06-17 09:42 | CDU_ITS ---
Reason For Study: DIZZINESS Rt. Velocities/BP Lt. Velocities/BP Prox CCA 88.1/19.2 cm/sec. Prox CCA 99.2/18.8 cm/sec. Mid CCA 89.1/21.1 cm/sec. Mid CCA 88.8/23.7 cm/sec. Dist CCA 90.0/23.9 cm/sec. Dist CCA 81.4/20.0 cm/sec. Prox ICA 71.8/16.8 cm/sec. Prox ICA 87.6/22.5 cm/sec. Mid ICA 63.0/17.9 cm/sec. Mid ICA 71.6/21.2 cm/sec. Dist ICA 77.3/22.3 cm/sec. Dist ICA 83.9/28.6 cm/sec. Rt. ICA/CCA = 0.9. Lt. ICA/CCA = 1.0. Prox ECA 110.1/18.8 cm/sec. Prox ECA 96.1/18.8 cm/sec. Rt. Vert. 49.8/11.3 cm/sec. Lt. Vert. 56.0/13.0 cm/sec. Right Extracranial There is intimal thickening but no significant atherosclerotic plaque noted in the right common carotid artery. There is heterogeneous, irregular atherosclerotic plaque noted in the right internal carotid artery. There is no significant atherosclerotic plaque noted in the right external carotid artery. Antegrade flow is noted in the right vertebral artery. Left Extracranial There is intimal thickening but no significant atherosclerotic plaque noted in the left common carotid artery. There is heterogeneous, irregular atherosclerotic plaque noted in the left internal carotid artery. There is no significant atherosclerotic plaque noted in the left external carotid artery. Antegrade flow is noted in the left vertebral artery. Procedure Carotid Duplex 31436. This is a Carotid Duplex examination using B-mode, color flow and specral Doppler. The exam was diagnostic. Exam performed in department. VL/Carotid Duplex Ultrasound Interpretation Summary Mild (<50%) stenosis right extracranial internal carotid. Mild (<50%) stenosis left extracranial internal carotid. Patent and antegrade vertebrals bilaterally. Ordering Physician: Mele Martinez Referring Physician: Mele Monroe Performed By: Sandro Grover RVT
== END | disposition home or self-care (01) ==
LOC: CVS 09:42
PROVIDERS: PCP Family Medicine; Referring Provider Nurse Practitioner Family; Visit Provider Nurse Practitioner Family
DX: I65.22 Occlusion and stenosis of left carotid artery (principal); R55 Syncope and collapse
CPT/HCPCS: 93880

== ENCOUNTER → 2022-12-10 | Outpatient (CLI) | payer MEDICARE, SELFPAY ==
[2021-01-08 13:54] VITALS: BMI 24.3
[2022-12-10 09:26] LABS: Bacteria 0 SEEN /hpf (None Seen); Mucous, Urine 0 SEEN /hpf (<or=2+); Red Blood Cells-Urine 0 SEEN /hpf (0-5); Squamous Epithelial Cells - UA 0 SEEN /hpf (0-5); White Blood Cells 0 SEEN /hpf (0-5)
[2022-12-10 10:29] LABS: Color, Urine Yellow (Yellow); Glucose, Dipstick Normal (Normal); Ketone-Dipstick Negative (Negative); Leukocyte Esterase-Dipstick Negative /ul (Negative); Nitrite-Dipstick Negative (Negative); Occult Blood-Urine 10 /ul (Negative); Protein-Dipstick Negative (Negative); Specific Gravity, Urine 1.015 (1.002-1.030); Urine Bilirubin Dipstick Negative (Negative); Urine Clarity Clear (Clear); Urine Urobilinogen Normal (Normal)
[2022-12-10 10:30] LABS: Absolute Lymphocyte Count 2.16 X10^3/uL (0.83-4.51); Absolute Neutrophil Count 5.2 X10^3/uL (2.0-7.7); Basophil# 0.04 X10^3/uL; Basophil% 0.5 % (0-1); Eosinophil# 0.26 X10^3/uL; Eosinophils% 3.1 % (0-5); Hemoglobin 14.8 g/dL (13.0-16.5); Lymphocyte # 2.16 X10^3/ul (0.83-4.51); Lymphocyte % 25.7 % (19-41); Mean Corp Hgb Conc 32.9 g/dL (32-36); Mean Corpuscular Hgb 30.8 pg (27.0-32.0); Mean Corpuscular Volume 93.8 fL (80-94); Mean Platelet Vol. 10.4 fl (6.2-12.0); Monocyte# 0.75 X10^3/uL; Monocyte% 8.9 % (0-10); NRBC Flagged by Analyzer 0 % (0-5); Neutrophil # 5.15 X10^3/uL (2.7-7.7); Neutrophil % 61.3 % (47-70); Platelet Count 173 K/mm3 (150-450); RBC Distribution Width CV 14.3 % (11.6-14.6); RBC Distribution Width SD 49.2 fl (35.1-43.9); White Blood Count 8.4 K/mm3 (4.4-11.0)
[2022-12-10 11:15] LABS: ALB/GLOB Ratio 1.2 RATIO (0.9-2.4); AST(SGOT) 13 U/L (15-37); Alanine Aminotransfer ALT/SGPT 34 U/L (16-61); Albumin, Serum 3.7 g/dL (3.2-5.0); Alkaline Phosphatase 58 U/L (45-117); Anion Gap 5 (5-15); BUN 14 mg/dL (7-18); BUN/Creat Ratio 13.3 RATIO (10-20); Calcium,Total 8.9 mg/dL (8.5-10.1); Chloride 112 mmol/L (98-107); Cholesterol 150 mg/dL (200); Creatinine, Serum 1.05 mg/dL (0.70-1.30); EST Glomerular Filtration Rate 73 mL/min (>60); Est Glom Filt Rate - Afr Amer 88 mL/min (>60); Globulin 3.1 g/dL (2.2-4.2); Glucose 102 mg/dL (74-106); High Density Lipoprotein 69 mg/dL; Potassium 4.3 mmol/L (3.5-5.1); Protein, Total 6.8 g/dL (6.4-8.2); Sodium Level 143 mmol/L (136-145); T4 Free Direct 1.14 ng/dL (0.76-1.46); Thyroid Stim Hormone (TSH) 2.42 uIU/mL (0.358-3.74); Triglycerides 83 mg/dL; Very Low Density Lipoprotein 17 mg/dL (5-40)
[2022-12-11 14:03] LABS: Hemoglobin A1c 5.7 % (3.8-5.6)
== END | disposition home or self-care (01) ==
LOC: MFPLAB 09:23
PROVIDERS: PCP Family Medicine; Referring Provider Family Medicine; Visit Provider Family Medicine
DX: R73.09 Other abnormal glucose (principal); I25.10 Atherosclerotic heart disease of native coronary artery without angina pectoris; E03.9 Hypothyroidism, unspecified
CPT/HCPCS: 36415; 80053; 80061; 81001; 83036; 84439; 84443; 85025

== ENCOUNTER → 2023-05-02 | Outpatient (CLI) | payer MEDICARE, SELFPAY ==
[2021-01-08 13:54] VITALS: BMI 24.3
--- NOTE | 2023-05-02 12:35 | RAD_ITS ---
STUDY: X-RAY - ACUTE ABDOMINAL SERIES REASON FOR EXAM: Male, 78 years old. Pain TECHNIQUE: Single view of the chest. Supine, and erect view(s) of the abdomen were obtained. COMPARISON: None. FINDINGS: Blunting of the left costal phrenic angle with the left basilar atelectasis. Normal size heart. Normal mediastinum and berhane. Normal visualized pulmonary arteries. There is atherosclerotic tortuosity of the aortic arch and descending thoracic aorta. Dilated central small bowel loops with air-fluid levels. A small amount of fecal material is seen throughout the colon. Early small bowel obstruction should be ruled out. The soft tissue structures of the abdomen and pelvis are unremarkable. Normal visualized osseous structures. RAD/Acute Abdomen Inc Chest IMPRESSION: Mildly dilated central small bowel loops with air-fluid levels. Radiographic follow-up is recommended. Early small bowel obstruction should be ruled out. Electronically Signed: Siva Duval MD at 13:42 EDT ,
[2023-05-02 15:40] LABS: ALB/GLOB Ratio 0.9 RATIO (0.9-2.4); AST(SGOT) 18 U/L (15-37); Alanine Aminotransfer ALT/SGPT 34 U/L (16-61); Albumin, Serum 4.2 g/dL (3.2-5.0); Alkaline Phosphatase 89 U/L (45-117); Anion Gap 9 (5-15); BUN 19 mg/dL (7-18); BUN/Creat Ratio 13.7 RATIO (10-20); Calcium,Total 9.9 mg/dL (8.5-10.1); Chloride 105 mmol/L (98-107); Creatinine, Serum 1.39 mg/dL (0.70-1.30); EST Glomerular Filtration Rate 53 mL/min (>60); Est Glom Filt Rate - Afr Amer 64 mL/min (>60); Globulin 4.5 g/dL (2.2-4.2); Glucose 115 mg/dL (74-106); Magnesium 2.6 mg/dL (1.6-2.6); Potassium 3.7 mmol/L (3.5-5.1); Protein, Total 8.7 g/dL (6.4-8.2); Sodium Level 137 mmol/L (136-145)
== END | disposition home or self-care (01) ==
LOC: MTLAB 12:35
PROVIDERS: PCP Family Medicine; Referring Provider Family Medicine; Visit Provider Family Medicine
DX: R10.9 Unspecified abdominal pain (principal); R19.7 Diarrhea, unspecified
CPT/HCPCS: 36415; 74022; 80053; 83735

== ENCOUNTER → 2023-05-03 | Outpatient (CLI) | payer MEDICARE, SELFPAY ==
[2021-01-08 13:54] VITALS: BMI 24.3
--- NOTE | 2023-05-03 09:27 | RAD_ITS ---
EXAM: XR ABDOMEN, 2 VIEWS AND XR CHEST, 1 VIEW CLINICAL INDICATION: Abdominal pain, abnormal test result TECHNIQUE: Frontal view of the chest, frontal view of the abdomen/pelvis and upright or decubitus view of the abdomen. COMPARISON: No relevant prior studies available. FINDINGS: CHEST: LUNGS AND PLEURAL SPACES: Blunting of the right costophrenic angle may be due to a small amount of fluid or pleural thickening. No pulmonary consolidation. HEART: Normal. Normal heart size. MEDIASTINUM: No mediastinal or hilar mass. ABDOMEN: INTRAPERITONEAL SPACE: No free air. GASTROINTESTINAL TRACT: Increasing dilatation with air-fluid levels within multiple small bowel loops suggestive of small bowel obstruction. ORGANS: Unremarkable as visualized. No organomegaly. No abnormal calcifications. TUBES, LINES AND DEVICES: None. BONES/JOINTS: No acute abnormality. SOFT TISSUES: No acute findings. RAD/Acute Abdomen Inc Chest IMPRESSION: Small bowel obstruction. Electronically Signed: Brian Randall MD at 11:16 EDT ,
[2023-05-03 11:40] LABS: Anion Gap 7 (5-15); BUN 16 mg/dL (7-18); BUN/Creat Ratio 13.2 RATIO (10-20); Calcium,Total 8.9 mg/dL (8.5-10.1); Chloride 107 mmol/L (98-107); Creatinine, Serum 1.21 mg/dL (0.70-1.30); EST Glomerular Filtration Rate 62 mL/min (>60); Est Glom Filt Rate - Afr Amer 75 mL/min (>60); Glucose 102 mg/dL (74-106); Potassium 4.1 mmol/L (3.5-5.1); Sodium Level 137 mmol/L (136-145)
== END | disposition home or self-care (01) ==
LOC: LAB 09:24
PROVIDERS: PCP Family Medicine; Visit Provider Family Medicine
DX: N28.9 Disorder of kidney and ureter, unspecified (principal); R10.9 Unspecified abdominal pain
CPT/HCPCS: 36415; 74022; 80048

== ENCOUNTER 2023-05-04 10:55 | Inpatient (IN) | payer MEDICARE, SELFPAY ==
[2021-01-08 13:54] VITALS: BMI 24.3
[2023-05-04 10:55] VITALS: BP 161/100; PULSE 107; RESP 20; TEMP 36.2; O2SAT 97; BMI 27.3
--- NOTE | 2023-05-04 11:07 | CT_ITS ---
STUDY: CT ABDOMEN AND PELVIS WITH CONTRAST REASON FOR EXAM: Male, 78 years old. Bowel Obstruction. PRIOR CHOLECYSTECTOMY AND HERNIA REPAIR RADIATION DOSAGE (If Supplied By Facility): CTDIvol = ( 13.33 ) mGy, DLP = ( 903.85 ) mGycm TECHNIQUE: IV 100mL Isovue-370 was administered. Transaxial images were obtained from the dome of the diaphragm to the symphysis pubis. Multiplanar coronal and sagittal images were reformatted. Individualized Dose Optimization Techniques Were Used For This CT. COMPARISON: Prior study dated: 02/04/2018. FINDINGS: Mild atelectatic changes or scarring in the lower lungs. The visualized portions of the heart are within normal limits. Coronary calcifications. 12 cm right lobe liver cyst increased in size since previous exam. Smaller cyst in the left lobe. There is non-visualization of the gallbladder, which may be secondary to either contraction or a prior cholecystectomy. Normal spleen. Normal pancreas. Normal bilateral adrenal glands. Simple bilateral renal cysts, the largest is in the left kidney measuring about 6.2 cm for which no further follow-up exam is needed. No evidence of hydronephrosis. Normal visualized stomach. Dilated fluid-filled proximal small bowel loops with normal in caliber distal small bowel loops. There is a transitional zone in the right lower quadrant. Diverticulosis of the sigmoid and descending colon without evidence of acute diverticulitis. The colon is not well distended. The appendix is not definitely identified. There is diffuse atherosclerotic calcification of the abdominal aorta, without a demonstrated aneurysm. No retroperitoneal adenopathy. Normal urinary bladder. Mild free fluid in the pelvis. Mild bilateral inguinal hernias containing fat. There are diffuse degenerative changes of the visualized lumbar spine. CT/Abdomen/Pelvis W IV Cont ONLY IMPRESSION: 1. Dilated fluid-filled small bowel loops with normal caliber distal ileal loops concerning for distal small bowel obstruction. 2. Free fluid in the pelvis abnormal for a male patient. 3. Diverticulosis without evidence of acute diverticulitis. 4. Large simple liver cysts increased in size and previous exam. 5. Nonvisualization of the appendix. Electronically Signed: Bennie Birmingham MD at 13:44 EDT ,
--- NOTE | 2023-05-04 11:08 | ED.VIS.GI ---
HPI HPI - GI History of Present Illness Chief Complaint: Abd Pain Narrative Narrative: 78-year-old male, past medical history of hypertension presents with suspected small bowel obstruction on x-ray. He relates history that he started having upper respiratory infection type symptoms on Friday of last week, approximately 8 days ago. He started to develop diarrhea on , into Friday morning. He saw his primary care provider, Dr. Monroe, and had x-rays of the abdomen which showed enteritis versus early small bowel obstruction. He was seen again yesterday and had an outpatient x-ray repeated which may have been read as small bowel obstruction. He received a call from his primary care provider to report to the emergency department. He is describing abdominal distention and bloating and pain diffusely across his abdomen. States he has not had a bowel movement since Friday, 2 days ago. He denies any fevers or chills but presents mainly for small bowel obstruction rule out. [facility] Medical History Atherosclerotic heart disease of [place] coronary artery without angina pectoris Back pain Bladder disease Cardiology follow-up encounter Dysuria Heartburn History of echocardiogram History of edema History of irregular heartbeat History of stress test Hypertension Hypothyroidism Leg cramps Non-smoker Palpitations Presence of stent in coronary artery (~12/26/20) Pure hypercholesterolemia Restless legs Seasonal allergies Shortness of breath on exertion Thin skin Thyroid disease Wears glasses Home Medications levothyroxine 50 mcg tablet 50 mcg PO QHS 09/19/20 [History Last Taken Unknown] multivitamin 1 tab PO DAILY 09/19/20 [History Last Taken Unknown] rosuvastatin 10 mg tablet 10 mg PO DAILY 09/19/20 [History Last Taken Unknown] finasteride 1 mg tablet 1 mg PO DAILY BPH 09/21/20 [History Last Taken Unknown] aspirin 81 mg tablet,delayed release (Adult Low Dose Aspirin) 81 mg PO DAILY #30 tabs 10/31/20 [Rx Last Taken 12/26/20] biotin 1,000 mcg chewable tablet 1,000 mcg PO DAILY 05/18/21 [History Last Taken Unknown] melatonin 5 mg capsule 5 mg PO QHS PRN Sleep 12/31/21 [History Last Taken Unknown] amlodipine 5 mg tablet 5 mg PO DINNER 02/28/22 [History Last Taken Unknown] cholecalciferol (vitamin D3) 25 mcg (1,000 unit) tablet 25 mcg PO DAILY 04/22/22 [History Last Taken Unknown] metoprolol succinate 25 mg tablet,extended release 24 hr 25 mg PO DAILY #90 tabs 09/16/22 [Rx Last Taken Unknown] Allergy/AdvReac Type Severity Reaction Status Date / Time No Known Allergies Allergy Verified 05/04/23 11:50 Family History Father Heart disease Hypertension Mother Heart disease Hypertension Grandmother Diabetes Sister Cancer lung Surgical History History of bilateral inguinal hernia repair History of cardiac catheterization History of cholecystectomy History of tonsillectomy and adenoidectomy History of vasectomy Presence of aortocoronary bypass graft Presence of coronary angioplasty implant and graft (~12/26/20) S/P PTCA (percutaneous transluminal coronary angioplasty) Social History Smoking Status: Never smoker alcohol intake: never substance use type: does not use caffeine: Yes Type: carbonated beverages Number of servings: 1 and coffee Number of servings: 1 ROS ROS ED ROS Narrative Constitutional: No fever, no chills. HEENT: No sore throat. No neck pain. No loss of vision. No rhinorrhea. Cardiovascular: No chest pain. No palpitations. No pedal edema. Respiratory: No cough, no shortness of breath. Abdominal: Positive abdominal bloating and abdominal pain. No nausea. No vomiting. No bowel movement since Friday. Had diarrhea prior. Genitourinary: No dysuria. No hematuria. Musculoskeletal: No myalgias. No arthralgias. Neurologic: No headaches. No dizziness. No lightheadedness. Skin: No rash. No change in color. Psychiatric: No depression. No anxiety. EXAM Physical Exam Narrative Exam Narrative: Afebrile. Vital signs noted. HEENT: Normocephalic. Atraumatic. PERRL, EOMI. Neck soft and supple. No point tenderness or step off. Cardiovascular: Regular rate and rhythm. No murmurs, rubs, or gallops appreciated. Respiratory: No tachypnea. Lungs clear to auscultation bilaterally. Gastrointestinal: Abdomen soft, mildly distended with diffuse tenderness, with positive bowel sounds. No rebound or guarding. Neurological: Awake. Alert. Nonfocal, nonlateralizing. Skin: No rash. Normal color. No pallor. Musculoskeletal: No pedal edema. Full range of motion extremities. Const Vital Signs: 05/04/23 10:55 Temperature 97.2 F L Temperature Source Temporal Pulse Rate 107 H Respiratory Rate 20 H Blood Pressure 161/100 H Blood Pressure Mean 120 Pulse Ox 97 MDM MDM MDM Narrative Medical decision making narrative: The top of the differential is small bowel obstruction as he has had prior surgeries including hernia repairs and cholecystectomy. Additionally, he may have enteritis or diverticulitis given his reported diarrhea and now obstipation. However, these are lower on the differential. Comprehensive work-up was pursued. He declined any antinausea or pain medications currently. I will obtain a CBC, CMP, and lipase, and obtain CT imaging with IV contrast of the abdomen and pelvis to help rule out bowel obstruction and/or perforation. I reviewed the patient's laboratory work, he has normal white count of 10.4, hemoglobin normal at 14.8, hematocrit 44.3, platelet count normal at 195. CMP is grossly unremarkable except for glucose appropriately elevated at 118 with a normal anion gap of 7, AST is low at 12 with normal ALT of 24, alk phos normal at 75. Sodium and potassium are normal. On my interpretation of his CT of the abdomen and pelvis there are air-fluid levels noted consistent with small bowel obstruction. I reviewed the radiology report which comments on a normal visualized stomach, no distention, but there is a transition point of a small bowel obstruction in the right lower quadrant of the abdomen. While I informed the patient of the delay in the CT scan read, he is resting comfortably, doing a crossword puzzle. He declined antiemetics and analgesia again. I discussed patient with Dr. Dick with general surgery who states that without distention of the stomach, that we could forego the NG tube placement. He also requested that the hospitalist admit the patient. I discussed the patient with Dr. Goyal who will admit the patient to medical surgical floor. Disposition is admit in stable condition. History & Record Review Discussion w/independent historian: Patient Additional record(s) reviewed:: Prior ED visit Lab Data Attestation: I reviewed the patient's lab results. Labs: Laboratory Results - last 24 hr 05/04/23 11:21 WBC 10.4 RBC 4.92 Hgb 14.8 Hct 44.3 MCV 90.0 MCH 30.1 MCHC 33.4 RDW Std Deviation 44.9 H RDW Coeff of Jong 13.3 Plt Count 195 MPV 9.7 Immature Gran % (Auto) 0.300 Neut % (Auto) 76.5 H Lymph % (Auto) 10.4 L [place] % (Auto) 11.1 H Eos % (Auto) 1.3 Baso % (Auto) 0.4 Absolute Neuts (auto) 7.9 H Absolute Lymphs (auto) 1.08 Nucleated RBC % 0 Sodium 138 Potassium 4.0 Chloride 106 Carbon Dioxide 25.0 Anion Gap 7 BUN 13 Creatinine 1.08 Estim Creat Clear Calc 56.30 Est GFR (MDRD) Af Amer 85 Est GFR (MDRD) Non-Af 71 BUN/Creatinine Ratio 12.0 Glucose 118 H Calcium 9.0 Total Bilirubin 0.70 AST 12 L ALT 24 Alkaline Phosphatase 75 Total Protein 7.3 Albumin 3.5 Globulin 3.8 Albumin/Globulin Ratio 0.9 Lipase 22 Radiography Diagnostic Testing: Clinical Impression(s) from Imaging Studies Abdomen/Pelvis CT 05/04/23 11:07 IMPRESSION: 1. Dilated fluid-filled small bowel loops with normal caliber distal ileal loops concerning for distal small bowel obstruction. 2. Free fluid in the pelvis abnormal for a male patient. 3. Diverticulosis without evidence of acute diverticulitis. 4. Large simple liver cysts increased in size and previous exam. 5. Nonvisualization of the appendix. Electronically Signed: Bennie Birmingham MD at 13:44 EDT , Discharge Plan Dx/Rx/DC Orders Clinical Impression: Diarrhea, Small bowel obstruction, Abdominal pain Disposition Disposition: Acute Care Hospital [facility]
[2023-05-04 11:37] LABS: Absolute Lymphocyte Count 1.08 X10^3/uL (0.83-4.51); Absolute Neutrophil Count 7.9 X10^3/uL (2.0-7.7); Basophil# 0.04 X10^3/uL; Basophil% 0.4 % (0-1); Eosinophil# 0.13 X10^3/uL; Eosinophils% 1.3 % (0-5); Hematocrit 44.3 % (40-54); Hemoglobin 14.8 g/dL (13.0-16.5); Lymphocyte # 1.08 X10^3/ul (0.83-4.51); Lymphocyte % 10.4 % (19-41); Mean Corp Hgb Conc 33.4 g/dL (32-36); Mean Corpuscular Hgb 30.1 pg (27.0-32.0); Mean Platelet Vol. 9.7 fl (6.2-12.0); Monocyte# 1.15 X10^3/uL; Monocyte% 11.1 % (0-10); NRBC Flagged by Analyzer 0 % (0-5); Neutrophil # 7.93 X10^3/uL (2.7-7.7); Neutrophil % 76.5 % (47-70); Platelet Count 195 K/mm3 (150-450); RBC Distribution Width CV 13.3 % (11.6-14.6); RBC Distribution Width SD 44.9 fl (35.1-43.9); Red Blood Count 4.92 M/mm3 (4.6-6.2); White Blood Count 10.4 K/mm3 (4.4-11.0)
[2023-05-04 11:43] LABS: ALB/GLOB Ratio 0.9 RATIO (0.9-2.4); AST(SGOT) 12 U/L (15-37); Alanine Aminotransfer ALT/SGPT 24 U/L (16-61); Albumin, Serum 3.5 g/dL (3.2-5.0); Alkaline Phosphatase 75 U/L (45-117); Anion Gap 7 (5-15); BUN 13 mg/dL (7-18); Chloride 106 mmol/L (98-107); Creatinine, Serum 1.08 mg/dL (0.70-1.30); EST Glomerular Filtration Rate 71 mL/min (>60); Est Glom Filt Rate - Afr Amer 85 mL/min (>60); Globulin 3.8 g/dL (2.2-4.2); Glucose 118 mg/dL (74-106); Lipase 22 U/L (13-75); Protein, Total 7.3 g/dL (6.4-8.2); Sodium Level 138 mmol/L (136-145)
[2023-05-04] MEDS: 0.9% Normal Saline (1000mL) 1,000 ML 1000 ML IV (11:50)
--- NOTE | 2023-05-04 14:11 | HP.PCM_ITS ---
HPI - General General Date of Admission: 05/04/23 Date of Service: 05/04/23 Chief Complaint: abdominal pain and distension HPI Narrative ANANDA WALLER, is a 78 M with a past medical history as outlined which includes CAD s/p stents who presents via the ED on 05/04/2023 with complaint of abdominal pain and distention which had been going on for about 3 days. Patient said he had some diarrhea about 3 days ago and then his symptoms started. He rated the pain about 4/10 but noticed that his abdomen was gradually becoming distended. He went to see his PCP and imaging was done which showed evidence of bowel obstruction so he was told to come into the ED today. He denied any nausea or vomiting and though he has not had any bowel movement since 3 days ago, he is passing gas. He had passed gas on the day of admission. He denied any fever or chills, palpitations, nausea vomiting or any other symptoms. He has a history of inguinal hernia surgery in March 2022. Vitals in the ED were blood pressure 161/100, pulse rate of 107, respiratory rate of 20 and temperature of 97.2 Fahrenheit. He was saturating at 97% on room air. CBC and BMP were unremarkable. CT of the abdomen and pelvis showed dilated fluid-filled small bowel loops with normal caliber in the distal ileal loops concerning for distal small bowel obstruction and free fluid in the pelvis abnormal for male patient as well as diverticulosis without evidence of acute diverticulitis and simple large liver cystes which had increased in size since previous exam, with nonvisualisation of the appendix. He is being admitted to be managed for small bowel obstruction [facility] Medical History Atherosclerotic heart disease of [place] coronary artery without angina pectoris Back pain Bladder disease Cardiology follow-up encounter Dysuria Heartburn History of echocardiogram History of edema History of irregular heartbeat History of stress test Hypertension Hypothyroidism Leg cramps Non-smoker Palpitations Presence of stent in coronary artery (~12/26/20) Pure hypercholesterolemia Restless legs Seasonal allergies Shortness of breath on exertion Thin skin Thyroid disease Wears glasses Home Medications levothyroxine 50 mcg tablet 50 mcg PO QHS 09/19/20 [History Last Taken Unknown] multivitamin 1 tab PO DAILY 09/19/20 [History Last Taken Unknown] rosuvastatin 10 mg tablet 10 mg PO DAILY 09/19/20 [History Last Taken Unknown] finasteride 1 mg tablet 1 mg PO DAILY BPH 09/21/20 [History Last Taken Unknown] aspirin 81 mg tablet,delayed release (Adult Low Dose Aspirin) 81 mg PO DAILY #30 tabs 10/31/20 [Rx Last Taken 12/26/20] biotin 1,000 mcg chewable tablet 1,000 mcg PO DAILY 05/18/21 [History Last Taken Unknown] melatonin 5 mg capsule 5 mg PO QHS PRN Sleep 12/31/21 [History Last Taken Unknown] amlodipine 5 mg tablet 5 mg PO DINNER 02/28/22 [History Last Taken Unknown] cholecalciferol (vitamin D3) 25 mcg (1,000 unit) tablet 25 mcg PO DAILY 04/22/22 [History Last Taken Unknown] metoprolol succinate 25 mg tablet,extended release 24 hr 25 mg PO DAILY #90 tabs 09/16/22 [Rx Last Taken Unknown] Allergy/AdvReac Type Severity Reaction Status Date / Time No Known Allergies Allergy Verified 05/04/23 11:50 Family History Father Heart disease Hypertension Mother Heart disease Hypertension Grandmother Diabetes Sister Cancer lung Surgical History History of bilateral inguinal hernia repair History of cardiac catheterization History of cholecystectomy History of tonsillectomy and adenoidectomy History of vasectomy Presence of aortocoronary bypass graft Presence of coronary angioplasty implant and graft (~12/26/20) S/P PTCA (percutaneous transluminal coronary angioplasty) Social History Smoking Status: Never smoker alcohol intake: never substance use type: does not use caffeine: Yes Type: carbonated beverages Number of servings: 1 and coffee Number of servings: 1 ROS Constitutional Constitutional: Denies anorexia, chills, fatigue, fever(s), malaise or weakness Eyes Eyes: Denies change in vision ENT HEENT: Denies dysphagia, headache(s), sore throat or throat swelling Cardiovascular Cardiovascular: Denies chest pain, edema, orthopnea or palpitations Respiratory/Chest Respiratory/Chest: Denies shortness of breath at rest or shortness of breath with exertion Gastrointestinal Gastrointestinal: Reports abdominal pain; Denies constipation, diarrhea, dyspepsia, hematemesis, hematochezia, melena, nausea or vomiting Genitourinary Genitourinary: Denies dysuria, nocturia, urinary hesitancy or urinary incontinence Musculoskeletal Musculoskeletal: Denies joint pain or muscle weakness Integumentary Integumentary: Denies dry skin or jaundice Neurologic Neurologic: Denies confusion, dizziness, focal weakness, headache(s), numbness or seizures Psychiatric Psychiatric: Denies anxiety or depression Vital Signs Vital Signs Vital Signs: 05/04/23 10:55 Temperature 97.2 F L Temperature Source Temporal Pulse Rate 107 H Respiratory Rate 20 H Blood Pressure 161/100 H Blood Pressure Mean 120 Pulse Ox 97 Weight Weight: 179 lb 11.2 oz Body Mass Index (BMI) 27.3 Physical Exam Const alert, oriented x3 and no apparent distress General Appearance: cooperative HEENT normocephalic, head/scalp atraumatic, moist oral mucous membranes and oropharynx normal Eyes PERRL and EOMs intact bilaterally Neck no lymphadenopathy and supple Lymph Lymphatic: no lymphadenopathy noted and no lymphedema noted Resp normal respiratory effort, normal air movement and clear to auscultation bilaterally Cardio regular rate, regular rhythm, S1 normal heart sound, S2 normal heart sound and no murmurs GI GI Narrative: abdomen moderately distended, mild tenderness, tympanitic to percussion, no organomegaly Extremity normal capillary refill, no clubbing, cyanosis or edema and no calf tenderness General Extremity: no tenderness to palpation of joints or extremities Skin General Skin Exam: no breakdown Neuro CN's II-XII intact bilaterally, no focal motor deficits, no sensory deficits noted and deep tendon reflexes 2+ bilaterally Motor Exam: strength 5/5 throughout Psych thought process normal, cooperative and affect normal Appearance: appropriate Results Lab / Micro Data 05/04/23 11:21 05/04/23 11:21 Labs: Laboratory Results - last 24 hr 05/04/23 11:21: WBC 10.4, RBC 4.92, Hgb 14.8, Hct 44.3, MCV 90.0, MCH 30.1, MCHC 33.4, RDW Std Deviation 44.9 H, RDW Coeff of Jong 13.3, Plt Count 195, MPV 9.7, Immature Gran % (Auto) 0.300, Neut % (Auto) 76.5 H, Lymph % (Auto) 10.4 L, [place] % (Auto) 11.1 H, Eos % (Auto) 1.3, Baso % (Auto) 0.4, Absolute Neuts (auto) 7.9 H, Absolute Lymphs (auto) 1.08, Nucleated RBC % 0, Sodium 138, Potassium 4.0, Chloride 106, Carbon Dioxide 25.0, Anion Gap 7, BUN 13, Creatinine 1.08, Estim Creat Clear Calc 56.30, Est GFR (MDRD) Af Amer 85, Est GFR (MDRD) Non-Af 71, BUN/Creatinine Ratio 12.0, Glucose 118 H, Calcium 9.0, Total Bilirubin 0.70, AST 12 L, ALT 24, Alkaline Phosphatase 75, Total Protein 7.3, Albumin 3.5, Globulin 3.8, Albumin/Globulin Ratio 0.9, Lipase 22 Radiology Impression Abdomen/Pelvis CT 05/04/23 11:07 IMPRESSION: 1. Dilated fluid-filled small bowel loops with normal caliber distal ileal loops concerning for distal small bowel obstruction. 2. Free fluid in the pelvis abnormal for a male patient. 3. Diverticulosis without evidence of acute diverticulitis. 4. Large simple liver cysts increased in size and previous exam. 5. Nonvisualization of the appendix. Electronically Signed: Bennie Birmingham MD at 13:44 EDT , Assessment & Plan Assessment/Plan (1) Small bowel obstruction: PLAN: Plan #Small bowel obstruction * Admitted with a complaint of abdominal pain and abdominal distention for about 3 days. He is passing gas. * CT of the abdomen and pelvis showed dilated small bowel loops which were fluid-filled, with normal caliber distal ileal loops concerning for distal small bowel obstruction. She also had free fluid in the pelvis abnormal for male patient and diverticulosis without evidence of diverticulitis as well as large simple liver cyst which had increased in size than previous exam with nonvisualization of the appendix. * Keep NPO. Admit to [facility] 3. * Hydrate gently with IV fluids normal saline at 125 cc/h. * Consult general surgery. * We will hold off on inserting NG tube now since he is not having any nausea or vomiting. * He does have a history of inguinal hernia surgeries and states he had abnormal hernia surgery last year. He is also had gallbladder surgery. * #History of CAD s/p stents: Stent was inserted in 2020. On aspirin and high intensity statin #Hypertension: On amlodipine and metoprolol. #Hyperlipidemia: On statin #Hypothyroidism: On Synthroid DVT prophylaxis: Lovenox CODE STATUS: * Patient and his counseled extensively about different types of CODE STATUS including full code, DNR CCA and DNR CCA. Patient elects to be full code. * Total [id number] time 17 minutes. Charges/Coding Visit Charges Inpatient E&M: 10903 Init Hosp L3 Procedures Hospitalists Procedures: 23713 Advncd Care Plan 30 Min
[2023-05-04 15:15] VITALS: BMI 26.9
[2023-05-04 15:21] VITALS: BP 158/91; PULSE 89; RESP 16; TEMP 36.6; O2SAT 97
[2023-05-04] MEDS: 0.9% Normal Saline (1000mL) 1,000 ML 125 ML IV ×2 (15:45→23:32)
[2023-05-04 21:04] VITALS: BP 144/74; PULSE 81; RESP 16; TEMP 37.7; O2SAT 97
[2023-05-05 01:23] VITALS: BP 147/79; PULSE 80; RESP 18; TEMP 37.6; O2SAT 93
[2023-05-05 05:28] VITALS: BP 156/84; PULSE 96; RESP 16; TEMP 37.6; O2SAT 93
[2023-05-05 07:21] LABS: Absolute Lymphocyte Count 1.28 X10^3/uL (0.83-4.51); Absolute Neutrophil Count 8.2 X10^3/uL (2.0-7.7); Basophil# 0.05 X10^3/uL; Basophil% 0.5 % (0-1); Eosinophil# 0.08 X10^3/uL; Eosinophils% 0.7 % (0-5); Hemoglobin 14.1 g/dL (13.0-16.5); Lymphocyte # 1.28 X10^3/ul (0.83-4.51); Lymphocyte % 11.7 % (19-41); Mean Corp Hgb Conc 34.4 g/dL (32-36); Mean Corpuscular Hgb 31.2 pg (27.0-32.0); Mean Corpuscular Volume 90.7 fL (80-94); Mean Platelet Vol. 9.7 fl (6.2-12.0); Monocyte# 1.26 X10^3/uL; Monocyte% 11.6 % (0-10); NRBC Flagged by Analyzer 0 % (0-5); Neutrophil % 75.2 % (47-70); Platelet Count 186 K/mm3 (150-450); RBC Distribution Width CV 13.5 % (11.6-14.6); RBC Distribution Width SD 45.2 fl (35.1-43.9); Red Blood Count 4.52 M/mm3 (4.6-6.2); White Blood Count 10.9 K/mm3 (4.4-11.0)
[2023-05-05 07:50] LABS: Anion Gap 12 (5-15); BUN 13 mg/dL (7-18); BUN/Creat Ratio 13.5 RATIO (10-20); Calcium,Total 8.6 mg/dL (8.5-10.1); Chloride 110 mmol/L (98-107); Creatinine, Serum 0.96 mg/dL (0.70-1.30); EST Glomerular Filtration Rate 81 mL/min (>60); Est Glom Filt Rate - Afr Amer 98 mL/min (>60); Estimated Creatinine Clearance 63.33 ml/min; Glucose 81 mg/dL (74-106); Potassium 3.8 mmol/L (3.5-5.1); Sodium Level 140 mmol/L (136-145)
--- NOTE | 2023-05-05 07:56 | PN.HOSP_ITS ---
Reason for Visit Reason for Visit: Abdominal pain and distention Subjective Subjective Mr. Cunningham is an 78-year-old white male who presented to the emergency d epartment at [facility] on 05/04/2023 complaining of abdominal pain and abdominal distention that had been progressively worsening for about 3 days. He reported he had some diarrhea about 3 days prior to presentation which is symptoms started. He was rating his pain at about 4 out of 10 and reported his distention was gradually worsening. He went to see his primary care physician and imaging was performed which showed some evidence of bowel obstruction so he was told to come the emergency department. He denied any nausea or vomiting but reported he had not had a bowel movement in the last 3 days. He was reporting flatus however. He denied fever or chills. Vital signs on presentation were overall unremarkable. His CBC and BMP were overall unremarkable. CT of the abdomen pelvis showed dilated fluid-filled small bowel loops with normal caliber distal ileal loops concerning for distal small bowel obstruction and free fluid in the pelvis which was abnormal for male patient. Diverticulosis without diverticulitis was also noted and a simple large liver cyst was identified. He was admitted to the medical floor and treated conservatively for bowel obstruction. He was placed on IV pain medication, IV fluids, and IV antiemetics as needed. He does have a history of abdominal surgeries including bilateral inguinal hernia repair, cholecystectomy and has had history of CABG. He is n.p.o. and general surgery has been consulted. NG was not placed as he was not having any nausea or vomiting and was passing some flatus. Patient notes that he had a bowel movement of liquid stool last night and was having diarrhea prior to coming in. Given that I will check a C. difficile. He is also had some upper respiratory type symptoms for about the last 5 days. COVID and respiratory viral panel were obtained and both were negative. Small bowel follow-through is pending per general surgery. There was documented transition in the right lower quadrant and the patient has had a laparoscopic inguinal hernia repair in the past. He has no nausea or vomiting. He complains of some mild left-sided abdominal pain. Objective Data Objective Data Vital Signs: Vital Signs Temp Pulse Resp BP Pulse Ox O2 Del Method 99.7 F H 96 16 156/84 H 93 Room Air 05/05/23 05:28 05/05/23 05:28 05/05/23 05:28 05/05/23 05:28 05/05/23 05:28 05/05/23 05:35 Oxygen Delivery Method Room Air Weight: 80.2 kg Body Mass Index (BMI) 26.9 Intake & Output: Intake and Output for Last 24 Hours 05/03/23 05/04/23 05/05/23 23:59 23:59 23:59 Intake Total 1000 / 1000 Balance 1000 / 1000 Lab / Micro Data 05/05/23 07:10 05/05/23 07:10 Labs: Laboratory Results - last 24 hr 05/04/23 11:21: WBC 10.4, RBC 4.92, Hgb 14.8, Hct 44.3, MCV 90.0, MCH 30.1, MCHC 33.4, RDW Std Deviation 44.9 H, RDW Coeff of Jong 13.3, Plt Count 195, MPV 9.7, Immature Gran % (Auto) 0.300, Neut % (Auto) 76.5 H, Lymph % (Auto) 10.4 L, Ashley % (Auto) 11.1 H, Eos % (Auto) 1.3, Baso % (Auto) 0.4, Absolute Neuts (auto) 7.9 H, Absolute Lymphs (auto) 1.08, Nucleated RBC % 0, Sodium 138, Potassium 4.0, Chloride 106, Carbon Dioxide 25.0, Anion Gap 7, BUN 13, Creatinine 1.08, Estim Creat Clear Calc 56.30, Est GFR (MDRD) Af Amer 85, Est GFR (MDRD) Non-Af 71, BUN/Creatinine Ratio 12.0, Glucose 118 H, Calcium 9.0, Total Bilirubin 0.70, AST 12 L, ALT 24, Alkaline Phosphatase 75, Total Protein 7.3, Albumin 3.5, Globulin 3.8, Albumin/Globulin Ratio 0.9, Lipase 22 05/05/23 07:10: WBC 10.9, RBC 4.52 L, Hgb 14.1, Hct 41.0, MCV 90.7, MCH 31.2, MCHC 34.4, RDW Std Deviation 45.2 H, RDW Coeff of Jong 13.5, Plt Count 186, MPV 9.7, Immature Gran % (Auto) 0.300, Neut % (Auto) 75.2 H, Lymph % (Auto) 11.7 L, Ashley % (Auto) 11.6 H, Eos % (Auto) 0.7, Baso % (Auto) 0.5, Absolute Neuts (auto) 8.2 H, Absolute Lymphs (auto) 1.28, Nucleated RBC % 0, Sodium 140, Potassium 3.8, Chloride 110 H, Carbon Dioxide 18.0 L, Anion Gap 12, BUN 13, Creatinine 0.96, Estim Creat Clear Calc 63.33, Est GFR (MDRD) Af Amer 98, Est GFR (MDRD) Non-Af 81, BUN/Creatinine Ratio 13.5, Glucose 81, Calcium 8.6 Radiography Diagnostic Testing: Radiology Impression Abdomen/Pelvis CT 05/04/23 11:07 IMPRESSION: 1. Dilated fluid-filled small bowel loops with normal caliber distal ileal loops concerning for distal small bowel obstruction. 2. Free fluid in the pelvis abnormal for a male patient. 3. Diverticulosis without evidence of acute diverticulitis. 4. Large simple liver cysts increased in size and previous exam. 5. Nonvisualization of the appendix. Electronically Signed: Bennie Birmingham MD at 13:44 EDT , Physical Exam Const alert, oriented x3, no apparent distress, average body habitus and well nourished Constitutional Narrative: Older, white male, sitting up in bed, sounds mildly congested with intermittent cough, at bedside, patient appears comfortable and nontoxic HEENT head/scalp atraumatic, moist oral mucous membranes and oropharynx normal Head and Scalp: normocephalic Resp normal respiratory effort, no retractions, no use of accessory muscles and clear to auscultation bilaterally Auscultation: Negative for rales, rhonchi or wheezes Cardio regular rate, regular rhythm, S1 normal heart sound, S2 normal heart sound, no murmurs, no rub, no gallops and no clicks GI GI Narrative: Bowel sounds are hypoactive, no significant distention is noted, abdomen is soft, mild tenderness left lower quadrant to mid abdominal area on the left side Extremity no clubbing, cyanosis or edema Extremity Narrative: Pedal pulses are 2+ Neuro oriented x3, CN's II-XII intact bilaterally, moves all extremities and no focal motor deficits Speech: speech normal Psych affect normal Psych Narrative: Eye contact is good, patient is very pleasant and interacts appropriately Assessment & Plan Assessment/Plan (1) Small bowel obstruction: (2) Abdominal pain: PLAN: Plan Partial small bowel obstruction -Continue n.p.o. okay for sips and chips with p.o. meds -Continue IV fluids but decrease rate to 100 cc/h -Continue antiemetics and pain medication as needed -Patient did have some diarrhea so we will check C. difficile -Small bowel follow-through is pending -Appreciate general surgery input Cough/congestion -COVID rapid is negative -Respiratory viral panel is pending -Monitor clinically and continue supportive care for now -We will check chest x-ray in a.m. -CT of the abdomen pelvis showed lower lung jason and showed only mild atelectatic or scarring in the lower lung jason. CAD/HTN/HPL -Continue home amlodipine 5 mg daily -Continue aspirin 81 mg daily -Continue metoprolol 25 mg p.o. daily -Continue home rosuvastatin 10 mg daily -Patient did have a stress test within the last year on 05/01/2022 that was negative for any inducible ischemia patient is chest pain-free -Most recently had YECENIA to ostial, proximal and mid LAD on 12/26/[address] Faith with the History of paroxysmal VT -Most recent Holter from April 2022 showed no dysrhythmia -Continue metoprolol -Continue outpatient cardiology follow-up Hypothyroidism -Continue home levothyroxine -With bowel obstruction we will check TSH -Patient is on biotin which could affect thyroid levels BPH -Continue home finasteride DVT prophylaxis -Continue subcu enoxaparin CODE STATUS Full code Charges/Coding Visit Charges Inpatient E&M: 93435 Subs Hosp L2
--- NOTE | 2023-05-05 08:26 | CON.PCM.SX_ITS ---
Assessment & Plan Assessment/Plan (1) Small bowel obstruction: PLAN: The patient had a CT scan which shows small bowel obstruction with t ransition in the right lower quadrant. The patient has had laparoscopic inguinal hernia repair in the past. He has never had a bowel obstruction. He denies any nausea or vomiting or abdominal pain he says he is mostly here because his doctor told him he had an obstruction. He is also been having congestion and cough. I will order a nasal swab to check for COVID and RSV. I will also order a small bowel follow-through to check if this is complete or if things move through. Continue observation for today. Carlos Dick MD Pager: [facility] [address] [place] [address], [address] [place] [address] Office: HPI Consult Data Date of Consult: 05/05/23 HPI Narrative HPI Narrative: ANANDA WALLER, is a 78 M who presents with a possible small bowel obstruction. The patient states that he has been having congestion and cough for about 2 weeks. He says that a few days ago he had diarrhea and then he became distended. He had a x-ray which shows bowel obstruction. He is not complaining of any abdominal pain this morning. He says has been a few days since he is passed gas. Denies nausea or vomiting. [facility] Medical History Atherosclerotic heart disease of [place] coronary artery without angina pectoris Back pain Bladder disease Cardiology follow-up encounter Dysuria Heartburn History of echocardiogram History of edema History of irregular heartbeat History of stress test Hypertension Hypothyroidism Leg cramps Non-smoker Palpitations Presence of stent in coronary artery (~12/26/20) Pure hypercholesterolemia Restless legs Seasonal allergies Shortness of breath on exertion Thin skin Thyroid disease Wears glasses Home Medications levothyroxine 50 mcg tablet 75 mcg PO QHS THYROID 09/19/20 [History Last Taken Unknown] multivitamin 1 tab PO DAILY SUPPLEMENT 09/19/20 [History Last Taken Unknown] rosuvastatin 10 mg tablet 10 mg PO DAILY ASK PCP 09/19/20 [History Last Taken Unknown] finasteride 1 mg tablet 1 mg PO DAILY BPH 09/21/20 [History Last Taken Unknown] aspirin 81 mg tablet,delayed release (Adult Low Dose Aspirin) 81 mg PO DAILY ASK PCP #30 tabs 10/31/20 [Rx Last Taken 12/26/20] biotin 1,000 mcg chewable tablet 1,000 mcg PO DAILY ASK PCP 05/18/21 [History Last Taken Unknown] melatonin 5 mg capsule 5 mg PO QHS PRN Sleep 12/31/21 [History Last Taken Unknown] amlodipine 5 mg tablet 5 mg PO DINNER ASK PCP 02/28/22 [History Last Taken Unknown] cholecalciferol (vitamin D3) 25 mcg (1,000 unit) tablet 25 mcg PO DAILY ASK PCP 04/22/22 [History Last Taken Unknown] metoprolol succinate 25 mg tablet,extended release 24 hr 25 mg PO DAILY #90 tabs 09/16/22 [Rx Last Taken Unknown] Allergy/AdvReac Type Severity Reaction Status Date / Time No Known Allergies Allergy Verified 05/04/23 11:50 Family History Father Heart disease Hypertension Mother Heart disease Hypertension Grandmother Diabetes Sister Cancer lung Surgical History History of bilateral inguinal hernia repair History of cardiac catheterization History of cholecystectomy History of tonsillectomy and adenoidectomy History of vasectomy Presence of aortocoronary bypass graft Presence of coronary angioplasty implant and graft (~12/26/20) S/P PTCA (percutaneous transluminal coronary angioplasty) Social History Smoking Status: Never smoker alcohol intake: never substance use type: does not use caffeine: Yes Type: carbonated beverages Number of servings: 1 and coffee Number of servings: 1 ROS Constitutional Constitutional: Denies anorexia, chills or fatigue Eyes Eyes: Denies blurry vision ENT HEENT: Denies abnormal hearing Cardiovascular Cardiovascular: Denies chest pain Respiratory/Chest Respiratory/Chest: Denies cough Gastrointestinal Gastrointestinal: Reports constipation; Denies abdominal pain, nausea or vomiting Genitourinary Genitourinary: Denies change in urinary stream Musculoskeletal Musculoskeletal: Denies abnormal gait Integumentary Integumentary: Denies jaundice Neurologic Neurologic: Denies abnormal gait Psychiatric Psychiatric: Denies anxiety Physical Exam Const alert and oriented x3 HEENT normocephalic Eyes PERRL Resp normal respiratory effort Cardio Rate: regular rate Rhythm: regular rhythm GI soft to palpation, non-tender and non-distended Lab / Micro Data 05/05/23 07:10 05/05/23 07:10 Labs: Laboratory Results - last 24 hr 05/04/23 11:21: WBC 10.4, RBC 4.92, Hgb 14.8, Hct 44.3, MCV 90.0, MCH 30.1, MCHC 33.4, RDW Std Deviation 44.9 H, RDW Coeff of Jong 13.3, Plt Count 195, MPV 9.7, Immature Gran % (Auto) 0.300, Neut % (Auto) 76.5 H, Lymph % (Auto) 10.4 L, [place] % (Auto) 11.1 H, Eos % (Auto) 1.3, Baso % (Auto) 0.4, Absolute Neuts (auto) 7.9 H, Absolute Lymphs (auto) 1.08, Nucleated RBC % 0, Sodium 138, Potassium 4.0, Chloride 106, Carbon Dioxide 25.0, Anion Gap 7, BUN 13, Creatinine 1.08, Estim Creat Clear Calc 56.30, Est GFR (MDRD) Af Amer 85, Est GFR (MDRD) Non-Af 71, BUN/Creatinine Ratio 12.0, Glucose 118 H, Calcium 9.0, Total Bilirubin 0.70, AST 12 L, ALT 24, Alkaline Phosphatase 75, Total Protein 7.3, Albumin 3.5, Globulin 3.8, Albumin/Globulin Ratio 0.9, Lipase 22 05/05/23 07:10: WBC 10.9, RBC 4.52 L, Hgb 14.1, Hct 41.0, MCV 90.7, MCH 31.2, MCHC 34.4, RDW Std Deviation 45.2 H, RDW Coeff of Jong 13.5, Plt Count 186, MPV 9.7, Immature Gran % (Auto) 0.300, Neut % (Auto) 75.2 H, Lymph % (Auto) 11.7 L, [place] % (Auto) 11.6 H, Eos % (Auto) 0.7, Baso % (Auto) 0.5, Absolute Neuts (auto) 8.2 H, Absolute Lymphs (auto) 1.28, Nucleated RBC % 0, Sodium 140, Potassium 3.8, Chloride 110 H, Carbon Dioxide 18.0 L, Anion Gap 12, BUN 13, Creatinine 0. 96, Estim Creat Clear Calc 63.33, Est GFR (MDRD) Af Amer 98, Est GFR (MDRD) Non- Af 81, BUN/Creatinine Ratio 13.5, Glucose 81, Calcium 8.6 Micro: Microbiology 05/05/23 07:30 Nasal Secretion SARS-CoV-2 Antigen (Rapid) - Final Radiology Impression Abdomen/Pelvis CT 05/04/23 11:07 IMPRESSION: 1. Dilated fluid-filled small bowel loops with normal caliber distal ileal loops concerning for distal small bowel obstruction. 2. Free fluid in the pelvis abnormal for a male patient. 3. Diverticulosis without evidence of acute diverticulitis. 4. Large simple liver cysts increased in size and previous exam. 5. Nonvisualization of the appendix. Electronically Signed: Bennie Birmingham MD at 13:44 EDT ,
[2023-05-05 08:38] LABS: Thyroid Stim Hormone (TSH) 1.81 uIU/mL (0.358-3.74)
[2023-05-05 10:09] VITALS: BP 156/90; PULSE 90; RESP 18; TEMP 37.2; O2SAT 95
--- NOTE | 2023-05-05 10:45 | RAD_ITS ---
EXAMINATION/TECHNIQUE: Exam: Small bowel follow-through. HISTORY: Small bowel obstruction. COMPARISON: CT scan 05/04/2023 TECHNIQUE: Patient was given water soluble contrast, and images were obtained up to 4 hours. FINDINGS: Note that the exam is limited by the use of water-soluble contrast. Barium is most often a better contrast agent choice because water-soluble contrast is rapidly diluted, especially in the face of ileus or obstruction, and late films are usually very limited. Nuclear Reactor Engineer film shows an abnormal bowel gas pattern with numerous distended loops of small bowel consistent with severe ileus or obstruction. Immediate image shows grossly normal appearance of the stomach. Contrast has passed into the duodenum and normal caliber proximal jejunum in the upper mid abdomen. 30 minute image shows some contrast in the fundus of the stomach, duodenum, and in 3 or 4 moderately distended loops of jejunum. 60 minute image shows little if any significant movement of contrast through several distended loops of small bowel. 2 hour images show only minimal change. Distended stomach and contrast remaining in numerous prominently distended loops of jejunum in the upper and left abdomen. Very little progression of contrast. The water-soluble contrast has begun to dilute. 4 hour image shows continued distention of the stomach with contrast. Continued contrast filled distended loops of jejunum. Little if any significant progression of contrast into distended small bowel loops in the mid and lower abdomen. The water-soluble contrast is markedly diluted and very little comment can be made of the morphology of the small bowel loops. No contrast has passed into the large bowel. RAD/Small Bowel Series Only IMPRESSION: Up to 4 hours, no contrast has passed into large bowel, and numerous prominently distended loops of small bowel are seen. Note, as discussed above, water-soluble contrast is not the optimal choice when evaluating small bowel obstruction because of the rapid dilution. Barium is most often a better choice. Electronically Signed: Brent Pepe MD at 17:23 EDT ,
--- NOTE | 2023-05-05 11:33 | CASEMGMT ---
RN CM into pt room, pt is off of the floor at this time. RN CM to complete assessment at a later time.
--- NOTE | 2023-05-05 14:00 | CASEMGMT ---
RN?CM?ADMINISTRATIVE SUPERVISOR?CM?to room to meet with patient for initial transition planning/care coordination?assessment.?RN?CM?introduced self and role at [facility].? Pt voices understanding and consents to?assessment?at this time.? Pt resting in bed in no distress at this time.? @ bedside. Pt is A/O at this time and answers all questions appropriately.?? Care providers, pharmacy, and demographics verified/updated at this time. PCP: Dr Monroe Specialists: [facility]/cardiology Preferred Pharmacy: [facility] Retail @ discharge Insurance: [employer] [facility] Prescription Benefit:?yes Living Will/HPOA:? Has both LW and HCPOA, who is his , Denia. LNOK: , Denia Living Arrangements: Lives w/his in 2-story home w/2 steps to enter. Denies difficulty w/stairs. Independent w/ADL's and manages his own medications. does most home mgnt tasks, but pt helps at times. Transportation:?Pt states drives self and states no transportation concerns at this time.? also drives. DME: ? Denies using any DME and denies needs.? HHC/SNF: No hx of either. No needs identified. Pt denies needs. Pt wishes to return home and states has no concerns with going home at time of discharge.? CM?to follow for any discharge planning/needs.? Pt voices no concerns/needs at this time.? Advised pt to ask for?CM?if any questions/concerns/needs arise.? Voices understanding. PLAN:??Home Garrett BSN?RN?CM
--- NOTE | 2023-05-05 15:29 | CASEMGMT ---
Social Work SW phoned to inquire about advanced directives. agreed to bring in copies during visit today. JA WanW
[2023-05-05 16:44] VITALS: BP 151/76; PULSE 84; RESP 18; TEMP 36.6; O2SAT 97
[2023-05-05] MEDS: Ondansetron 4 MG/2 ML Vial IV (17:10)
[2023-05-05] MEDS: amLODIPine 5 MG Tablet PO (17:11)
[2023-05-05] MEDS: Morphine 2 MG/ML Syringe IV (17:11)
[2023-05-05 20:48] VITALS: BP 157/76; PULSE 100; RESP 18; TEMP 36.6; O2SAT 94
[2023-05-05] MEDS: Levothyroxine 75 MCG Tablet PO (21:02)
[2023-05-06 04:00] VITALS: BP 144/70; PULSE 66; RESP 18; TEMP 36.6; O2SAT 97
--- NOTE | 2023-05-06 05:55 | RAD_ITS ---
EXAM: XR ABDOMEN, 1 VIEW CLINICAL INDICATION: small bowel series follow up TECHNIQUE: 2 portable supine views centered superiorly and inferiorly respectively. COMPARISON: Small bowel series May 05, 2023 with radiographs from 10:44 AM through 2:45 PM. FINDINGS: LOWER THORAX: Mild atelectasis at the left lateral lung base. GASTROINTESTINAL TRACT: There is residual contrast in the colon the level of the rectosigmoid junction and contrast within multiple diverticuli in the left colon. No residual contrast in persistently dilated small bowel loops, small bowel distention to 4.2 cm compared to 5.1 cm on prior exam. Appearance consistent with incomplete, partial or resolving small bowel obstruction. ORGANS: Unremarkable as visualized. No organomegaly. No abnormal calcifications. BONES/JOINTS: No acute pathology. SOFT TISSUES: No acute pathology. RAD/Abdomen Single View (Portable) IMPRESSION: 1. Contrast in the colon. No residual contrast in the small bowel but there is residual small bowel distention with gas. Mild decreased degree of small bowel distention. 2. Findings consistent with partial or resolving small bowel obstruction. Electronically Signed: Denia Tavarez MD at 6:15 EDT ,
[2023-05-06 06:01] LABS: Absolute Lymphocyte Count 1.21 X10^3/uL (0.83-4.51); Absolute Neutrophil Count 6.1 X10^3/uL (2.0-7.7); Basophil# 0.06 X10^3/uL; Basophil% 0.7 % (0-1); Eosinophil# 0.17 X10^3/uL; Hematocrit 38.2 % (40-54); Hemoglobin 12.7 g/dL (13.0-16.5); Lymphocyte # 1.21 X10^3/ul (0.83-4.51); Lymphocyte % 14.2 % (19-41); Mean Corp Hgb Conc 33.2 g/dL (32-36); Mean Corpuscular Hgb 30.8 pg (27.0-32.0); Mean Corpuscular Volume 92.5 fL (80-94); Mean Platelet Vol. 9.6 fl (6.2-12.0); Monocyte# 1.02 X10^3/uL; Monocyte% 11.9 % (0-10); NRBC Flagged by Analyzer 0 % (0-5); Neutrophil # 6.06 X10^3/uL (2.7-7.7); Neutrophil % 70.8 % (47-70); Platelet Count 183 K/mm3 (150-450); RBC Distribution Width CV 13.5 % (11.6-14.6); RBC Distribution Width SD 46.3 fl (35.1-43.9); Red Blood Count 4.13 M/mm3 (4.6-6.2); White Blood Count 8.6 K/mm3 (4.4-11.0)
[2023-05-06 06:40] LABS: ALB/GLOB Ratio 0.8 RATIO (0.9-2.4); AST(SGOT) 15 U/L (15-37); Alanine Aminotransfer ALT/SGPT 24 U/L (16-61); Albumin, Serum 2.8 g/dL (3.2-5.0); Alkaline Phosphatase 66 U/L (45-117); Anion Gap 7 (5-15); BUN 17 mg/dL (7-18); BUN/Creat Ratio 17.9 RATIO (10-20); Calcium,Total 8.3 mg/dL (8.5-10.1); Chloride 112 mmol/L (98-107); Creatinine, Serum 0.95 mg/dL (0.70-1.30); EST Glomerular Filtration Rate 82 mL/min (>60); Est Glom Filt Rate - Afr Amer 99 mL/min (>60); Globulin 3.5 g/dL (2.2-4.2); Glucose 83 mg/dL (74-106); Magnesium 2.2 mg/dL (1.6-2.6); Phosphorus 2.8 mg/dL (2.5-4.9); Potassium 3.8 mmol/L (3.5-5.1); Protein, Total 6.3 g/dL (6.4-8.2); Sodium Level 141 mmol/L (136-145)
--- NOTE | 2023-05-06 06:40 | PCM.PN.SRG ---
Subjective Subjective The patient reports that he bloated up very large during the small bowel follow-through yesterday but yesterday evening around 8 PM he started having several liquid bowel movements. He says his abdomen feels back to his normal size. He denies any nausea. He says he is not having any abdominal pain. Objective Data Objective Data Vital Signs: Vital Signs Temp Pulse Resp BP Pulse Ox O2 Del Method 97.9 F 66 18 144/70 H 97 Room Air 05/06/23 04:00 05/06/23 04:00 05/06/23 04:00 05/06/23 04:00 05/06/23 04:00 05/06/23 04:00 Oxygen Delivery Method Room Air Weight: 176 lb 12.972 oz Body Mass Index (BMI) 26.9 Intake & Output: Intake and Output for Last 24 Hours 05/04/23 05/05/23 05/06/23 23:59 23:59 23:59 Intake Total 1099 Balance 1099 Lab / Micro Data 05/06/23 05:45 05/06/23 05:45 Labs: Laboratory Results - last 24 hr 05/05/23 07:10: WBC 10.9, RBC 4.52 L, Hgb 14.1, Hct 41.0, MCV 90.7, MCH 31.2, MCHC 34.4, RDW Std Deviation 45.2 H, RDW Coeff of Jong 13.5, Plt Count 186, MPV 9.7, Immature Gran % (Auto) 0.300, Neut % (Auto) 75.2 H, Lymph % (Auto) 11.7 L, Reynolds % (Auto) 11.6 H, Eos % (Auto) 0.7, Baso % (Auto) 0.5, Absolute Neuts (auto) 8.2 H, Absolute Lymphs (auto) 1.28, Nucleated RBC % 0, Sodium 140, Potassium 3.8, Chloride 110 H, Carbon Dioxide 18.0 L, Anion Gap 12, BUN 13, Creatinine 0.96, Estim Creat Clear Calc 63.33, Est GFR (MDRD) Af Amer 98, Est GFR (MDRD) Non-Af 81, BUN/Creatinine Ratio 13.5, Glucose 81, Calcium 8.6, TSH 1.81 05/06/23 05:45: WBC 8.6, RBC 4.13 L, Hgb 12.7 L, Hct 38.2 L, MCV 92.5, MCH 30.8, MCHC 33.2, RDW Std Deviation 46.3 H, RDW Coeff of Jnog 13.5, Plt Count 183, MPV 9.6, Immature Gran % (Auto) 0.400, Neut % (Auto) 70.8 H, Lymph % (Auto) 14.2 L, Reynolds % (Auto) 11.9 H, Eos % (Auto) 2.0, Baso % (Auto) 0.7, Absolute Neuts (auto) 6.1, Absolute Lymphs (auto) 1.21, Nucleated RBC % 0, Sodium 141, Potassium 3.8, Chloride 112 H, Carbon Dioxide 22.0, Anion Gap 7, BUN 17, Creatinine 0.95, Estim Creat Clear Calc 64.00, Est GFR (MDRD) Af Amer 99, Est GFR (MDRD) Non-Af 82, BUN/Creatinine Ratio 17.9, Glucose 83, Calcium 8.3 L, Phosphorus 2.8, Magnesium 2.2, Total Bilirubin 0.60, AST 15, ALT 24, Alkaline Phosphatase 66, Total Protein 6.3 L, Albumin 2.8 L, Globulin 3.5, Albumin/Globulin Ratio 0.8 L Micro: Microbiology 05/05/23 21:00 Stool C. difficile DNA Amplification - Final 05/05/23 07:35 Interface Orders Respiratory Panel (PCR) - Final 05/05/23 07:30 Nasal Secretion SARS-CoV-2 Antigen (Rapid) - Final Radiography Diagnostic Testing: Radiology Impression Small Bowel X-Ray 05/05/23 10:45 IMPRESSION: Up to 4 hours, no contrast has passed into large bowel, and numerous prominently distended loops of small bowel are seen. Note, as discussed above, water-soluble contrast is not the optimal choice when evaluating small bowel obstruction because of the rapid dilution. Barium is most often a better choice. Electronically Signed: Brent Pepe MD at 17:23 EDT , KUB X-Ray 05/06/23 05:55 IMPRESSION: 1. Contrast in the colon. No residual contrast in the small bowel but there is residual small bowel distention with gas. Mild decreased degree of small bowel distention. 2. Findings consistent with partial or resolving small bowel obstruction. Electronically Signed: Denia Tavarez MD at 6:15 EDT Reading Location ID and State: [facility] / [place] Tel , Service support , Physical Exam Const oriented x3 and no apparent distress Resp normal respiratory effort GI soft to palpation and non-tender Inspection: Negative for abdominal distention Assessment & Plan Assessment/Plan (1) Small bowel obstruction: PLAN: The patient had a small bowel follow-through yesterday which did not show any passage of contrast. I had him scheduled for surgery today but around 8 PM he started having bowel movements and returning back to his normal size. KUB this morning confirms that all of the contrast is in his colon and his small bowel distention is improved. I will try clear liquid diet today to see how he tolerates this. If he tolerates clears I will advance his diet hopefully discharge tomorrow. If he does not tolerate clears I will make him back to n.p.o. and take him for surgery tomorrow instead. Carlos Dick MD Pager: [facility] [address] [place] [address], [address] [place] [address] Office:
[2023-05-06 07:45] VITALS: BP 149/82; PULSE 77; RESP 16; TEMP 36.4; O2SAT 96
[2023-05-06 08:10] VITALS: BP 135/69; PULSE 66; RESP 18; TEMP 36.6; O2SAT 97
[2023-05-06 09:56] VITALS: PULSE 69
[2023-05-06] MEDS: Aspirin E.C. 81 MG Tablet PO (09:56)
[2023-05-06] MEDS: Atorvastatin Calcium 20 MG Tablet PO (09:56)
[2023-05-06] MEDS: Metoprolol(XL)Succ 25 MG Tablet PO (09:56)
--- NOTE | 2023-05-06 11:28 | PCM.PN.HOSP ---
Reason for Visit Reason for Visit: Abdominal pain/distention Subjective Subjective Patient with flatus and bowel movement last evening at around 8 PM. Had several liquid bowel movements and now feels that his abdomen is back to normal size and his pain is resolved. Denies any nausea. He was started on clear liquid diet this morning by general surgery and tolerated this well at breakfast. Continues to have some respiratory symptoms however respiratory viral panel and COVID-19 are negative. Objective Data Objective Data Vital Signs: Vital Signs Temp Pulse Resp BP Pulse Ox O2 Del Method 97.8 F 69 18 135/69 H 97 Room Air 05/06/23 08:10 05/06/23 09:56 05/06/23 08:10 05/06/23 08:10 05/06/23 08:10 05/06/23 08:10 Oxygen Delivery Method Room Air Weight: 80.2 kg Body Mass Index (BMI) 26.9 Intake & Output: Intake and Output for Last 24 Hours 05/04/23 05/05/23 05/06/23 23:59 23:59 23:59 Intake Total 1099 Balance 1099 Lab / Micro Data 05/06/23 05:45 05/06/23 05:45 Labs: Laboratory Results - last 24 hr 05/06/23 05:45: WBC 8.6, RBC 4.13 L, Hgb 12.7 L, Hct 38.2 L, MCV 92.5, MCH 30.8, MCHC 33.2, RDW Std Deviation 46.3 H, RDW Coeff of Jong 13.5, Plt Count 183, MPV 9.6, Immature Gran % (Auto) 0.400, Neut % (Auto) 70.8 H, Lymph % (Auto) 14.2 L, [place] % (Auto) 11.9 H, Eos % (Auto) 2.0, Baso % (Auto) 0.7, Absolute Neuts (auto) 6.1, Absolute Lymphs (auto) 1.21, Nucleated RBC % 0, Sodium 141, Potassium 3.8, Chloride 112 H, Carbon Dioxide 22.0, Anion Gap 7, BUN 17, Creatinine 0.95, Estim Creat Clear Calc 64.00, Est GFR (MDRD) Af Amer 99, Est GFR (MDRD) Non-Af 82, BUN/Creatinine Ratio 17.9, Glucose 83, Calcium 8.3 L, Phosphorus 2.8, Magnesium 2.2, Total Bilirubin 0.60, AST 15, ALT 24, Alkaline Phosphatase 66, Total Protein 6.3 L, Albumin 2.8 L, Globulin 3.5, Albumin/Globulin Ratio 0.8 L Micro: Microbiology 05/05/23 21:00 Stool C. difficile DNA Amplification - Final 05/05/23 07:35 Interface Orders Respiratory Panel (PCR) - Final 05/05/23 07:30 Nasal Secretion SARS-CoV-2 Antigen (Rapid) - Final Radiography Diagnostic Testing: Radiology Impression Small Bowel X-Ray 05/05/23 10:45 IMPRESSION: Up to 4 hours, no contrast has passed into large bowel, and numerous prominently distended loops of small bowel are seen. Note, as discussed above, water-soluble contrast is not the optimal choice when evaluating small bowel obstruction because of the rapid dilution. Barium is most often a better choice. Electronically Signed: Brent Pepe MD at 17:23 EDT , KUB X-Ray 05/06/23 05:55 IMPRESSION: 1. Contrast in the colon. No residual contrast in the small bowel but there is residual small bowel distention with gas. Mild decreased degree of small bowel distention. 2. Findings consistent with partial or resolving small bowel obstruction. Electronically Signed: Denia Tavarez MD at 6:15 EDT , Physical Exam Const alert, oriented x3, no apparent distress, average body habitus and well nourished Constitutional Narrative: Older, white male, sitting up in bed, continues to sound mildly congested with intermittent cough, at bedside, patient appears comfortable and nontoxic General Appearance: cooperative HEENT normocephalic, head/scalp atraumatic and moist oral mucous membranes Resp normal respiratory effort, normal air movement, no retractions, no use of accessory muscles and clear to auscultation bilaterally Auscultation: Negative for rales, rhonchi or wheezes Cardio regular rate, regular rhythm, S1 normal heart sound, S2 normal heart sound, no murmurs, no rub, no gallops and no clicks GI normal to inspection, nondistended, normoactive bowel sounds, soft to palpation and non-tender Extremity no clubbing, cyanosis or edema Extremity Narrative: Pedal pulses are 2+ Neuro oriented x3, moves all extremities and no focal motor deficits Speech: speech normal Psych affect normal Psych Narrative: Eye contact is good, patient is very pleasant and interacts appropriately Assessment & Plan Assessment/Plan (1) Small bowel obstruction: (2) Abdominal pain: PLAN: Plan Partial small bowel obstruction -Resolving -Patient tolerating clear liquid diet at this time--> advance as able per general surgery -We will discontinue IV fluids -Continue antiemetics and pain medication as needed -C. difficile was negative -Small bowel follow-through was abnormal without contrast movement however KUB shows movement of contrast this morning and patient had several bowel movements last evening -Appreciate general surgery input -Plan is for clear liquid diet and advancing as able today with possible discharge tomorrow as long as he clinically continues to improve Cough/congestion -COVID rapid is negative -Respiratory viral panel is negative -Continue supportive care CAD/HTN/HPL -Continue home amlodipine 5 mg daily -Continue aspirin 81 mg daily -Continue metoprolol 25 mg p.o. daily -Continue home rosuvastatin 10 mg daily -Patient did have a stress test within the last year on 05/01/2022 that was negative for any inducible ischemia patient is chest pain-free -Most recently had YECENIA to ostial, proximal and mid LAD on 12/26/[address] Faith with the History of paroxysmal VT -Most recent Holter from April 2022 showed no dysrhythmia -Continue metoprolol -Continue outpatient cardiology follow-up Hypothyroidism -Continue home levothyroxine -With bowel obstruction we will check TSH -Patient is on biotin which could affect thyroid levels BPH -Continue home finasteride DVT prophylaxis -Continue subcu enoxaparin CODE STATUS Full code Charges/Coding Visit Charges Inpatient E&M: 19464 Subs Hosp L2
[2023-05-06 14:45] VITALS: BP 136/72; PULSE 64; RESP 18; TEMP 36.7; O2SAT 97
[2023-05-06] MEDS: amLODIPine 5 MG Tablet PO (17:21)
[2023-05-06 21:45] VITALS: BP 147/75; PULSE 65; RESP 16; TEMP 37; O2SAT 96
[2023-05-06] MEDS: Levothyroxine 75 MCG Tablet PO (21:53)
[2023-05-07 03:40] VITALS: BP 154/75; PULSE 70; RESP 16; TEMP 36.6; O2SAT 95
--- NOTE | 2023-05-07 07:11 | PCM.PN.SRG ---
Subjective Subjective Patient reports he did well with regular diet overnight. He did have a little abdominal discomfort right after eating but this past. He is passing flatus and he did pass liquid bowel movements as well. Objective Data Objective Data Vital Signs: Vital Signs Temp Pulse Resp BP Pulse Ox O2 Del Method 97.8 F 70 16 154/75 H 95 Room Air 05/07/23 03:40 05/07/23 03:40 05/07/23 03:40 05/07/23 03:40 05/07/23 03:40 05/07/23 03:40 Oxygen Delivery Method Room Air Weight: 176 lb 12.972 oz Body Mass Index (BMI) 26.9 Intake & Output: Intake and Output for Last 24 Hours 05/05/23 05/06/23 05/07/23 23:59 23:59 23:59 Intake Total 1100 / 1100 800 / 800 Balance 1100 / 1100 800 / 800 Lab / Micro Data 05/06/23 05:45 05/06/23 05:45 Micro: Microbiology 05/05/23 21:00 Stool C. difficile DNA Amplification - Final 05/05/23 07:35 Interface Orders Respiratory Panel (PCR) - Final 05/05/23 07:30 Nasal Secretion SARS-CoV-2 Antigen (Rapid) - Final Physical Exam Const oriented x3 and no apparent distress Resp normal respiratory effort GI normal to inspection, nondistended, normoactive bowel sounds Assessment & Plan Assessment/Plan (1) Small bowel obstruction: PLAN: Patient's bowel obstruction seems to be resolved. He is having bowel function and he tolerated regular diet yesterday. If he tolerates breakfast he is okay to discharge home from my standpoint. Follow-up as needed. Carlos Dick MD Pager: [facility] [address] [place] [address], [address] [place] [address] Office:
[2023-05-07 09:20] VITALS: BP 138/84; PULSE 74; RESP 18; TEMP 36.9; O2SAT 95
[2023-05-07 09:26] VITALS: PULSE 74
[2023-05-07] MEDS: Atorvastatin Calcium 20 MG Tablet PO (09:26)
[2023-05-07] MEDS: Aspirin E.C. 81 MG Tablet PO (09:26)
[2023-05-07] MEDS: Metoprolol(XL)Succ 25 MG Tablet PO (09:26)
--- NOTE | 2023-05-07 11:23 | PCM.DC.SUM ---
Providers Date of Admission: 05/04/23 Date of Discharge: 05/07/23 Primary Care Physician: Dr. Mele Monroe MD Consultations 05/04/23 14:35 Consult: General Surgery Routine Consulting Provider: Carlos Dick Reason for Consult: small bowel obstruction EMERGENT Consult: No MD Notified: Yes Date Notified: 05/04/23 Time Notified: 14:35 Method of Notification: Text Reason For Visit: SBO Diagnosis Discharge Diagnosis (1) Small bowel obstruction: Status: Acute Code(s): K56.609 - Unspecified intestinal obstruction, unspecified as to partial versus complete obstruction Medications at Discharge Home Medications levothyroxine 50 mcg tablet 75 mcg PO QHS THYROID 09/19/20 multivitamin 1 tab PO DAILY SUPPLEMENT 09/19/20 rosuvastatin 10 mg tablet 10 mg PO DAILY ASK PCP 09/19/20 finasteride 1 mg tablet 1 mg PO DAILY BPH 09/21/20 aspirin 81 mg tablet,delayed release (Adult Low Dose Aspirin) 81 mg PO DAILY ASK PCP #30 tabs 10/31/20 biotin 1,000 mcg chewable tablet 1,000 mcg PO DAILY ASK PCP 05/18/21 melatonin 5 mg capsule 5 mg PO QHS PRN Sleep 12/31/21 amlodipine 5 mg tablet 5 mg PO DINNER ASK PCP 02/28/22 cholecalciferol (vitamin D3) 25 mcg (1,000 unit) tablet 25 mcg PO DAILY ASK PCP 04/22/22 metoprolol succinate 25 mg tablet,extended release 24 hr 25 mg PO DAILY #90 tabs 09/16/22 Hospital Course Procedures - (CT of the abdomen pelvis/small bowel follow-through/KUB) Summary of Care Provided Minutes Spent on Discharge: 38 Hospital Course: Mr. Cunningham is an 78-year-old white male who presented to the emergency department at [facility] on 05/04/2023 complaining of abdominal pain and abdominal distention that had been progressively worsening for about 3 days. He reported he had some diarrhea about 3 days prior to presentation which is symptoms started. He was rating his pain at about 4 out of 10 and reported his distention was gradually worsening. He went to see his primary care physician and imaging was performed which showed some evidence of bowel obstruction so he was told to come the emergency department. He denied any nausea or vomiting but reported he had not had a bowel movement in the last 3 days. He was reporting flatus however. He denied fever or chills. Vital signs on presentation were overall unremarkable. His CBC and BMP were overall unremarkable. CT of the abdomen pelvis showed dilated fluid-filled small bowel loops with normal caliber distal ileal loops concerning for distal small bowel obstruction and free fluid in the pelvis which was abnormal for male patient. Diverticulosis without diverticulitis was also noted and a simple large liver cyst was identified. He was admitted to the medical floor and treated conservatively for bowel obstruction. He was placed on IV pain medication, IV fluids, and IV antiemetics as needed. He does have a history of abdominal surgeries including bilateral inguinal hernia repair, cholecystectomy and has had history of CABG. He is n.p.o. and general surgery has been consulted. NG was not placed as he was not having any nausea or vomiting and was passing some flatus. He was evaluated by general surgery and they noted that the CT scan showed small bowel obstruction with a transition point in the right lower quadrant and recommended a small bowel follow-through. This was performed on 05/05/2023 and demonstrated no significant passage of contrast however at 8 PM on the day of the he began to have significant amount of large bowel movements and his abdomen returned to normal size. A KUB was performed on the a.m. of 05/06/2023 and it confirmed that all of the contrast was now in his colon and the small bowel distention had improved. He was given clear liquid diet on the and tolerated this well. He was Stringer in the evening and then progressed to a regular diet this morning and tolerated this with only some mild bloating but no abdominal distention or pain. I discussed further with Dr. Dick, from general surgery, and they felt that his bowel obstruction was resolving and that he can go home. We did discuss need for him to return to the hospital including reoccurrence of symptoms of which he presented with and he voiced understanding. No new medications were given to him at discharge. Of note, he also had some upper respiratory symptoms that started at the same time as his bowel obstruction. A COVID-19 test as well as a respiratory viral panel obtained and both were negative. Overall he is feeling much better and anxious to go home. He was able to be discharged home in stable condition on 05/07/2023. Of asked him to follow-up with his primary care physician within the next [address] Dick as needed. Discharge diagnoses: Small bowel obstruction-resolved URI-resolving CAD Hypertension Hyperlipidemia History of paroxysmal VT Hypothyroidism BPH Physical Exam Const alert, oriented x3, no apparent distress, average body habitus and well nourished Constitutional Narrative: Older, white male, sitting up in bed, continues to sound mildly congested with intermittent cough, at bedside, patient appears comfortable and nontoxic General Appearance: cooperative, comfortable, well kempt and well developed Orientation / Consciousness: awake, oriented to person, oriented to place and oriented to time Exam Limitations: no limitations HEENT normocephalic, head/scalp atraumatic, moist oral mucous membranes and oropharynx normal HEENT Narrative: Mallampati 2, no thrush Eyes PERRL, EOMs intact bilaterally and conjunctivae normal Eyes Narrative: No scleral icterus Neck no lymphadenopathy and supple Neck Narrative: Trachea midline, no thyroid enlargement Resp normal respiratory effort, normal air movement, no retractions, no use of accessory muscles and clear to auscultation bilaterally Auscultation: Negative for rales, rhonchi or wheezes Cardio regular rate, regular rhythm, S1 normal heart sound, S2 normal heart sound, no murmurs, no rub, no gallops and no clicks GI normal to inspection, nondistended, normoactive bowel sounds, soft to palpation and non-tender Extremity no clubbing, cyanosis or edema Extremity Narrative: Pedal pulses are 2+ Skin no rashes or lesions noted, no wounds, skin turgor normal and no jaundice Neuro oriented x3, moves all extremities, no focal motor deficits, no sensory deficits noted and deep tendon reflexes 2+ bilaterally Speech: speech normal Psych thought process normal, cooperative and affect normal Psych Narrative: Eye contact is good, patient is very pleasant and interacts appropriately Appearance: appropriate Weight / BMI Weight Weight: 80.2 kg Body Mass Index (BMI) 26.9 ABG / Lab / Microbiology Data 05/06/23 05:45 05/06/23 05:45 Microbiology: Microbiology 05/05/23 21:00 Stool C. difficile DNA Amplification - Final 05/05/23 07:35 Interface Orders Respiratory Panel (PCR) - Final 05/05/23 07:30 Nasal Secretion SARS-CoV-2 Antigen (Rapid) - Final D/C Instructions Discharge Diet: Low fat / Low cholesterol (Low fiber diet) Discharge Activity: Return to Normal Activity Meaningful Use Info Meaningful Use Diagnoses (Choose all that apply): None applicable Discharge Plan Admission Admit Date/Time: 05/04/23 16:54 Primary Reason for Your Visit: abdominal pain and distention Attending Provider: Merced Sainz Primary Care Provider: Mele Monroe Consulting Providers: Carlos Dick; Madison Goyal Instructions Patient Instructions: Small Bowel Obstruction Additional Instructions / Restrictions: 1. Please come back to the emergency department if you develop symptoms similar to what brought you in for this hospitalization Discharge Orders/Prescriptions Prescriptions: Continued finasteride 1 mg tablet 1 mg PO DAILY aspirin [Adult Low Dose Aspirin] 81 mg tablet,delayed release (DR/EC) 81 mg PO DAILY Qty: 30 11RF biotin 1,000 mcg tablet,chewable 1,000 mcg PO DAILY melatonin 5 mg capsule 5 mg PO QHS PRN (Reason: Sleep) cholecalciferol (vitamin D3) 25 mcg (1,000 unit) tablet 25 mcg PO DAILY amlodipine 5 mg tablet 5 mg PO DINNER rosuvastatin 10 mg tablet 10 mg PO DAILY multivitamin Tablet 1 tab PO DAILY levothyroxine 50 mcg tablet 75 mcg PO QHS metoprolol succinate 25 mg tablet extended release 24 hr 25 mg PO DAILY Qty: 90 3RF Patient Comments: Noon Referrals / Follow Up: Carlos Dick MD [Med Staff - Active Staff] - See Referral Note (As needed) Mlee Monroe MD [Primary Care Provider] - Within 2 Weeks Disposition Disposition (needs filled in before D/C Order can be placed): Home, Self Care Charges/Coding Visit Charges Inpatient E&M: 21074 Disch Hosp >30min
--- NOTE | 2023-05-07 11:51 | PHA.DC.MR.R ---
Pharmacy SD Med Reconciliation Pharmacy Service has performed discharge medication reconciliation for this patient. The patient's discharge medication list was reviewed for discrepancies and discrepancies were resolved. Medications at Discharge Home Medications levothyroxine 50 mcg tablet 75 mcg PO QHS THYROID 09/19/20 multivitamin 1 tab PO DAILY SUPPLEMENT 09/19/20 rosuvastatin 10 mg tablet 10 mg PO DAILY ASK PCP 09/19/20 finasteride 1 mg tablet 1 mg PO DAILY BPH 09/21/20 aspirin 81 mg tablet,delayed release (Adult Low Dose Aspirin) 81 mg PO DAILY ASK PCP #30 tabs 10/31/20 biotin 1,000 mcg chewable tablet 1,000 mcg PO DAILY ASK PCP 05/18/21 melatonin 5 mg capsule 5 mg PO QHS PRN Sleep 12/31/21 amlodipine 5 mg tablet 5 mg PO DINNER ASK PCP 02/28/22 cholecalciferol (vitamin D3) 25 mcg (1,000 unit) tablet 25 mcg PO DAILY ASK PCP 04/22/22 metoprolol succinate 25 mg tablet,extended release 24 hr 25 mg PO DAILY #90 tabs 09/16/22
== END 2023-05-07 12:00 | disposition home or self-care (01) | DRG 390 ==
LOC: ED 14:08 → MS3 17:07
PROVIDERS: Admitting Provider Student in an Organized Health Care Education/Training Program; Emergency Provider Emergency Medicine; PCP Family Medicine; Visit Provider Internal Medicine
DX: K56.600 Partial intestinal obstruction, unspecified as to cause (principal); E03.9 Hypothyroidism, unspecified; K76.89 Other specified diseases of liver; I10 Essential (primary) hypertension; E78.00 Pure hypercholesterolemia, unspecified; I25.10 Atherosclerotic heart disease of native coronary artery without angina pectoris; K57.90 Diverticulosis of intestine, part unspecified, without perforation or abscess without bleeding; J06.9 Acute upper respiratory infection, unspecified; R19.7 Diarrhea, unspecified; Z95.5 Presence of coronary angioplasty implant and graft; Z79.82 Long term (current) use of aspirin; Z20.822 Contact with and (suspected) exposure to COVID-19; N40.0 Benign prostatic hyperplasia without lower urinary tract symptoms; N28.9 Disorder of kidney and ureter, unspecified; R10.9 Unspecified abdominal pain; Z79.899 Other long term (current) drug therapy; Z79.890 Hormone replacement therapy
CPT/HCPCS: 36415; 74018; 74022; 74177; 74250; 80048; 80053; 83690; 83735; 84100; 84443; 85025; 87426; 87493; 87633; 97802; 99282; J7030; Q9967; A4216; J2405

== ENCOUNTER → 2023-05-20 | Outpatient (CLI) | payer MEDICARE, SELFPAY ==
[2021-01-08 13:54] VITALS: BMI 24.3
[2023-05-20 11:56] LABS: Bacteria 0 SEEN /hpf (None Seen); Mucous, Urine 0 SEEN /hpf (<or=2+); Red Blood Cells-Urine 0 SEEN /hpf (0-5); Squamous Epithelial Cells - UA 0 SEEN /hpf (0-5); White Blood Cells 0 SEEN /hpf (0-5)
[2023-05-20 15:57] LABS: Absolute Lymphocyte Count 1.39 X10^3/uL (0.83-4.51); Absolute Neutrophil Count 4.9 X10^3/uL (2.0-7.7); Basophil# 0.07 X10^3/uL; Eosinophil# 0.14 X10^3/uL; Hemoglobin 13.4 g/dL (13.0-16.5); Lymphocyte # 1.39 X10^3/ul (0.83-4.51); Lymphocyte % 19.5 % (19-41); Mean Corp Hgb Conc 31.9 g/dL (32-36); Mean Corpuscular Hgb 30.4 pg (27.0-32.0); Mean Corpuscular Volume 95.2 fL (80-94); Mean Platelet Vol. 10.8 fl (6.2-12.0); Monocyte# 0.62 X10^3/uL; Monocyte% 8.7 % (0-10); NRBC Flagged by Analyzer 0 % (0-5); Neutrophil # 4.89 X10^3/uL (2.7-7.7); Neutrophil % 68.5 % (47-70); Platelet Count 248 K/mm3 (150-450); RBC Distribution Width CV 14.3 % (11.6-14.6); RBC Distribution Width SD 50.1 fl (35.1-43.9); Red Blood Count 4.41 M/mm3 (4.6-6.2); White Blood Count 7.1 K/mm3 (4.4-11.0)
[2023-05-20 16:25] LABS: AST(SGOT) 16 U/L (15-37); Alanine Aminotransfer ALT/SGPT 37 U/L (16-61); Albumin, Serum 3.5 g/dL (3.2-5.0); Alkaline Phosphatase 65 U/L (45-117); Anion Gap 4 (5-15); BUN 15 mg/dL (7-18); BUN/Creat Ratio 14.2 RATIO (10-20); Calcium,Total 8.7 mg/dL (8.5-10.1); Chloride 115 mmol/L (98-107); Cholesterol 133 mg/dL (200); Creatinine, Serum 1.06 mg/dL (0.70-1.30); EST Glomerular Filtration Rate 72 mL/min (>60); Est Glom Filt Rate - Afr Amer 87 mL/min (>60); Globulin 3.5 g/dL (2.2-4.2); Glucose 116 mg/dL (74-106); High Density Lipoprotein 47 mg/dL; Potassium 4.4 mmol/L (3.5-5.1); Sodium Level 143 mmol/L (136-145); T4 Free Direct 1.04 ng/dL (0.76-1.46); Thyroid Stim Hormone (TSH) 1.52 uIU/mL (0.358-3.74); Triglycerides 125 mg/dL; Very Low Density Lipoprotein 25 mg/dL (5-40)
[2023-05-20 16:27] LABS: Color, Urine Yellow (Yellow); Glucose, Dipstick Normal (Normal); Ketone-Dipstick Negative (Negative); Leukocyte Esterase-Dipstick Negative /ul (Negative); Nitrite-Dipstick Negative (Negative); Occult Blood-Urine Negative /ul (Negative); Protein-Dipstick Negative (Negative); Urine Bilirubin Dipstick Negative (Negative); Urine Clarity Clear (Clear); Urine Urobilinogen Normal (Normal)
== END | disposition home or self-care (01) ==
LOC: MFPLAB 11:49
PROVIDERS: PCP Family Medicine; Visit Provider Family Medicine
DX: I25.10 Atherosclerotic heart disease of native coronary artery without angina pectoris (principal); E03.9 Hypothyroidism, unspecified; Z12.5 Encounter for screening for malignant neoplasm of prostate
CPT/HCPCS: 36415; 80053; 80061; 81001; 84153; 84439; 84443; 85025; G0103

== ENCOUNTER → 2023-12-16 | Outpatient (CLI) | payer MEDICARE, SELFPAY ==
[2021-01-08 13:54] VITALS: BMI 24.3
[2023-12-16 10:09] LABS: Absolute Lymphocyte Count 0.97 X10^3/uL (0.83-4.51); Absolute Neutrophil Count 4.6 X10^3/uL (2.0-7.7); Basophil# 0.05 X10^3/uL; Basophil% 0.8 % (0-1); Eosinophil# 0.17 X10^3/uL; Eosinophils% 2.7 % (0-5); Hematocrit 42.3 % (40-54); Hemoglobin 14.1 g/dL (13.0-16.5); Lymphocyte # 0.97 X10^3/ul (0.83-4.51); Lymphocyte % 15.2 % (19-41); Mean Corp Hgb Conc 33.3 g/dL (32-36); Mean Corpuscular Hgb 31.2 pg (27.0-32.0); Mean Corpuscular Volume 93.6 fL (80-94); Mean Platelet Vol. 10.8 fl (6.2-12.0); Monocyte% 9.4 % (0-10); NRBC Flagged by Analyzer 0 % (0-5); Neutrophil # 4.56 X10^3/uL (2.7-7.7); Neutrophil % 71.6 % (47-70); Platelet Count 179 K/mm3 (150-450); RBC Distribution Width CV 14.2 % (11.6-14.6); RBC Distribution Width SD 49.3 fl (35.1-43.9); Red Blood Count 4.52 M/mm3 (4.6-6.2); White Blood Count 6.4 K/mm3 (4.4-11.0)
[2023-12-16 10:45] LABS: Hemoglobin A1c 5.3 % (3.8-5.6)
[2023-12-16 11:01] LABS: ALB/GLOB Ratio 1.1 RATIO (0.9-2.4); AST(SGOT) 21 U/L (15-37); Alanine Aminotransfer ALT/SGPT 28 U/L (16-61); Albumin, Serum 3.7 g/dL (3.2-5.0); Alkaline Phosphatase 67 U/L (45-117); Anion Gap 8 (5-15); BUN 15 mg/dL (7-18); BUN/Creat Ratio 15.2 RATIO (10-20); CPK Total, Creatine Kinase 122 U/L (39-308); Chloride 110 mmol/L (98-107); Cholesterol 134 mg/dL (200); Creatinine, Serum 0.98 mg/dL (0.70-1.30); EST Glomerular Filtration Rate 79 mL/min (>60); Est Glom Filt Rate - Afr Amer 95 mL/min (>60); Ferritin 58 ng/mL (26-388); Globulin 3.5 g/dL (2.2-4.2); Glucose 111 mg/dL (74-106); High Density Lipoprotein 59 mg/dL; Magnesium 2.2 mg/dL (1.6-2.6); Potassium 4.1 mmol/L (3.5-5.1); Protein, Total 7.2 g/dL (6.4-8.2); Sodium Level 142 mmol/L (136-145); T4 Free Direct 1.15 ng/dL (0.76-1.46); Thyroid Stim Hormone (TSH) 2.97 uIU/mL (0.358-3.74); Triglycerides 47 mg/dL; Very Low Density Lipoprotein 9 mg/dL (5-40)
== END | disposition home or self-care (01) ==
LOC: MFPLAB 09:08
PROVIDERS: PCP Family Medicine; Visit Provider Family Medicine
DX: M79.10 Myalgia, unspecified site (principal); I10 Essential (primary) hypertension; E03.9 Hypothyroidism, unspecified; R73.02 Impaired glucose tolerance (oral)
CPT/HCPCS: 36415; 80053; 80061; 82550; 82728; 83036; 83735; 84439; 84443; 85025

== ENCOUNTER → 2024-03-18 | Outpatient (CLI) | payer MEDICARE, SELFPAY ==
[2021-01-08 13:54] VITALS: BMI 24.3
--- NOTE | 2024-03-18 11:19 | RAD_ITS ---
STUDY: X-RAY - LUMBAR SPINE REASON FOR EXAM: Male, 79 years old. Radiculopathy and pain. TECHNIQUE: 2 view(s) of the lumbar spine were obtained. COMPARISON: None FINDINGS: Osteopenia. Slight accentuation of lordosis. No scoliosis. Normal vertebral alignment. Diffuse moderate lower thoracic and lumbosacral facet sclerosis. Diffuse intervertebral disc space narrowing with osteophytes most marked at L1-2 through L5-S1. Vascular calcification. RAD/Lumbar Spine 2 or 3 Views IMPRESSION: Osteopenia with diffuse moderate lower thoracic and lumbosacral spondylosis. Electronically Signed: Sumeet Pisano MD at 15:26 EDT ,
== END | disposition home or self-care (01) ==
PROVIDERS: PCP Family Medicine; Referring Provider Family Medicine; Visit Provider Family Medicine
DX: M54.9 Dorsalgia, unspecified (principal)
CPT/HCPCS: 72100

== ENCOUNTER → 2024-06-22 | Outpatient (CLI) | payer MEDICARE, SELFPAY ==
[2021-01-08 13:54] VITALS: BMI 24.3
[2024-06-22 12:31] LABS: Absolute Lymphocyte Count 1.36 X10^3/uL (0.83-4.51); Absolute Neutrophil Count 4.7 X10^3/uL (2.0-7.7); Basophil# 0.06 X10^3/uL; Basophil% 0.9 % (0-1); Eosinophil# 0.16 X10^3/uL; Eosinophils% 2.3 % (0-5); Hematocrit 43.5 % (40-54); Hemoglobin 14.2 g/dL (13.0-16.5); Lymphocyte # 1.36 X10^3/ul (0.83-4.51); Lymphocyte % 19.7 % (19-41); Mean Corp Hgb Conc 32.6 g/dL (32-36); Mean Corpuscular Hgb 30.3 pg (27.0-32.0); Mean Corpuscular Volume 92.8 fL (80-94); Mean Platelet Vol. 10.3 fl (6.2-12.0); Monocyte# 0.63 X10^3/uL; Monocyte% 9.1 % (0-10); NRBC Flagged by Analyzer 0 % (0-5); Neutrophil # 4.66 X10^3/uL (2.7-7.7); Neutrophil % 67.6 % (47-70); Platelet Count 201 K/mm3 (150-450); RBC Distribution Width CV 13.7 % (11.6-14.6); RBC Distribution Width SD 46.8 fl (35.1-43.9); Red Blood Count 4.69 M/mm3 (4.6-6.2); White Blood Count 6.9 K/mm3 (4.4-11.0)
[2024-06-22 12:55] LABS: AST(SGOT) 18 U/L (15-37); Alanine Aminotransfer ALT/SGPT 28 U/L (16-61); Albumin, Serum 3.6 g/dL (3.2-5.0); Alkaline Phosphatase 80 U/L (45-117); Anion Gap 4 (5-15); BUN 18 mg/dL (7-18); BUN/Creat Ratio 17.1 RATIO (10-20); Calcium,Total 9.1 mg/dL (8.5-10.1); Chloride 113 mmol/L (98-107); Cholesterol 121 mg/dL (200); Creatinine, Serum 1.05 mg/dL (0.70-1.30); EST Glomerular Filtration Rate 73 mL/min (>60); Est Glom Filt Rate - Afr Amer 88 mL/min (>60); Globulin 3.6 g/dL (2.2-4.2); Glucose 105 mg/dL (74-106); High Density Lipoprotein 58 mg/dL; PSA,Total - Annual Screen 0.29 ng/mL (0.00-4.00); Potassium 4.7 mmol/L (3.5-5.1); Protein, Total 7.2 g/dL (6.4-8.2); Sodium Level 142 mmol/L (136-145); T4 Free Direct 1.15 ng/dL (0.76-1.46); Triglycerides 50 mg/dL; Very Low Density Lipoprotein 10 mg/dL (5-40)
[2024-06-22 12:58] LABS: Hemoglobin A1c 5.7 % (3.8-5.6)
== END | disposition home or self-care (01) ==
LOC: MFPLAB 09:40
PROVIDERS: PCP Family Medicine; Visit Provider Family Medicine
DX: E03.9 Hypothyroidism, unspecified (principal); Z12.5 Encounter for screening for malignant neoplasm of prostate; R73.02 Impaired glucose tolerance (oral)
CPT/HCPCS: 36415; 80053; 80061; 83036; 84153; 84439; 84443; 85025; G0103

== ENCOUNTER → 2024-07-13 | Outpatient (CLI) | payer MEDICARE, SELFPAY ==
[2021-01-08 13:54] VITALS: BMI 24.3
--- NOTE | 2024-07-13 08:33 | RAD_ITS ---
STUDY: X-RAY - PELVIS AND LEFT HIP REASON FOR EXAM: Male, 79 years old. pain TECHNIQUE: 3 views of the pelvis and hip. COMPARISON: None. FINDINGS: There is a non-specific bowel gas pattern. Normal visualized soft tissue structures. Normal bilateral iliac wings, sacroiliac joints and visualized sacrum. Normal bilateral superior and inferior pubic rami. Normal pubic symphysis. Normal bilateral ischial tuberosities. Normal visualized femoral head. Normal acetabulum. There is mild articular joint space narrowing of the hip. RAD/HIP, UNI W/ Pelvis 2-3 Views IMPRESSION: Mild arthrosis. Electronically Signed: Atif Banks MD at 11:17 EST ,
--- NOTE | 2024-07-13 08:33 | RAD_ITS ---
STUDY: X-RAY - CERVICAL SPINE REASON FOR EXAM: Male, 79 years old. neck pain TECHNIQUE: 3 view(s) of the cervical spine were obtained. COMPARISON: None FINDINGS: Normal anterior atlantoaxial articulation. Normal odontoid process. Normal cervical lordosis. Normal vertebral bodies and endplates. There is multi-level degenerative disc disease with multilevel disc space narrowing. Normal visualized intervertebral neuroforamina. The soft tissue structures are unremarkable. RAD/Cerv Spine 2 or 3 Views IMPRESSION: Mild degenerative disc disease lower cervical spine. MRI may be useful. Electronically Signed: Atif Banks MD at 11:19 [facility] ,
== END | disposition home or self-care (01) ==
LOC: MTRAD 08:33
PROVIDERS: PCP Family Medicine; Referring Provider Family Medicine; Visit Provider Family Medicine
DX: M54.2 Cervicalgia (principal); M25.552 Pain in left hip
CPT/HCPCS: 72040; 73502

== ENCOUNTER → 2024-09-10 | Outpatient (CLI) | payer MEDICARE, SELFPAY ==
[2021-01-08 13:54] VITALS: BMI 24.3
--- NOTE | 2024-09-10 06:46 | ECHOD_ITS ---
Reason For Study Reason For Study: DYSPNEA Procedure This was a 2D Doppler, Color Flow transthoracic echocardiogram. Exam performed in department. Left Ventricle Normal LV size. Mild concentric left ventricular hypertrophy. The left ventricular ejection fraction is 65 %. Stage 1 diastolic dysfunction. Right Ventricle Normal right ventricle. Atria The left atrium is moderately enlarged. The right atrium is mildly enlarged. Mitral Valve Mild (1+) posteriorly directed mitral valve insufficiency. Tricuspid Valve Mild tricuspid valve insufficiency. Right ventricular systolic pressure estimated to be 40 mmHg. Aortic Valve Trisinus/trileaflet aortic valve. Mild (1+) aortic valve insufficiency. Pulmonic Valve The pulmonic valve is not well visualized. Trivial pulmonic valve insufficiency. Great Vessels Normal sized aortic root. Pericardium/Pleural No pericardial effusion. MMode/2D Measurements & Calculations LVIDd: 5.0 cm IVSd: 1.4 cm LVOT diam: 2.1 cm LVIDs: 3.1 cm LVPWd: 1.2 cm LVOT area: 3.4 cm2 RVDd: 3.6 cm FS: 37.7 % Ao root diam: 3.5 cm LAV(MOD-bp): 63.9 ml LVAd ap4: 27.7 cm2 LA dimension: 4.7 cm LAV(MOD-bp) Indexed: 32.7 ml/m2 LVLd ap4: 8.7 cm LAV(MOD-sp2): 50.4 ml EDV(MOD-sp4): 72.6 ml LAV(MOD-sp4): 68.0 ml EDV(sp4-el): 74.8 ml LVAs ap4: 14.7 cm2 LVLs ap4: 6.4 cm ESV(MOD-sp4): 29.1 ml ESV(sp4-el): 28.9 ml EF(MOD-sp4): 60.0 % EF(sp4-el): 61.4 % SV(MOD-sp4): 43.6 ml SV(sp4-el): 45.9 ml LA A4 area: 22.3 cm2 SI(MOD-sp4): 22.3 ml/m2 LA dimension(2D): 4.3 cm RA A4 area: 11.9 cm2 Time Measurements MV dec time: 0.17 sec Doppler Measurements & Calculations MV E max osorio: 66.3 cm/sec Lat Peak E' Osorio: 14.2 cm/sec Med Peak E' Osorio: 9.1 cm/sec MV A max osorio: 44.5 cm/sec E/E' lat: 4.7 E/E' med: 7.3 MV E/A: 1.5 MV V2 max: 90.7 cm/sec Ao V2 max: 125.6 cm/sec MV max P.3 mmHg MV dec slope: 388.4 cm/sec2 Ao max P.3 mmHg MV V2 mean: 40.7 cm/sec Ao V2 mean: 74.4 cm/sec MV mean P.85 mmHg Ao mean P.7 mmHg MV V2 VTI: 27.3 cm Ao V2 VTI: 28.6 cm AV (velocity ratio): 0.82 MVA(VTI): 3.0 cm2 GRAHAM(I,D): 2.8 cm2 GRAHAM(V,D): 2.5 cm2 LV V1 max: 93.1 cm/sec SV(LVOT): 80.8 ml PA V2 max: 93.8 cm/sec LV V1 max P.5 mmHg PA V2 mean: 63.7 cm/sec LV V1 mean P.7 mmHg LV V1 mean: 61.3 cm/sec LV V1 VTI: 23.6 cm PI end-d osorio: 99.1 cm/sec TR max osorio: 297.5 cm/sec TR max P.4 mmHg ECHO/Echo Complete Interpretation Summary Mild concentric left ventricular hypertrophy. The left ventricular ejection fraction is 65 %. Stage 1 diastolic dysfunction. The left atrium is moderately enlarged. The right atrium is mildly enlarged. Mild (1+) posteriorly directed mitral valve insufficiency. Mild tricuspid valve insufficiency. Right ventricular systolic pressure estimated to be 40 mmHg. Mild (1+) aortic valve insufficiency. Large 12 x 12 cm hepatic cyst noted. Recommend ultrasound of the liver for furt her evaluation. Ordering Physician: Cherie Snowden Referring Physician: Cherie Snowden Performed By: Sade Dodson RCS
--- NOTE | 2024-09-13 10:00 | STRESSREP_ITS ---
Stress Test Report Date: 09/10/2024 Procedure: Pharmacologic stress nuclear imaging study Indications: Dyspnea Consent: Per the patient Procedure: The patient underwent pharmacologic (Regadenoson 0.4mg ) evaluation with a peak heart rate of 83 beats per minute (58%predicted maximal heart rate) and a peak blood pressure of 120/72 mmHg. The baseline ECG demonstrated sinus rhythm. The peak pharmacologic ECG demonstrated no ischemic changes. There were no cardiac dysrhythmias pretest, during pharmacologic infusion, or recovery. There was no complaint of chest discomfort during pharmacologic infusion or recovery. The patient was injected with 12.0 millicuries of technetium 99m Cardiolite and subsequently rest SPECT Cardiolite nuclear imaging was obtained in the horizontal long, vertical long, and short axis views. The patient underwent pharmacologic (Regadenoson) evaluation. The patient was injected with 35.1 millicuries of technetium 99m Cardiolite and subsequently stress SPECT Cardiolite nuclear imaging was obtained in the horizontal long, vertical long, and short axis views. A gated Cardiolite study at peak stress was obtained. The examination was stopped secondary to completion of protocol. Rest and stress SPECT Cardiolite nuclear imaging status post realignment, normalization, and attenuation correction demonstrate no fixed or reversible perfusion defects. There is end systolic thickening and brightening. The gated Cardiolite study demonstrates myocardial thickening and inward wall motion. The reported LVEF is 71%. Impression: 1. Pharmacologic (Regadenoson) evaluation 2. Peak pharmacologic ECG with no ischemic changes. 3. There were no cardiac dysrhythmias pretest, during pharmacologic infusion, or recovery. 5. Rest and stress SPECT Cardiolite nuclear imaging demonstrate relative uniform tracer uptake and myocardial perfusion appearing within normal limits. 6. The gated Cardiolite study reports an LVEF of 71%. This note was generated with [employer] software. It may contain incorrect words, spelling, and punctuation that were not noted in checking the note before signing.
== END | disposition home or self-care (01) ==
LOC: CVS 06:40
PROVIDERS: PCP Family Medicine; Referring Provider Internal Medicine Cardiovascular Disease; Visit Provider Internal Medicine Cardiovascular Disease
DX: R06.02 Shortness of breath (principal); R93.1 Abnormal findings on diagnostic imaging of heart and coronary circulation; R94.39 Abnormal result of other cardiovascular function study; I25.10 Atherosclerotic heart disease of native coronary artery without angina pectoris; R07.2 Precordial pain; R53.83 Other fatigue; R55 Syncope and collapse; R00.2 Palpitations
CPT/HCPCS: 78452; 93017; 93306; A9500; A4216; J2785

== ENCOUNTER → 2024-11-09 | Outpatient (CLI) | payer MEDICARE, SELFPAY ==
[2021-01-08 13:54] VITALS: BMI 24.3
--- NOTE | 2024-11-09 08:33 | US_ITS ---
PROCEDURE: ABDOMEN LIMITED 11/09/2024 REASON FOR EXAM: LIVER CYST COMPARISON: Comparison is made with prior CT scan dated May 04, 2023. FINDINGS: Liver: Diffusely echogenic suggesting fatty infiltration. Hepatomegaly. The liver measures 20.3 cm. There is a 14.6 cm 13.7 cm x 11 cm right hepatic cyst. There is also evidence of a 3.4 cm 3 cm x 3.6 cm cyst in the left lobe of the liver. Gallbladder: Surgically absent. Common bile duct: Normal measuring it measures 4.3 mm.. Pancreas: Obscured by bowel gas. Other: Visualized portions of the right kidney are unremarkable. 2.7 cm x 2.6 cm 3.3 cm cyst in the upper pole of the right kidney. No right upper quadrant ascites. US/Abdomen Limited IMPRESSION: Hepatomegaly and diffuse fatty infiltration. Dominant cyst in the right lobe of the liver measuring 14.6 cm x 13.7 cm 11 cm. There is a 3.4 cm x 3 cm x 3.6 cm cyst in the left lobe of the liver. Right renal cyst. Status post cholecystectomy. Reading Location: [place] [id number]
== END | disposition home or self-care (01) ==
LOC: US 08:29
PROVIDERS: PCP Family Medicine; Referring Provider Family Medicine; Visit Provider Family Medicine
DX: K76.89 Other specified diseases of liver (principal)
CPT/HCPCS: 76705

== ENCOUNTER → 2024-12-06 | Outpatient (CLI) | payer MEDICARE, SELFPAY ==
[2021-01-08 13:54] VITALS: BMI 24.3
--- NOTE | 2024-12-06 07:55 | US_ITS ---
PROCEDURE: ELASTOGRAPHY PARENCHYMA/ORGAN 12/06/2024 REASON FOR EXAM: FATTY LIVER TECHNIQUE: Elastography was performed. COMPARISON: None FINDINGS: Average kPA: 17.3. Velocity: 2.38 m/sec. US/Elastography Parenchyma/Organ IMPRESSION: Metavir score: F 4 Reading Location: [id number]
== END | disposition home or self-care (01) ==
LOC: US 07:52
PROVIDERS: PCP Family Medicine; Referring Provider Internal Medicine Gastroenterology; Visit Provider Internal Medicine Gastroenterology
DX: K76.0 Fatty (change of) liver, not elsewhere classified (principal)
CPT/HCPCS: 76981

== ENCOUNTER → 2025-01-05 | Outpatient (CLI) | payer MEDICARE, SELFPAY ==
[2021-01-08 13:54] VITALS: BMI 24.3
[2025-01-05 10:16] LABS: Absolute Lymphocyte Count 1.31 X10^3/uL (0.83-4.51); Absolute Neutrophil Count 3.8 X10^3/uL (2.0-7.7); Basophil# 0.06 X10^3/uL; Eosinophil# 0.18 X10^3/uL; Hematocrit 40.3 % (40-54); Hemoglobin 13.7 g/dL (13.0-16.5); Lymphocyte # 1.31 X10^3/ul (0.83-4.51); Lymphocyte % 22.1 % (19-41); Mean Corpuscular Hgb 31.1 pg (27.0-32.0); Mean Corpuscular Volume 91.4 fL (80-94); Mean Platelet Vol. 10.7 fl (6.2-12.0); Monocyte% 10.1 % (0-10); NRBC Flagged by Analyzer 0 % (0-5); Neutrophil # 3.77 X10^3/uL (2.7-7.7); Neutrophil % 63.6 % (47-70); Platelet Count 178 K/mm3 (150-450); RBC Distribution Width CV 13.9 % (11.6-14.6); Red Blood Count 4.41 M/mm3 (4.6-6.2); White Blood Count 5.9 K/mm3 (4.4-11.0)
[2025-01-05 11:53] LABS: ALB/GLOB Ratio 1.7 RATIO (0.9-2.4); AST(SGOT) 22 U/L (<=37); Alanine Aminotransfer ALT/SGPT 21 U/L (<=46); Albumin, Serum 4.2 g/dL (3.4-4.8); Alkaline Phosphatase 64 U/L (40-129); Anion Gap 10 (5-15); BUN 17 mg/dL (4-19); BUN/Creat Ratio 14.6 RATIO (10-20); Calcium,Total 9.3 mg/dL (7.6-11.0); Carbon Dioxide 21.9 mmol/L (21.0-32.0); Chloride 110 mmol/L (98-108); Cholesterol 123 mg/dL (<=200); Creatinine, Serum 1.18 mg/dL (0.70-1.20); EST Glomerular Filtration Rate 64 (>60); Globulin 2.5 g/dL (2.2-4.2); Glucose 108 mg/dL (70-99); High Density Lipoprotein 50 mg/dL; Low Density Lipoprotein Calc. 61 mg/dL; Potassium 4.7 mmol/L (3.3-5.1); Protein, Total 6.8 g/dL (5.9-8.4); Sodium Level 141 mmol/L (133-145); Total Bilirubin 0.51 mg/dL (0.00-1.30); Triglycerides 62 mg/dL; Very Low Density Lipoprotein 12 mg/dL (5-40); cholesterol:hdl ratio screen 2.47
[2025-01-05 11:57] LABS: Hemoglobin A1c 5.9 % (<=5.6)
[2025-01-05 15:59] LABS: Hematocrit 41.8 % (40-54); Hemoglobin 14.2 g/dL (13.0-16.5); Mean Corpuscular Hgb 31.1 pg (27.0-32.0); Mean Corpuscular Volume 91.7 fL (80-94); Platelet Count 172 K/mm3 (150-450); RBC Distribution Width SD 47.5 fl (35.1-43.9); Red Blood Count 4.56 M/mm3 (4.6-6.2); White Blood Count 6.2 K/mm3 (4.4-11.0)
[2025-01-05 17:40] LABS: ALB/GLOB Ratio 1.6 RATIO (0.9-2.4); AST(SGOT) 25 U/L (<=37); Alanine Aminotransfer ALT/SGPT 23 U/L (<=46); Albumin, Serum 4.3 g/dL (3.4-4.8); Alkaline Phosphatase 67 U/L (40-129); Anion Gap 11 (5-15); BUN 16 mg/dL (4-19); Calcium,Total 9.4 mg/dL (7.6-11.0); Carbon Dioxide 19.4 mmol/L (21.0-32.0); Chloride 110 mmol/L (98-108); Creatinine, Serum 1.14 mg/dL (0.70-1.20); EST Glomerular Filtration Rate 66 (>60); Globulin 2.7 g/dL (2.2-4.2); Glucose 102 mg/dL (70-99); Potassium 4.2 mmol/L (3.3-5.1); Sodium Level 140 mmol/L (133-145); Total Bilirubin 0.51 mg/dL (0.00-1.30)
[2025-01-05 17:52] LABS: Prothrombin Time (Protime)PT. 13.4 SECONDS (11.7-14.9)
[2025-01-07 04:07] LABS: AFP, Tumor Marker 2.3 ng/mL (0.0-8.4)
== END | disposition home or self-care (01) ==
PROVIDERS: PCP Family Medicine; Referring Provider Family Medicine; Visit Provider Family Medicine
DX: K74.60 Unspecified cirrhosis of liver (principal); E78.00 Pure hypercholesterolemia, unspecified; E03.9 Hypothyroidism, unspecified; I25.10 Atherosclerotic heart disease of native coronary artery without angina pectoris; R73.02 Impaired glucose tolerance (oral)
CPT/HCPCS: 36415; 80053; 80061; 82105; 83036; 84439; 84443; 85025; 85027; 85610; 85730

== ENCOUNTER → 2025-02-14 | Outpatient (CLI) | payer MEDICARE, SELFPAY ==
[2021-01-08 13:54] VITALS: BMI 24.3
--- NOTE | 2025-02-14 15:55 | MRI_ITS ---
PROCEDURE: MRI ABD WITH AND W/O CONTRAST, 02/14/2025 REASON FOR EXAM: CIRRHOSIS TECHNIQUE: Multiplanar multisequence MRI abdomen was performed with and without IV contrast. IV contrast: 17 mL Clariscan COMPARISON: 12/06/2024 FINDINGS: Variable overall mild motion limitation. Liver: Grossly unremarkable signal characteristics. No clear serosal nodularity or lobulation. Lobulated hepatic cysts up to 14.3 x 10.9 cm, previously up to 12.4 x 10.0 cm. No enhancing lesions identified. Spleen: Unremarkable. Gallbladder/biliary: Cholecystectomy. LEFT lobe intrahepatic biliary ductal dilatation, grossly similar to 05/04/2023. CBD is nondilated. Pancreas: Unremarkable. Adrenals: Unremarkable. Kidneys: Bilateral cysts, up to 6.9 cm on the LEFT.. Tiny exophytic T2 dark lesion arising from the RIGHT upper pole measuring 8 mm, unable to definitively characterize on postcontrast sequences due to minute size and motion artifact, presumed hemorrhagic cyst, probably unchanged in size from 05/04/2023. Bowel: Not well evaluated by MRI. Diverticulosis. Lymph nodes: Unremarkable. Vasculature: Unremarkable. Peritoneum: Unremarkable. Bones: Lumbar spondylosis.. MRI/MRI Abd WITH and W/O Contrast IMPRESSION: 1. Grossly unremarkable hepatic morphology and signal characteristics. 2. Large lobulated hepatic cysts up to 14.3 cm, minimally enlarged from 023. Note associated LEFT lobe intrahepatic biliary dilatation which is essentially unchanged from that time; a finding whi ch is not expected to be associated with simple cysts and raises the possibility of biliary cystadenoma. No extrahepatic bilia ry dilatation. 3. Additional description as above. Reading Location: [id number]
== END | disposition home or self-care (01) ==
LOC: MRI 15:29
PROVIDERS: PCP Family Medicine; Referring Provider Internal Medicine Gastroenterology; Visit Provider Internal Medicine Gastroenterology
DX: K74.60 Unspecified cirrhosis of liver (principal)
CPT/HCPCS: 74183; A9575; A4216

== ENCOUNTER → 2025-05-04 | Outpatient (CLI) | payer MEDICARE, SELFPAY ==
[2021-01-08 13:54] VITALS: BMI 24.3
[2025-05-04 12:31] LABS: Hematocrit 39.9 % (40-54); Hemoglobin 13.6 g/dL (13.0-16.5); Immature Granulocytes Count 0.010 X10^3/uL (0.0-0.0); Mean Corp Hgb Conc 34.1 g/dL (32-36); Mean Corpuscular Volume 92.4 fL (80-94); Mean Platelet Vol. 10.4 fl (6.2-12.0); NRBC Flagged by Analyzer 0 % (0-5); Platelet Count 171 K/mm3 (150-450); RBC Distribution Width CV 14.1 % (11.6-14.6); RBC Distribution Width SD 48.0 fl (35.1-43.9); Red Blood Count 4.32 M/mm3 (4.6-6.2); White Blood Count 5.5 K/mm3 (4.4-11.0)
[2025-05-04 14:09] LABS: AST(SGOT) 21 U/L (<=37); Alanine Aminotransfer ALT/SGPT 23 U/L (<=46); Albumin, Serum 4.2 g/dL (3.4-4.8); Alkaline Phosphatase 67 U/L (40-129); Chloride 110 mmol/L (98-108); Potassium 5.2 mmol/L (3.3-5.1)
[2025-05-04 15:49] LABS: Anion Gap 12 (5-15); BUN 13 mg/dL (4-19); BUN/Creat Ratio 11.9 RATIO (10-20); Calcium,Total 9.3 mg/dL (7.6-11.0); Carbon Dioxide 19.4 mmol/L (21.0-32.0); Cholesterol 123 mg/dL (<=200); Globulin 2.8 g/dL (2.2-4.2); Glucose 101 mg/dL (70-99); Low Density Lipoprotein Calc. 62 mg/dL; Triglycerides 71 mg/dL; Very Low Density Lipoprotein 14 mg/dL (5-40); cholesterol:hdl ratio screen 2.64
== END | disposition home or self-care (01) ==
LOC: MFPLAB 10:21
PROVIDERS: PCP Family Medicine; Visit Provider Family Medicine
DX: I25.10 Atherosclerotic heart disease of native coronary artery without angina pectoris (principal); E03.9 Hypothyroidism, unspecified; R73.02 Impaired glucose tolerance (oral)
CPT/HCPCS: 36415; 80053; 80061; 83036; 84439; 84443; 85025

== ENCOUNTER → 2025-05-13 | Outpatient (CLI) | payer MEDICARE, SELFPAY ==
[2021-01-08 13:54] VITALS: BMI 24.3
[2025-05-13 12:54] LABS: Potassium 4.4 mmol/L (3.3-5.1)
== END | disposition home or self-care (01) ==
LOC: MFPLAB 09:21
PROVIDERS: PCP Family Medicine; Visit Provider Family Medicine
DX: E87.5 Hyperkalemia (principal)
CPT/HCPCS: 36415; 84132